=== PATIENT | male | born 1950 | race Caucasian/White ===

== ENCOUNTER → 2018-04-17 10:35 | Outpatient (CLI) | payer OTHER, SELFPAY ==
--- NOTE | 2018-04-17 | DI.CT.S_ITS ---
PROCEDURE: CT CHEST WO CON INDICATIONS: PULMONARY NODULE TECHNIQUE: Noncontrast 2.0-2.5 mm thick sections acquired from the pulmonary apices to the posterior costophrenic angles. 7 mm thick coronal and sagittal MIP reformats were then acquired. A low radiation dose technique was utilized. COMPARISON: None. FINDINGS: Image quality: Diagnostic, given the low radiation dose technique. Lungs and pleura: On series 3/image 29, is an 8mm linear nodule in the anterior right middle lobe and a 6 mm subpleural nodule along the fissure. No additional pulmonary nodules and no infiltrates or effusions. Mediastinum: Heart size is normal. No pericardial effusion. No mediastinal adenopathy by size criteria the, the largest being a 9 mm short diameter pretracheal node. Thoracic aorta and central pulmonary arteries are normal in size. Esophagus is normal in caliber. Small hiatal hernia. Bones and chest wall: No suspicious bony lesions. No vertebral body compression fractures. No axillary or supraclavicular adenopathy by size criteria, several right axillary lymph nodes measuring 7 mm in short diameter.. Thyroid gland appears normal in size. Abdomen: Visualized upper abdomen solid organs and bowel loops appear normal in the absence of contrast. IMPRESSION: 1. 2 subcentimeter nodules are present in the right middle lobe. Followup is recommended below. 2. No lymphadenopathy by size criteria. Fleischner Society criteria for SOLID lung nodule followup. Nodule size (mm)Low-risk patientHigh-risk patient<6 (single or multiple)No routine followup.Optional CT at 12 months. 6-8 (single or multiple)CT at 6-12 months, then optional CT at 18-24 mo.CT at 6-12 months, then CT at 18-24 months. >8 (single)CT at 3 months, PET-CT, or biopsy. Same as for low-risk pts. >8 (multiple)CT at 3-6 months, then optional CT at 18-24 mo.CT at 3-6 months, then CT at 18-24 months. Fleischner Society criteria for SUB-SOLID lung nodule followup. Solitary pure ground-glass nodules<6 mm (ground glass or part solid)No followup needed. 6 mm or larger (ground glass)CT at 6-12 months to confirm persistence, then CT every 2 years until 5 years.6 mm or larger (part solid)CT at 3-6 months to confirm persistence, then annual CT until 5 years if unchanged and solid component remains <6 mm. Multiple sub-solid nodules<6 mmCT at 3-6 months, then CT consider at 2 & 4 years for high risk patients. [address] at 3-6 months. Subsequent management based on most suspicious lesions. Recommendations do not apply to lung cancer screening, patients with immunosuppression, or patients with known primary cancer. Dictated by: Yassine Rose M.D. on 04/17/2018 at 12:01 Approved by: Yassine Rose M.D. on 04/17/2018 at 12:12
== END ==
PROVIDERS: Visit Provider Internal Medicine
DX: R91.8 Other nonspecific abnormal finding of lung field (principal)
CPT/HCPCS: 71250

== ENCOUNTER → 2018-06-07 09:40 | Outpatient (CLI) | payer OTHER, SELFPAY ==
--- NOTE | 2018-06-07 | DI.CT.S_ITS ---
PROCEDURE: CT CHEST WO CON INDICATIONS: LUNG NODULES TECHNIQUE: Noncontrast 2.0-2.5 mm thick sections acquired from the pulmonary apices to the posterior costophrenic angles. 7 mm thick coronal and sagittal MIP reformats were then acquired. A low radiation dose technique was utilized. COMPARISON: [facility], CT, CT CHEST WO CON, 04/17/2018, 10:38. FINDINGS: Image quality: Diagnostic, given the low radiation dose technique. Lungs and pleura: Previously noted 8 mm solid pulmonary nodule in the anterior right middle lobe is unchanged in size after accounting for differences in imaging technique on series 3 axial image 67, this nodule demonstrates a more triangular morphology than on prior exam and is immediately adjacent to the right minor fissure, and may represent a bri-fissural lymph node. A 6 mm solid nodule along the right major fissure on series 3 axial image 67 is unchanged from prior exam as well, and also has a triangular morphology suggestive of a bri-fissural lymph node. No pleural effusions, pneumothoraces, or other airspace disease. Mediastinum: Heart size is normal. No pericardial effusion. No mediastinal adenopathy by size criteria. Thoracic aorta and central pulmonary arteries are normal in size. Mild calcific plaque of the aortic arch noted. Bones and chest wall: T12 compression fracture deformity is unchanged from prior exam. There are multilevel degenerative changes of the thoracic spine and moderate degenerative changes of the left glenohumeral joint. Abdomen: 4 mm calcification in the left renal pelvis and 2 mm calcification in the right renal pelvis, partially imaged on this exam. IMPRESSION: #1. 8 mm and 6 mm solid right lung pulmonary nodules as described above that are stable to comparison exam of 04/17/2018, with triangular morphology suggesting that these may represent bri-fissural lymph nodes. Follow-up per Fleischner criteria as listed below. #2. Subcentimeter renal calcifications are partially imaged on this exam, and may represent nephroliths. Fleischner Society criteria for SOLID lung nodule followup. Nodule size (mm)Low-risk patientHigh-risk patient<6 (single or multiple)No routine followup.Optional CT at 12 months. 6-8 (single or multiple)CT at 6-12 months, then optional CT at 18-24 mo.CT at 6-12 months, then CT at 18-24 months. >8 (single)CT at 3 months, PET-CT, or biopsy. Same as for low-risk pts. >8 (multiple)CT at 3-6 months, then optional CT at 18-24 mo.CT at 3-6 months, then CT at 18-24 months. Fleischner Society criteria for SUB-SOLID lung nodule followup. Solitary pure ground-glass nodules<6 mm (ground glass or part solid)No followup needed. 6 mm or larger (ground glass)CT at 6-12 months to confirm persistence, then CT every 2 years until 5 years.6 mm or larger (part solid)CT at 3-6 months to confirm persistence, then annual CT until 5 years if unchanged and solid component remains <6 mm. Multiple sub-solid nodules<6 mmCT at 3-6 months, then CT consider at 2 & 4 years for high risk patients. [address] at 3-6 months. Subsequent management based on most suspicious lesions. Recommendations do not apply to lung cancer screening, patients with immunosuppression, or patients with known primary cancer. Dictated by: Efe Rhodes M.D. on 06/07/2018 at 10:26 Approved by: Efe Rhodes M.D. on 06/07/2018 at 10:46
== END ==
PROVIDERS: Visit Provider Internal Medicine
DX: R91.8 Other nonspecific abnormal finding of lung field (principal); N28.89 Other specified disorders of kidney and ureter
CPT/HCPCS: 71250

== ENCOUNTER 2019-01-06 03:44 | Emergency (ER) | payer OTHER, SELFPAY ==
[2019-01-06 04:19] VITALS: BP 150/100; PULSE 74; RESP 18; TEMP 36.3; O2SAT 96
[2019-01-06 05:36] VITALS: BP 162/103; PULSE 64; RESP 20; TEMP 36.6; O2SAT 95
--- NOTE | 2019-01-06 05:42 | ED.SKABFB ---
HPI - Skin/Abscess/Foreign Bdy <Rosalinda Licona DO - Last Filed: 01/06/19 18:24> General Chief complaint: Skin/Abscess/Foreign Body Stated complaint: SWELLING UNDERNEATH RIGHT SIDE OF FACE Time Seen by Provider: 01/06/19 05:38 Source: patient Mode of arrival: ambulatory Limitations: no limitations History of Present Illness HPI narrative: Patient is a 68-year-old male who presents with lymphadenopathy anterior neck. He said he has been having some upper respiratory like symptoms he has had a nonproductive cough ongoing for about a week. Last night he took some ahte-xxz-gslaerl cold medicine to see if it would help he denies any relief. He has not had any fever body aches no shortness of breath or chest pain. He has constant like runny nose is straining. And mild sore throat at times. He denies any headache or neck pain. He has no tongue pain or dental pain. Related Data Previous Rx's Medication Instructions Recorded clindamycin HCl 300 mg PO QID #40 cap 01/06/19 Allergies Allergy/AdvReac Type Severity Reaction Status Date / Time diphenhydramine Allergy Intermediate Hives Verified 01/06/19 06:40 Review of Systems <Rosalinda Licona DO - Last Filed: 01/06/19 18:24> Review of Systems ROS Unobtainable: All systems reviewed & are unremarkable except as noted in HPI and below Constitutional Denies chills, Denies fever(s), Denies lethargy and Denies weakness ENT Ears, Nose, Mouth, and Throat: Reports as per HPI, Denies change in voice, Denies dysphagia, Denies hoarseness, Denies lip swelling, Reports post nasal drip, Denies throat swelling and Denies tongue swelling Cardiovascular Denies dyspnea Respiratory Reports chest congestion, Reports cough, Denies pain on inspiration, Denies pain with cough and Denies dyspnea Gastrointestinal Gastrointestinal: Denies dysphagia Genitourinary Denies hematuria, Denies flank pain, Denies urinary incontinence and Denies urinary urgency Musculoskeletal Denies back pain, Denies muscle weakness, Denies numbness and Denies tingling Integumentary/Breasts Denies pruritus, Denies erythema, Denies rash and Denies wounds Neurologic Denies numbness, Denies tingling and Denies weakness Allergic/Immunologic Denies lip swelling, Denies throat swelling and Denies tongue swelling PFS <Rosalinda Licona DO - Last Filed: 01/06/19 18:24> Medical History Hyperlipidemia (Acute) Social History alcohol intake: never substance use type: does not use Social History alcohol intake: never substance use type: does not use Exam <Rosalinda Licona DO - Last Filed: 01/06/19 18:24> Initial Vital Signs Initial Vital Signs: Vital Signs Temperature 97.3 F L 01/06/19 04:19 Pulse Rate 74 01/06/19 04:19 Respiratory Rate 18 01/06/19 04:19 Blood Pressure 150/100 H 01/06/19 04:19 Pulse Oximetry 96 01/06/19 04:19 GENERAL: Well-appearing, well-nourished and in no acute distress. HEENT: Head atraumatic,EOMI, pupils reactive, neck is supple. No meningeal signs He does have anterior cervical lymphadenopathy more right than left. He actually has quite a bit. No difficulty swallowing EARS: Tympanic membranes visualized, no erythema or bulging, no hemotympanum PHARYNX: Mild erythema, no tonsillar exudate, CARDIOVASCULAR: Regular rate and rhythm without murmurs, rubs or gallops. RESPIRATORY: Breath sounds equal bilaterally, no wheezes rales or rhonchi. No stridor EXTREMITIES: Normal range of motion, no clubbing or edema. Neurovascularly intact NEUROLOGICAL: Alert and oriented x4.Normal gait and speech. Cranial nerves II through XII grossly intact. SKIN: Warm, dry, no laceration, no petechiae, no rashes or lesions. <Eda Paz DO - Last Filed: 01/06/19 08:10> Initial Vital Signs Initial Vital Signs: Vital Signs Temperature 97.3 F L 01/06/19 04:19 Pulse Rate 74 01/06/19 04:19 Respiratory Rate 18 01/06/19 04:19 Blood Pressure 150/100 H 01/06/19 04:19 Pulse Oximetry 96 01/06/19 04:19 Course <Rosalinda Licona DO - Last Filed: 01/06/19 18:24> Orders Ordered: Discontinued Medications Dexamethasone (Decadron) 10 mg IV NOW ONE Stop: 01/06/19 06:08 Last Admin: 03/16/19 06:41 Dose: 10 mg Vital Signs - 8 hr 01/06/19 04:19 01/06/19 05:36 01/06/19 06:38 Temperature 97.3 F L 97.9 F Pulse Rate 74 64 64 Respiratory Rate 18 20 16 Blood Pressure 150/100 H Blood Pressure [Right Arm] 162/103 H 153/101 H Pulse Oximetry 96 95 95 01/06/19 08:05 Temperature Pulse Rate 64 Respiratory Rate 20 Blood Pressure 155/96 H Blood Pressure [Right Arm] Pulse Oximetry 96 <Eda Paz DO - Last Filed: 01/06/19 08:10> Orders Ordered: Discontinued Medications Dexamethasone (Decadron) 10 mg IV NOW ONE Stop: 01/06/19 06:08 Last Admin: 01/06/19 06:41 Dose: 10 mg Vital Signs - 8 hr 01/06/19 04:19 01/06/19 05:36 01/06/19 06:38 Temperature 97.3 F L 97.9 F Pulse Rate 74 64 64 Respiratory Rate 18 20 16 Blood Pressure 150/100 H Blood Pressure [Right Arm] 162/103 H 153/101 H Pulse Oximetry 96 95 95 01/06/19 08:05 Temperature Pulse Rate 64 Respiratory Rate 20 Blood Pressure 155/96 H Blood Pressure [Right Arm] Pulse Oximetry 96 MDM - Skin/Abscess/Foreign Bdy <Rosalinda Licona DO - Last Filed: 01/06/19 18:24> Lab Data Result diagrams: 01/06/19 06:10 01/06/19 06:10 Lab Results 01/06/19 01/06/19 01/06/19 Range/Units 06:10 06:10 06:10 WBC 7.1 (4.5-11.0) X10^3/uL RBC 5.06 (4.5-5.9) X10^6/uL Hgb 13.1 L (13.5-17.5) g/dL Hct 39.3 L (41-53) % MCV 77.8 L (80-100) fL MCH 25.8 L (26-34) PG MCHC 33.2 (30-36) % RDW 18.4 H (11.6-14.8) % Plt Count 204 (150-400) X10^3/uL Neut % (Auto) 65.1 (50-75) % Lymph % (Auto) 27.0 (25-40) % [place] % (Auto) 7.5 (3-14) % Eos % (Auto) 0.0 L (2-4) % Baso % (Auto) 0.4 (0-2) % Neut # (Auto) 4600 (3656-8112) /uL Lymph # (Auto) 1900 (8626-7021) /uL [place] # (Auto) 500 (0-900) /uL Eos # (Auto) 0 (0-450) /uL Baso # (Auto) 0 (0-100) /uL Sodium 140 (137-145) mmol/L Potassium 3.7 (3.4-5.1) mmol/L Chloride 100 (98-107) mmol/L Carbon Dioxide 29 (22-32) mmol/L BUN 21 H (9-20) mg/dL Creatinine 1.10 (0.66-1.25) mg/dL Estimated GFR > 60.0 (>60) mL/min BUN/Creatinine Ratio 19.1 (6-22) Glucose 100 (80-110) mg/dL Calcium 9.9 (8.4-10.2) mg/dL Influenza A & B (PCR) Positive, type a A (Negative) Point of Care Testing Rapid Strep A Negative MDM Narrative Medical decision making narrative: Patient positive for influenza. Signed out to Dr. Paz to await CT neck <Eda Paz, DO - Last Filed: 01/06/19 08:10> Lab Data Attestation: I reviewed the patient's lab results. Lab Results 01/06/19 01/06/19 01/06/19 Range/Units 06:10 06:10 06:10 WBC 7.1 (4.5-11.0) X10^3/uL RBC 5.06 (4.5-5.9) X10^6/uL Hgb 13.1 L (13.5-17.5) g/dL Hct 39.3 L (41-53) % MCV 77.8 L (80-100) fL MCH 25.8 L (26-34) PG MCHC 33.2 (30-36) % RDW 18.4 H (11.6-14.8) % Plt Count 204 (150-400) X10^3/uL Neut % (Auto) 65.1 (50-75) % Lymph % (Auto) 27.0 (25-40) % [place] % (Auto) 7.5 (3-14) % Eos % (Auto) 0.0 L (2-4) % Baso % (Auto) 0.4 (0-2) % Neut # (Auto) 4600 (3315-8770) /uL Lymph # (Auto) 1900 (2987-0015) /uL [place] # (Auto) 500 (0-900) /uL Eos # (Auto) 0 (0-450) /uL Baso # (Auto) 0 (0-100) /uL Sodium 140 (137-145) mmol/L Potassium 3.7 (3.4-5.1) mmol/L Chloride 100 (98-107) mmol/L Carbon Dioxide 29 (22-32) mmol/L BUN 21 H (9-20) mg/dL Creatinine 1.10 (0.66-1.25) mg/dL Estimated GFR > 60.0 (>60) mL/min BUN/Creatinine Ratio 19.1 (6-22) Glucose 100 (80-110) mg/dL Calcium 9.9 (8.4-10.2) mg/dL Influenza A & B (PCR) Positive, type a A (Negative) Point of Care Testing Rapid Strep A Negative Imaging Data CT neck with contrast: Radiologist's impression: [place] read. Extensive fat stranding surrounding the right submandibular gland consistent with sialadenitis. No stone or obstruction is appreciated. No abscess is identified. Stranding extends to the floor of mouth musculature and undersurface of right parotid gland but appears to originate from the submandibular gland. There is a borderline enlarged level 1 lymph node on the right side otherwise no lymphadenopathy. Left submandibular gland and the parotid glands are grossly unremarkable. No significant abnormalities of vocal cords, aryepiglottic folds, epiglotis, piriform sinuses or vallecula, thyroid, cricoid and arytenoid cartilages are unremarkable. Thyroid gland is unremarkable. Vascular structures are patent and unremarkable. No abnormality of the skull base appreciated. Visualized intracranial intraorbital structures are unremarkable. No significant osseous lesion identified, lung apices and visualized portion of upper mediastinum are unremarkable. MDM Narrative Medical decision making narrative: Discussed findings with patient. Plan to start clindamycin. We also discussed that his influenza swab was positive. He has had some mild symptoms for the past week a fever last Tuesday, discussed that probably he is at the tail end of influenza symptoms. Patient has not had any issues with his airway or difficulty breathing. He states symptoms started pretty much yesterday. His foot is the swelling in his ft he has not had any changes in voice or difficulty with eating discussed helping to stimulate the salivary gland to continue making saliva. We discussed the CT findings as well as the rest of his lab work. Patient is to followup he will call Tuesday morning for follow-up appointment. We did offer that he can follow up with ENT as well. Also discussed red flag symptoms and reasons to return. Discharge Plan Departure Patient Disposition: Home Clinical Impression: Lymphadenopathy, Sialadenitis, Influenza Discharge Date/Time: 01/06/19 08:06 Interventions: ED Discharge Assessment Last Done: 01/06/19 08:05 Instructions: DI for Lymphadenopathy Activity Restrictions/Additional Instructions: *You have been diagnosed with lymphadenopathy and sialadenitis or inflammation of the submandibular salivary gland. *What to do: At this time it is likely that lymph nodes are reacting to the infection/inflammation of your salivary gland. *Continue to take medications as directed Motrin 600 mg every 6 hr if needed for pain or swelling Take antibiotics until gone. Suck on lemon drops or tart candies to encourage saliva production. *Follow up with your primary care provider in 2-3 days for recheck, you may also follow up with ENT if you prefer. Contact information is below. *Return to ER if you should have increasing neck swelling, pain, hoarse voice, increasing swelling of neck and/or face, difficulty this is swallowing or any new, worsening or concerning symptoms Prescriptions: New clindamycin HCl 300 mg capsule 300 mg PO QID Qty: 40 RF: 0 Referrals: Ricky Herrera MD [Physician] -
--- NOTE | 2019-01-06 06:07 | DI.CT.S_ITS ---
PROCEDURE: CT SOFT TISSUE NECK W CON INDICATIONS: large right soft tissue swelling TECHNIQUE: After the administration of intravenous contrast, 3.0 mm axial sections acquired from the sella to the aortic arch. Additional oblique axial 3.0 mm sections acquired through the pharynx. 3 mm thick coronal and sagittal reformats were generated. For radiation dose reduction, the following was used: automated exposure control. COMPARISON: None. FINDINGS: Image quality: Excellent. Lymph nodes: No enlarged lymph nodes seen throughout the neck. Vessels: Visualized vasculature appears patent. Neck spaces: The oropharynx, nasopharynx, and pharynx demonstrate no mucosal lesions. The vocal cords, false vocal cords, pyriform sinuses, epiglottis, vallecula, and tongue base all appear normal. Extramucosal spaces appear unremarkable. No abscess identified. Glands: The right submandibular gland is mildly enlarged. Edema and inflammation involving the right submandibular gland is noted. Inflammation and edema noted in the soft tissues adjacent to the right submandibular gland. There is a 5 mm maximum diameter stone in the right submandibular gland. No right submandibular ductal dilatation is identified. The parotid glands appear normal. Thyroid gland is within normal limits.. Miscellaneous: Visualized brain and orbits appear normal. Lung apices appear clear. Superficial soft tissues appear normal. Bones: No suspicious bony lesions. Spine degenerative disc disease and facet arthropathy. Visualized sinuses and mastoids appear unremarkable. . IMPRESSION: 1. Right submandibular sialadenitis. 2. 5 mm right submandibular stone. 3. No submandibular ductal dilatation. 4. No abscess. Dictated by: Summer Aguilar MD, PhD on 01/06/2019 at 8:48 Approved by: Summer Aguilar MD, PhD on 01/06/2019 at 8:52
[2019-01-06 06:26] LABS: Add Manual Diff / Slide Review NO; Basophils Absolute Auto 0 /uL (0-100); Basophils Percent Auto 0.4 % (0-2); Eosinophils Absolute Auto 0 /uL (0-450); Hematocrit 39.3 % (41-53); Hemoglobin 13.1 g/dL (13.5-17.5); Lymphocytes Absolute Auto 1900 /uL (1100-4500); Mean Corpuscular HGB Conc 33.2 % (30-36); Mean Corpuscular Hemoglobin 25.8 PG (26-34); Mean Corpuscular Volume 77.8 fL (80-100); Monocytes Absolute Auto 500 /uL (0-900); Monocytes Percent Auto 7.5 % (3-14); Neutrophils Absolute Auto 4600 /uL (1500-7000); Neutrophils Percent Auto 65.1 % (50-75); Platelet Count 204 X10^3/uL (150-400); Red Blood Cell Count 5.06 X10^6/uL (4.5-5.9); Red Cell Distribution Width 18.4 % (11.6-14.8); White Blood Cell Count 7.1 X10^3/uL (4.5-11.0)
[2019-01-06 06:33] LABS: BUN Creatinine Ratio 19.1 (6-22); Blood Urea Nitrogen 21 mg/dL (9-20); Calcium 9.9 mg/dL (8.4-10.2); Carbon Dioxide 29 mmol/L (22-32); Chloride 100 mmol/L (98-107); Estimated Glomerular Filt Rate > 60.0 mL/min (>60); Glucose 100 mg/dL (80-110); HEMOLYSIS < 15 (0-50); Potassium 3.7 mmol/L (3.4-5.1); Sodium 140 mmol/L (137-145)
[2019-01-06 06:38] VITALS: BP 153/101; PULSE 64; RESP 16; O2SAT 95
[2019-01-06] MEDS: DEXAMETHASONE 10 MG/ML VIAL IV (06:41)
[2019-01-06 08:05] VITALS: BP 155/96; PULSE 64; RESP 20; O2SAT 96
== END 2019-01-06 08:06 | disposition home or self-care (01) ==
PROVIDERS: Emergency Medicine; Emergency Provider Emergency Medicine
DX: R59.1 Generalized enlarged lymph nodes (principal); K11.20 Sialoadenitis, unspecified; J11.1 Influenza due to unidentified influenza virus with other respiratory manifestations
CPT/HCPCS: 36591; 70491; 80048; 85025; 87400; 87880; 96374; 99283; 99285; J1100; Q9967

== ENCOUNTER → 2019-02-21 13:43 | Outpatient (CLI) | payer OTHER, SELFPAY ==
--- NOTE | 2019-02-21 | DI.MRI.S_ITS ---
PROCEDURE: MR HEAD/BRAIN WO/W CON INDICATIONS: Benign neoplasm of brain, unspecified TECHNIQUE: Noncontrast axial T1 spin echo, axial T2 fast spin echo, sagittal and axial FLAIR, coronal T2 fast spin echo, axial gradient echo, axial diffusion and ADC through the brain. After the administration of contrast, axial and coronal T1 spin echo with fat saturation through the brain. COMPARISON: [facility], [facility], MRI HEAD W/WO CONTRAST, 03/18/2017, 11:33. FINDINGS: Image quality: Excellent. CSF spaces: Basal cisterns are patent. No extra-axial fluid collections. Ventricles are normal in size and shape. Brain: No midline shift. Status post transphenoidal hypophysectomy. Remaining pituitary is gross unremarkable. No intracranial bleeds or masses. No abnormal intracranial enhancement. There is cerebral volume loss for age. There is periventricular white matter chronic small vessel ischemic change. The brainstem appears normal. Diffusion-weighted images demonstrate no acute ischemic insults. No chronic ischemic insults. Normal intravascular flow voids are present. Skull and face: Calvarial marrow is normal in signal. Orbits appear normal. Sinuses: Sinuses and mastoids appear clear. IMPRESSION: 1. Post surgical sequelae. 2. No evidence of recurrent neoplasm. 3. Volume loss and small vessel ischemic disease. Dictated by: Ellen Ferro M.D. on 02/28/2019 at 12:54 Approved by: Ellen Ferro M.D. on 02/28/2019 at 12:57
== END ==
PROVIDERS: Visit Provider Family Medicine
DX: D33.2 Benign neoplasm of brain, unspecified (principal)
CPT/HCPCS: 70553; A9579

== ENCOUNTER → 2019-03-06 10:54 | Outpatient (CLI) | payer OTHER, SELFPAY ==
--- NOTE | 2019-03-06 | DI.RAD.S_ITS ---
PROCEDURE: XR BONE LENGTH SCANOGRAM INDICATIONS: RT HIP PAIN, LEG INQUALITY TECHNIQUE: A single frontal standing view of both lower extremities acquired, with measuring ruler situated between the legs. COMPARISON: None. FINDINGS: Right: Total leg length is 85.4 cm. Left: Total leg length is 87.4 cm as measured from the cephalad aspect of the left hip arthroplasty IMPRESSION: Right and left leg lengths as above. Dictated by: Albert Shah M.D. on 03/06/2019 at 13:09 Approved by: Albert Shah M.D. on 03/06/2019 at 13:13
== END ==
PROVIDERS: Visit Provider Nurse Practitioner Family
DX: M25.551 Pain in right hip (principal); M21.70 Unequal limb length (acquired), unspecified site; Z96.642 Presence of left artificial hip joint
CPT/HCPCS: 77073

== ENCOUNTER → 2019-06-26 09:53 | Outpatient (CLI) | payer OTHER, SELFPAY ==
--- NOTE | 2019-06-26 | DI.CT.S_ITS ---
PROCEDURE: CT UE LT WO CON INDICATIONS: CHRONIC LEFT SHOULDER PAIN TECHNIQUE: Noncontrast 1-1.5 mm thick sections acquired from the acromioclavicular joint to the inferior scapula, with coronal and sagittal reformatting. COMPARISON: [facility] [place], CR, XR SHOULDER 2+ VIEWS BILATERAL, 05/29/2019, 15:03. FINDINGS: Image quality: Diagnostic. Bones: There is no acute fracture, dislocation, or suspicious osseous lesion involving the osseous structures of the left shoulder. There are severe degenerative changes of the glenohumeral and acromio clavicular joints with areas of bony remodeling, joint space narrowing, and large marginal osteophytes. There may be fragmentation along the anterior glenoid, which may be related to previous injury. The remainder of the imaged osseous structures of the left chest are unremarkable. Soft tissues: There likely is a glenohumeral joint effusion. No soft tissue masses are present. There is no axillary lymphadenopathy. The included portions of the lungs and mediastinum are grossly unremarkable. There is aortic atherosclerosis. 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 No acute fractures. Dictated by: Jovon Lovelace M.D. on 06/26/2019 at 12:52 Approved by: Jovon Lovelace M.D. on 06/26/2019 at 12:55
== END ==
PROVIDERS: Family Provider Nurse Practitioner Family; PCP Nurse Practitioner Family; Visit Provider Orthopaedic Surgery
DX: M25.512 Pain in left shoulder (principal); M19.012 Primary osteoarthritis, left shoulder; G89.29 Other chronic pain
CPT/HCPCS: 73200

== ENCOUNTER → 2019-07-16 11:07 | Outpatient (CLI) | payer OTHER, SELFPAY ==
[2019-07-16 11:34] LABS: Bacteria Urine None Seen; RBC Urine None Seen (0-5/HPF); WBC Urine None Seen (0-5/HPF)
[2019-07-16 12:21] LABS: Hematocrit 39.3 % (41-53); Hemoglobin 12.7 g/dL (13.5-17.5); Mean Corpuscular HGB Conc 32.4 % (30-36); Mean Corpuscular Hemoglobin 24.6 PG (26-34); Mean Corpuscular Volume 75.9 fL (80-100); Platelet Count 166 X10^3/uL (150-400); Red Blood Cell Count 5.18 X10^6/uL (4.5-5.9); Red Cell Distribution Width 19.1 % (11.6-14.8); White Blood Cell Count 5.7 X10^3/uL (4.5-11.0)
[2019-07-16 12:24] LABS: Appearance Urine UA CLEAR; Bilirubin Urine UA NEGATIVE (NEGATIVE); Color Urine UA YELLOW; Glucose Urine UA NEGATIVE (Negative); Ketones Urine UA NEGATIVE (NEGATIVE); Leukocyte Esterase Urine UA NEGATIVE (NEGATIVE); Nitrite Urine UA NEGATIVE (Negative); Occult Blood Urine UA NEGATIVE (Negative); Protein Urine UA TRACE (Negative); Urobilinogen Urine UA 0.2 E.U./dL (0.2)
[2019-07-16 12:39] LABS: Transferrin 371 mg/dL (206-381)
[2019-07-16 12:46] LABS: Hemoglobin A1C% w Est Avg Glu 5.6 % (4.0-6.0)
[2019-07-16 12:50] LABS: Culture Indicated Urine Cult Not Indicated; Squamous Epithelial Cell Urine 0-1 /HPF (0-5/HPF)
[2019-07-16 13:42] LABS: BUN Creatinine Ratio 15.5 (6-22); Blood Urea Nitrogen 17 mg/dL (9-20); Calcium 10.3 mg/dL (8.4-10.2); Carbon Dioxide 30 mmol/L (22-32); Chloride 97 mmol/L (98-107); Estimated Glomerular Filt Rate > 60.0 mL/min (>60); Glucose 98 mg/dL (80-110); HEMOLYSIS < 15 (0-50); Potassium 3.6 mmol/L (3.4-5.1); Sodium 138 mmol/L (137-145)
== END ==
PROVIDERS: Family Provider Nurse Practitioner Family; PCP Nurse Practitioner Family; Visit Provider Orthopaedic Surgery
DX: E61.1 Iron deficiency (principal); N39.0 Urinary tract infection, site not specified; R73.9 Hyperglycemia, unspecified; Z01.818 Encounter for other preprocedural examination
CPT/HCPCS: 36415; 80048; 81001; 83036; 84466; 85027; 93005; 93010

== ENCOUNTER → 2019-07-19 11:46 | Outpatient (CLI) | payer OTHER, SELFPAY ==
--- NOTE | 2019-07-19 | DI.CT.S_ITS ---
PROCEDURE: CT CHEST WO CON INDICATIONS: Pulmonary nodule TECHNIQUE: Noncontrast 2.0-2.5 mm thick sections acquired from the pulmonary apices to the posterior costophrenic angles. 7 mm thick axial MIP and 5 mm coronal and sagittal reformats were then acquired. A low radiation dose technique was utilized. COMPARISON: [facility], CT, CT SOFT TISSUE NECK W CON, 01/06/2019, 6:13. [facility], CT, CT CHEST WO CON, 04/17/2018, 10:38. [facility], CT, CT CHEST WO CON, 06/07/2018, 9:39. FINDINGS: Image quality: Diagnostic, given the low radiation dose technique. Lungs and pleura: A couple of pulmonary nodules are present in right lung. A 5 by 8mm nodule seen in the right minor fissure (series 3 image 140), and a 5 mm nodule in the right major fissure (series 3 image 134). Both nodules are unchanged in size since 04/17/2018. Mediastinum: Heart size is normal. No pericardial effusion. No mediastinal adenopathy by size criteria. Thoracic aorta and central pulmonary arteries are normal in size. Esophagus is normal in caliber. Tiny hiatal hernia. Bones and chest wall: No suspicious bony lesions. No vertebral body compression fractures. Multiple borderline enlarged axillary lymph nodes are present, measuring up to 1.3 cm in right axilla and 1.2 cm in left axilla. These lymph nodes are also stable. Thyroid gland is normal. Abdomen: Visualized upper abdomen solid organs and bowel loops appear normal in the absence of contrast. IMPRESSION: 1. Stable subcentimeter right lung nodules. Please see enclosed followup recommendation. 2. Borderline enlarged axillary lymph nodes are also stable, most likely reactive. Fleischner Society criteria for SOLID lung nodule followup. Nodule size (mm)Low-risk patientHigh-risk patient<6 (single or multiple)No routine followup.Optional CT at 12 months. 6-8 (single or multiple)CT at 6-12 months, then optional CT at 18-24 mo.CT at 6-12 months, then CT at 18-24 months. >8 (single)CT at 3 months, PET-CT, or biopsy. Same as for low-risk pts. >8 (multiple)CT at 3-6 months, then optional CT at 18-24 mo.CT at 3-6 months, then CT at 18-24 months. Fleischner Society criteria for SUB-SOLID lung nodule followup. Solitary pure ground-glass nodules<6 mm (ground glass or part solid)No followup needed. 6 mm or larger (ground glass)CT at 6-12 months to confirm persistence, then CT every 2 years until 5 years.6 mm or larger (part solid)CT at 3-6 months to confirm persistence, then annual CT until 5 years if unchanged and solid component remains <6 mm. Multiple sub-solid nodules<6 mmCT at 3-6 months, then CT consider at 2 & 4 years for high risk patients. [address] at 3-6 months. Subsequent management based on most suspicious lesions. Recommendations do not apply to lung cancer screening, patients with immunosuppression, or patients with known primary cancer. Dictated by: Mayco Lopez M.D. on 07/19/2019 at 13:43 Approved by: Mayco Lopez M.D. on 07/19/2019 at 13:51
== END ==
PROVIDERS: Family Provider Nurse Practitioner Family; PCP Nurse Practitioner Family; Referring Provider Orthopaedic Surgery; Visit Provider Nurse Practitioner Family
DX: R91.8 Other nonspecific abnormal finding of lung field (principal); R59.0 Localized enlarged lymph nodes
CPT/HCPCS: 71250

== ENCOUNTER 2019-08-14 10:58 | Inpatient (IN) | payer OTHER, SELFPAY ==
[2019-08-09 08:54] VITALS: BMI 35.7
[2019-08-14] VITALS (17 sets, daily range): BP systolic 135–163; BP diastolic 85–107; PULSE 86–106; RESP 12–20; TEMP 36.2–37.2; O2SAT 89–95; BMI 35.7
--- NOTE | 2019-08-14 06:00 | DI.RAD.S_ITS ---
PROCEDURE: XR SHOULDER LT MIN 2V INDICATIONS: post op TECHNIQUE: 2 views of the shoulder were acquired. COMPARISON: None. FINDINGS: Bones: Postoperative changes from recent left shoulder arthroplasty. Alignment is anatomic. No acute hardware complication identified. No acute fractures or dislocations. No suspicious bony lesions. Visualized ribs appear intact. Soft tissues: No suspicious soft tissue calcifications. Expected soft tissue changes from recent surgical procedure with soft tissue drain in place. IMPRESSION: Status post left shoulder arthroplasty without evidence for hardware complication. Dictated by: Deejay Guzman M.D. on 08/15/2019 at 10:32 Approved by: Deejay Guzman M.D. on 08/15/2019 at 10:33
[2019-08-14] MEDS: CELECOXIB 200 MG CAPSULE PO (11:59)
[2019-08-14] MEDS: PREGABALIN 75 MG CAPSULE PO (11:59)
[2019-08-14] MEDS: LACTATED RINGERS 1,000 ML 100 ML IV ×2 (12:00→15:08)
--- NOTE | 2019-08-14 13:17 | PM.PREOP ---
Pre-operative Note Interval Note History & Physical reviewed/Exam performed by Physician: Yes Changes to H&P: No
--- NOTE | 2019-08-14 13:26 | PM.OP.1 ---
Operative Date/Time/Diagnoses Date of procedure: 08/14/19 Time of procedure: 16:15 Pre-op diagnosis: Left shoulder osteoarthritis Post-op diagnosis: same Procedure & Clinicians Procedure: Left total shoulder replacement Same procedure as scheduled: Yes Indications: The patient has had progressively worsening left shoulder pain with radiographic changes consistent with arthritis. Non-operative management has failed and the patient has requested total shoulder replacement. The risks, benefits and alternatives to surgery were discussed with the patient prior to proceeding. Risks discussed included, but were not limited to, failure to relieve pain, stiffness, infection, nerve damage, deep venous thrombosis, pulmonary embolism, stroke, coma, heart attack, permanent paralysis and , as well as the potential need for eventual revision of the prosthetic. Surgeon: Loy Snider Welder Fitter Apprentice: Jc Chun Click Yes if Unassisted: No Anesthesia Type: General, Peripheral nerve block and Local Operative Notes Findings: Significant osteoarthritis of the glenohumeral joint with a B2 glenoid which was corrected by reaming the high side. Closure Type: primary Specimen(s): none sent Prosthetic devices, grafts, tissues, transplants, or devices: Prosthetics used in this procedure were manufactured by the [employer] and included an Altivate short stem total shoulder system with a size 14 stem, a neutral neck a neutral 50 mm x 18 mm humeral head and a 50 mm all polyethylene pegged E +glenoid. Applied: drain(s) and implant(s) Estimated Blood Loss (mL): 150 Blood products transfused: none Procedure in detail: The patient was seen in the pre-operative area, where the patient identified the left shoulder as the operative site and this was marked with my initials. The patient received pre-operative antibiotics, underwent an interscalene block, and was taken to the operating room and placed on the operative table in the supine position. After satisfactory anesthesia, a full ?time out? was performed. The patient was repositioned in the ?beach chair? position using a dedicated positioner. All pressure points were well padded, and the knees were slightly bent to prevent tension on the sciatic nerves. The left arm was prepared from the fingers to the base of the neck with ChloroPrep in the usual fashion and draped through sterile drapes. An approximately 15 cm incision was created, starting at the clavicle above the coracoid process and extended towards the deltoid insertion. The deltopectoral interval was used to access the shoulder. The cephalic vein was taken medially. A self retaining retractor was placed. The upper centimeter of the pectoralis major tendon was released. The ?three sisters? were identified and cauterized. The axillary nerve was palpated and protected throughout the case. The biceps was released from its groove and tenodesed over the top of the pectoralis major tendon. The subscapularis was released from the lesser tuberosity with a subscapularis peel and tagged for later repair. The shoulder was dislocated and a cutting guide was used for the proximal humeral osteotomy in 30 degrees of retroversion. A starter Reamer was used followed by the cylindrical reamers. This continued in larger sizes in till cortical bite was achieved. Sequential broaching was then performed until a line to line fit with the Reamer occurred. A proximal humeral protector was then placed. We then removed the self-retaining retractor and placed retractors to access the glenoid. The subscapularis was released with a ?360 degree release? with care being taken to protect the axillary nerve with the inferior portion of this procedure. The remnant of labrum and biceps stump were removed. The guide pin was placed using a custom guide which was created by 3D CT, this was used because of the B2 glenoid. The glenoid was appropriately reamed. The guide for the peripheral holes was used and the center hole enlarged. The trial glenoid was placed with good stability. We then cemented the final implant into place after irrigating the peg holes and drying them with thrombin-soaked Gelfoam. Unfortunately placement of the glenoid was very difficult and it required us removing the cement and trying a 2nd time. The end result was a well-fixed well-positioned and well cemented glenoid. We returned our attention to the humerus, a trial humeral head was applied and a trial reduction performed. Stability was checked with 50% posterior translation with spontaneous reduction, 45? external rotation at the side with the subscapularis held in the repaired position and 70? of internal rotation in the ?scarecrow position?. This was felt to be satisfactory and the appropriate implants were opened. Five holes were drilled along the humeral osteotomy and #2 Ethibond sutures placed for eventual subscapularis repair. The humeral prosthetic was impacted into the humerus. The humeral head was applied when the stem was still slightly proud and impacted to both seat the head and fully seat the stem. The joint was relocated one final time. The joint was irrigated and the subscapularis repaired to the previously placed sutures using Aron-Mandeep sutures. The top of the subscapularis was closed to the leading edge of the supraspinatus with a figure of 8 #2 TiCron to close the rotator interval. A deep drain was placed and brought out supero-laterally. The deltopectoral interval was closed with interrupted 0 Vicryl. The subcutaneous layer was closed with 3-0 Vicryl, and the skin with a running 3-0 V-Lock suture and SteriStrips. An Aquacel Ag dressing was applied, the patient?s arm was placed in a sling, and the patient was taken to recovery having tolerated the procedure well. Complications: none Post-operative Condition: stable Disposition: PACU Plan for aftercare: The patient will be maintained on a standard total shoulder replacement protocol with passive range of motion limited to 90 degrees forward flexion, 0 degrees external rotation at the side, 0 degrees abduction and internal rotation to the body. The patient will receive aspirin and sequential compression devices for DVT prophylaxis. The patient will be discharged home when safe for the home environment, likely tomorrow.
[2019-08-14] MEDS: CEFAZOLIN 2 GM/100 ML FROZ.PIGGY IV (14:14)
--- NOTE | 2019-08-14 14:18 | SUR.PREOP ---
Block start time [1350] . Monitoring initiated and maintained throughout procedure. Oxygen and medications given per anesthesiologist instructions. Patient remained stable throughout procedure, no adverse reactions noted. Block end time [1407].
--- NOTE | 2019-08-14 14:44 | SUR.OPER ---
Beach chair with Schlein shoulder positioner. Lower body on padded OR bed. Head in foam padded head cradle, secured with straps. Non-operative arm secured <90 degrees abduction. Pillow under knees. Safety belt at thigh. Cloth tape over blanket over lower legs.
[2019-08-14] MEDS: THROMBIN (RECOMBINANT) 5,000 UNIT VIAL 5000 UNIT TOP (14:52)
[2019-08-14] MEDS: BUPIVACAINE 0.5% W/ EPI (PF) VIAL 30 ML INJ (14:52)
[2019-08-14] MEDS: TRANEXAMIC ACID 1,000 MG VIAL 1000 MG INJ ×2 (14:53→15:25)
--- NOTE | 2019-08-14 17:04 | SUR.PHASEI ---
Patient somnolent but arouses to voice. Left shoulder warm, feels tingly. Good cap refill. Left radial pulse +2 to palpation. Hemovac with red drainage. Denies pain/nausea.
[2019-08-14] MEDS: LACTATED RINGERS 1,000 ML 125 ML IV (18:21)
[2019-08-14] MEDS: ASPIRIN EC 81 MG TABLET PO (20:55)
[2019-08-14] MEDS: PRAZOSIN 1 MG CAPSULE 2 MG PO (20:55)
[2019-08-14] MEDS: DOCUSATE 100 MG CAPSULE PO (20:56)
[2019-08-14] MEDS: GABAPENTIN 600 MG TABLET PO (21:17)
--- NOTE | 2019-08-14 23:24 | PC.NURSE ---
Admission Note: Pt admitted to ICU from PACU s/p L total shoulder arthroplasty. Pt with CMS intact, can wiggle fingers, good radial pulse, pt denies pain. Pt states that thumb and index finger on left hand are tingly. Pt noted to have a swelling of soft tissue just above incision/dressing on top of shoulder. Tissue is soft/swollen, color is normal. Dr. Gonzales to bedside to evaluate with no new orders received. Pt voiding per urinal. Placed on 2 L NC with SPO2 92%. Denies SOB. Will notify MD with changes.
[2019-08-15] MEDS: TRAZODONE 50 MG TABLET PO (01:40)
[2019-08-15] MEDS: LACTATED RINGERS 1,000 ML 125 ML IV (01:57)
[2019-08-15] MEDS: OXYCODONE IR 5 MG TABLET PO ×2 (02:20→09:06)
[2019-08-15 03:43] VITALS: BP 142/92; PULSE 87; RESP 20; TEMP 36.7; O2SAT 95
[2019-08-15 05:21] LABS: Hematocrit 35.4 % (41-53); Hemoglobin 11.5 g/dL (13.5-17.5); Mean Corpuscular HGB Conc 32.5 % (30-36); Mean Corpuscular Hemoglobin 25.1 PG (26-34); Mean Corpuscular Volume 77.3 fL (80-100); Platelet Count 172 X10^3/uL (150-400); Red Blood Cell Count 4.57 X10^6/uL (4.5-5.9); Red Cell Distribution Width 19.5 % (11.6-14.8); White Blood Cell Count 9.9 X10^3/uL (4.5-11.0)
[2019-08-15] MEDS: PANTOPRAZOLE 20 MG TABLET PO (05:41)
[2019-08-15] MEDS: OXYCODONE IR 5 MG TABLET 10 MG PO (05:42)
[2019-08-15 07:38] VITALS: BP 146/78; PULSE 73; RESP 18; TEMP 37.1; O2SAT 94
--- NOTE | 2019-08-15 07:39 | P.DS_ITS ---
History of Present Illness History of Present Illness Date Patient Seen: 08/15/19 Time Patient Seen: 07:39 Chief complaint: Left Total Shoulder Arthroplasty Narrative: The history and physical is contained in the chart in a previously completed note. Please refer to that note for this information. Discharge Providers Provider Date of admission: 08/14/19 10:58 Discharge Date: 08/15/19 Primary care physician: CJ Montenegro Consults: 08/14/19 06:00 Consult to Anesthesiology Routine Comment: Consulting Provider: Anesthesiologist Reason for consultation: Regional block for post operative pain control 08/14/19 17:32 Consult to Discharge Planning Routine Comment: Consult to Physical Therapy Evaluate & Treat Comment: Pendulums, PROM 0 ER, 90 FF, IR to body. Physician Instructions: Evaluate and Treat Consult to Respiratory Therapy Evaluate & Treat Comment: Physician Instructions: Evaluate and treat Discharge provider: Loy Snider MD Summary Hospital Course Discharge Diagnosis: 1. Left shoulder osteoarthritis 2. Post hemorrhagic anemia Hospital Course: The patient was admitted to the hospital and taken directly to the operating room on August 14, 2019. He underwent a left total shoulder re placement without complication. He was stable overnight. When examined this morning his block is still partially in place. At the time of this dictation it is anticipated he will be ready for discharge later in the day. Status at Discharge Cognitive/behavioral status at discharge: oriented Functional status at discharge: independent ambulation Overall status at discharge: patient is progressing back to baseline Time Spent with Patient Time spent: Less than 30 minutes Exam Vital Signs (past 8 hours): - 08/14/19 23:53 08/15/19 03:43 08/15/19 07:38 Temperature 98.7 F 98.1 F 98.7 F Pulse Rate 106 H 87 73 Respiratory Rate 20 20 18 Blood Pressure 135/86 142/92 H 146/78 H Pulse Oximetry 93 95 94 Oxygen Delivery Method Room Air Oxygen Flow Rate 2 Narrative Exam Narrative: Left shoulder wound is dressed with mild drainage on the bandage. Light touch is intact in the radial, ulnar, median and intact but still slightly altered in the musculocutaneous and axillary nerve distributions. The patient can extend his thumb, abduct his thumb, abduct his fingers, and fire his deltoid. As of yet he cannot flex his elbow. Objective Labs Result Diagrams: 08/15/19 05:03 Labs: Laboratory Results - last 24 hr 10/22/19 10/23/19 17:55 05:03 WBC 9.9 RBC 4.57 Hgb 11.5 L Hct 35.4 L MCV 77.3 L MCH 25.1 L MCHC 32.5 RDW 19.5 H Plt Count 172 Nasal Screen MRSA (PCR) Negative for mrsa Discharge Plan Discharge Plan Patient Disposition: Home Discharge Med Rec/Prescriptions Prescriptions: New aspirin 81 mg Tablet,Delayed Release (Dr/Ec) 81 mg PO BID 42 Days Qty: 84 RF: 0 oxycodone 5 mg Tablet 5 mg PO Q3HR PRN (Reason: Pain, Moderate (4-6)) Qty: 40 RF: 0 Continued cyclobenzaprine 10 mg Tablet 10 mg PO BEDTIME RF: 0 albuterol sulfate 2.5 mg /3 mL (0.083 %) Solution For Nebulization 2.5 mg INHALATION Q4-6H PRN (Reason: Shortness Of Breath) RF: 0 trazodone 50 mg Tablet 50 mg PO BEDTIME RF: 0 amlodipine 10 mg Tablet 10 mg PO DAILY RF: 0 gabapentin 300 mg Capsule 600 mg PO TID RF: 0 allopurinol 300 mg Tablet 300 mg PO DAILY RF: 0 hydrochlorothiazide 25 mg Tablet 25 mg PO DAILY RF: 0 albuterol sulfate 90 mcg/actuation Hfa Aerosol Inhaler 2 puff INHALATION Q4-6H PRN (Reason: Shortness Of Breath) RF: 0 prazosin 2 mg Capsule 2 mg PO BID RF: 0 mometasone 220 mcg/ actuation (60) Aerosol Powdr Breath Activated 2 inh INHALATION QAM PRN (Reason: Shortness Of Breath) RF: 0 omeprazole 20 mg Tablet,Delayed Release (Dr/Ec) 20 mg PO DAILY RF: 0 levothyroxine 75 mcg Capsule 75 mcg PO DAILY RF: 0 olodaterol 2.5 mcg/actuation Mist 2 inh INHALATION DAILY PRN (Reason: Shortness Of Breath) RF: 0 testosterone cypionate 200 mg/mL Kit 100 mg IM Q2W RF: 0 Follow up/Referrals: Loy Snider MD [Physician] - 2 Weeks Nils Lott ARNP [Primary Care Provider] - Provider Discharge Instructions Diet: Diet as Tolerated and Regular Activity: You may use your left arm in front of your body below shoulder level. Wear the sling until instructed to discontinue it by physical therapy. Cold/Heat Therapy: You may apply ice to the left shoulder for 15 minutes of every hour as needed for pain control. Skin/Wound/Dressing Care Report to your healthcare provider any signs of infection, such as:: chills, fe david, night sweats, increased pain, unusual drainage and unusual redness Dressing: Leave the dressing intact until your follow-up. You may shower with the dressing in place. If the central strip of the dressing becomes saturated with either water or blood, please call the office to have it changed. Visit Report/Discharge Packet Instructions: DI for Shoulder Replacement Stand Alone Forms: Surgery Discharge Discharge Data Primary Care Provider: Nils Lott
[2019-08-15] MEDS: LEVOTHYROXINE 75 MCG TABLET PO (07:40)
[2019-08-15] MEDS: ALLOPURINOL 300 MG TABLET PO (08:59)
[2019-08-15] MEDS: AMLODIPINE 5 MG TABLET 10 MG PO (09:03)
[2019-08-15] MEDS: ASPIRIN EC 81 MG TABLET PO (09:03)
[2019-08-15] MEDS: DOCUSATE 100 MG CAPSULE PO (09:03)
[2019-08-15] MEDS: GABAPENTIN 600 MG TABLET PO (09:04)
[2019-08-15] MEDS: hydroCHLOROthiazide 25 MG TABLET PO (09:05)
--- NOTE | 2019-08-15 09:24 | CM.IDA ---
Initial DCP Assessment Note: Pt is a 69 yo male, resident of [place], now POD#1 from shoulder surgery w/ Dr Snider PCP: Nils Lott [place]ayer: [place] Reviewed chart, met w/pt to explain SW role. Pt is indp. at his baseline and has arranged for his ex Makenna, who works as a cg, to visit him in [place] (she lives in [facility]) to assist him in his recovery. Pt plans to do outpt PT as ordered. PT Sheila outside of about to begin initial eval, pt is expected to DC today pending clearance from PT. Ortho PA has already initiated DC order this morning. No needs expected from DC planning team although will remain available in case this changes today. JOSE Lopez Discharge Planning/Care Management CM Discharge Assessment Start: 08/15/19 09:22 Freq: Status: Active Protocol: Document 08/15/19 09:23 JANEL (Rec: 08/15/19 09:24 [id number]) Discharge Planning Assessment Assigned Patient Services Coordinator JOSE Torres DPOA/Assigned Designee Name Sergio (son) Shahriar (brother) Contact Information Sergio: [phone] Shahriar: [phone] Advance Directives? Yes Advance Directives on File No History Provided By Patient,Medical Record Prior Living Arrangements House Household Members none Type of transporation used prior to Drives own vehicle admit Independent with ADL's Yes Is patient alert and oriented? Yes Patient/Family Preference OP PT Therapy Barriers to Discharge No Discharge Plan Home Transportation Arrangement family Referrals Initiated None needed Whiteboard Updated in Patient Room with Yes name and ext. # of Patient Services Coordinator Review Status In Process
[2019-08-15] MEDS: PRAZOSIN 1 MG CAPSULE 2 MG PO (10:12)
--- NOTE | 2019-08-15 10:14 | PT.IIE ---
Surgery Performed Operation Date: 08/14/19 13:15 Actual Procedures p Total Shoulder Arthroplasty(Left) - Loy Snider MD Surgical History (Last Updated 08/09/19 @ 09:32 by Lydia Washington RN) History of colonoscopy (Acute) History of lumbar laminectomy (Acute) History of total left hip arthroplasty (Acute ~2013) Hx of hernia repair (Acute ~2015) Hx of tonsillectomy (Acute) Medical History (Last Updated 08/09/19 @ 09:52 by Lydia Washington RN) Colonic polyp (Acute) Depression (Acute) Diverticulosis (Acute) GERD (gastroesophageal reflux disease) (Acute) Gout (Acute) Hearing impaired (Acute) Hernia (Acute) HTN (hypertension) (Acute) Hyperlipidemia (Acute) Hypothyroid (Acute) Influenza A (Acute ~01/06/19) Osteoarthritis (Acute) Pituitary adenoma (Acute ~2013) Pulmonary nodule (Acute) Scoliosis (Acute) Spinal stenosis (Acute) Physical Therapy Inpatient Evaluation/Re-Eval M1 PT/OT-IP Prior Functional Status Start: 08/15/19 09:04 Freq: NEEDED Status: Active Protocol: Document 08/15/19 09:59 AW (Rec: 08/15/19 10:14 AW [id number]) Medical Review Prior Functional Status Medical History Reviewed Yes Diet/Fluid Consistency Regular Communication Able to make needs known Mobility and Gait Independent with all functional mobility, no use of assistive device. He does report one non-injurious fall in his home 1.5 years ago but does recall any other falls. Activities of Daily Living and IADL's Independent Social History Household Members none Living Arrangements House Number of Floors (Floors) One Floor Number of Stairs To Enter/Railing? 2 TREVOR no railing Home Environment Standard Height Toilet,Walk in Shower,Built-In Shower Seat, Bidet Home Equipment Front Wheel Walker,Quad Cane, Straight Cane,Crutches,Raised Toilet Seat Without Armrests, Hand Held Shower,Hospital Bed Employment Status Retired Additional Social History Comment Pt lives alone M2 PT-IP Current Condition Start: 08/15/19 09:04 Freq: NEEDED Status: Active Protocol: Document 08/15/19 09:59 AW (Rec: 08/15/19 10:14 AW [id number]) Physical Therapy Current Condition Current Condition Evaluation Date 08/15/19 Treatment Diagnosis s/p L TSA, impaired mobility Precautions Shoulder Precautions Sling,PROM,Internal Rotation to Body,No External Rotation, No Abduction,Forward Flexion to 90 degrees,Pendulums Weight Bearing Status Weight Bearing Status Full Weight Bearing M3 PT-IP Subjective Start: 08/15/19 09:04 Freq: NEEDED Status: Active Protocol: Document 08/15/19 09:59 AW (Rec: 08/15/19 10:14 AW [id number]) Subjective Physical Therapy Visit Type Type Initial Evaluation Visit Start Time 09:17 Visit Stop Time 09:53 Total Visit Minutes 36 Number of MANAGING MANAGER Visits 0 Physical Therapy Visit Comments Patient Comments Pt is anxious to go home Patient Goals Pt hopes to discharge to home today Therapy Pain Assessment Pain When Pain Assessed During Mobility Pain Present Pain Present Pain Reported Location left shoulder Intensity 4 Scale Used 3/10 at rest; 4/10 with mobility Description Throbbing Pain Management Techniques Apply Cold,Re-positioning, Timing of Activity with Medications M4 PT-IP Mobility and Gait Start: 08/15/19 09:04 Freq: NEEDED Status: Active Protocol: Document 08/15/19 09:59 AW (Rec: 08/15/19 10:14 AW [id number]) PT-Bed Mobility Assessment Supine to Sit Supine to Sit Standby Assistance Scooting Scooting to Edge of Bed Standby Assistance Scooting Up and Down in Bed Standby Assistance PT-Transfer Assessment Sit to and From Stand Sit to and from Stand Standby Assistance Equipment Transfer Assistive Device Gait Belt Transfers Transfer Destination Chair,Toilet Transfer Technique pt ambulated without AD Transfer Ability Level of Assist Standby Assistance Comments Mobility Comments Pt required cues to avoid shoulder elevation. He was steady on his feet Gait Assessment Gait Gait Assistance Required: Independent,Standby Assistance Distance (Feet) 100 Able to Maintain Weight Bearing Status Yes During Gait Assistive Devices Assistive Device Gait Belt Orthotic/Prosthetic Devices or Brace: No Gait Deviations General Gait Pattern Wide Based Gait Factors Limiting Gait Function Factors Limiting Gait Function Decreased Activity Tolerance, Decreased Strength,Pain Comments Gait Comments Pt was independent to SBA for ambulation ~100 feet on tile and carpet. He managed turns and side stepping without increased need for assist. PT-Balance Assessment Sitting Balance and Reactions Static Sitting Balance Ability Normal Dynamic Sitting Balance Ability Normal Standing Balance and Reactions Static Standing Balance Ability Good Dynamic Standing Balance Ability Good Device Used none M5 PT-IP Objective Assessments Start: 08/15/19 09:04 Freq: NEEDED Status: Active Protocol: Document 08/15/19 09:59 AW (Rec: 08/15/19 10:14 AW [id number]) Orientation Orientation/Cognition Level of Alertness Alert Orientation Name,Date,Place,Situation Language Function Ability No Deficits Noted Safety Awareness Understands Safety Issues Memory Description No Deficits Noted Gross Range of Motion Upper Extremity ROM Assessment Left Impaired Lower Extremity ROM Assessment Within Functional Limits Strength Upper Extremity Strength Assessment Left Impaired Comments Strength Comments RUE grossly 5/5. BLE 4+/5 in all planes. Coordination Assessment Gross Coordination Gross Coordination WNL Sensation Assessment Sensation Gross Sensation Left UE Impaired,Left LE Impaired Light Touch Impaired Comments Sensation Comments Pt reports ongoing numbness in left lateral arm. On exam, he exhibited impaired light touch on dorsal left foot. M6 PT-IP Treatment Start: 08/15/19 09:04 Freq: NEEDED Status: Active Protocol: Document 08/15/19 09:59 AW (Rec: 08/15/19 10:14 AW [id number]) Physical Therapy Treatment Exercises Exercises Shoulder Pendulums,Elbow Flexion/Extension,Wrist ROM, Hand ROM Education Education Provided Precautions,Weight Bearing Status,Post-Op Packet,Safety Brace Education [place],Patient Other Treatments Other Treatment Performed Pt educated on use of sling while up and need for LUE support while not in brace as in the shower. 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 PLOF: Pt was independent with all functional mobility, ADL's , IADL's. CLOF: Pt required no more than SBA for all mobility. He was able to verbalize post-op precautions, but required verbal cues to avoid shoulder elevation. Pt educated on donning/doffing shoulder brace, performance of ADL's, forward/backward pendulums, and PROM for left elbow, wrist, fingers. PT recommends discharge to home and outpatient PT when medically cleared. Goals Bed Mobility Goal Independent Transfer Goal Independent Gait Goal Independent Other Goals up/down 2 stairs independent without railing Days to Meet Goals 1 Frequency of Treatment Frequency Of Treatment Twice a Day Treatment Plan Physical Therapy Treatment Plan Bed Mobility Training,Transfer Training,Gait Training, Therapeutic Exercise,Balance Retraining,Post Op Education, Discharge Planning,Hot or Cold Pack,Manual Therapy Recommendations To Nursing Amount of Assist Needed Standby Assistance Discharge Recommendations PT Discharge Recommendations Home,Outpatient PT
== END 2019-08-15 10:30 | disposition home or self-care (01) | DRG 483 ==
LOC: AC 11:02 → ICU 11:59
PROVIDERS: Admitting Provider Orthopaedic Surgery; Family Provider Nurse Practitioner Family; PCP Nurse Practitioner Family; Visit Provider Orthopaedic Surgery
PROC: 0RRK0JZ Replacement of Left Shoulder Joint with Synthetic Substitute, Open Approach (ICD-10-PCS; CPT 23472; principal; 2019-08-14 13:15)
DX: M19.012 Primary osteoarthritis, left shoulder (principal); E03.9 Hypothyroidism, unspecified; I10 Essential (primary) hypertension; E78.5 Hyperlipidemia, unspecified; K21.9 Gastro-esophageal reflux disease without esophagitis; M10.9 Gout, unspecified; Z87.891 Personal history of nicotine dependence
CPT/HCPCS: 36415; 64450; 73030; 85027; 87797; 97161; 97530; C1776; J0690; J1100; J2250; J2704; J3010

== ENCOUNTER 2020-08-19 10:36 | Emergency (ER) | payer OTHER, SELFPAY ==
[2019-08-14 18:00] VITALS: BMI 35.7
--- NOTE | 2020-08-19 10:37 | ED_ITS ---
HPI - Ear Problem General Chief complaint: Ear Stated complaint: Ear pain Time Seen by Provider: 08/19/20 10:37 Source: patient Mode of arrival: Ambulatory Limitations: no limitations History of Present Illness HPI Narrative: 70M nonsmoker with history of asthma and HTN presents with the chief complaint of some right ear pain and drainage that started over the course of the night. He denies any injury, diving, flights, or systemic findings such as fever, chills nor nausea or vomiting. He 1st sent some pain and swelling and itching of his canal and now has symptoms as stated above. He has no pain on palpation of his mastoid. Related Data Home Medications Medication Instructions Recorded Confirmed albuterol sulfate 2 puff INHALATION Q4-6H PRN 08/09/19 08/14/19 albuterol sulfate 2.5 mg INHALATION Q4-6H PRN 08/09/19 08/14/19 allopurinol 300 mg PO DAILY 08/09/19 08/14/19 amlodipine 10 mg PO DAILY 08/09/19 08/14/19 cyclobenzaprine 10 mg PO BEDTIME 08/09/19 08/14/19 gabapentin 600 mg PO TID 08/09/19 08/14/19 hydrochlorothiazide 25 mg PO DAILY 08/09/19 08/14/19 levothyroxine 75 mcg PO DAILY 08/09/19 08/14/19 mometasone 2 inh INHALATION QAM PRN 08/09/19 08/14/19 olodaterol 2 inh INHALATION DAILY PRN 08/09/19 08/14/19 omeprazole 20 mg PO DAILY 08/09/19 08/14/19 prazosin 2 mg PO BID 08/09/19 08/14/19 testosterone cypionate 100 mg IM Q2W 08/09/19 08/14/19 trazodone 50 mg PO BEDTIME 08/09/19 08/14/19 Previous Rx's Medication Instructions Recorded oxycodone 5 mg PO Q3HR PRN #40 tab 08/15/19 ofloxacin 5 drop EAR-RIGHT DAILY 10 Days ml 08/19/20 Allergies Allergy/AdvReac Type Severity Reaction Status Date / Time clindamycin Allergy Severe Rash Verified 08/19/20 10:53 diphenhydramine Allergy Intermediate Hives Verified 08/19/20 10:53 acetaminophen Allergy Mild Rash on Verified 08/19/20 10:53 arms lisinopril AdvReac Severe Cough Verified 08/19/20 10:53 Review of Systems Constitutional Constitutional: Denies chills, Denies fatigue, Denies fever(s), Denies frequent falls, Denies lethargy and Denies weakness Eyes Eyes: Denies change in vision, Denies eye discharge, Denies irritation and Denies loss of vision ENT Ears, Nose, Mouth, and Throat: Denies change in voice, Denies dizziness, Reports ear discharge, Denies neck pain, Denies sore throat and Denies throat swelling Cardiovascular Cardiovascular: Denies chest pain, Denies irregular heart rhythm, Denies lightheadedness, Denies palpitations, Denies dyspnea, Denies dyspnea on exertion and Denies orthopnea Respiratory Respiratory: Denies cough, Denies dyspnea, Denies dyspnea on exertion and Denies wheezing Gastrointestinal Gastrointestinal: Denies abdominal pain, Denies change in bowel habits, Denies diarrhea, Denies nausea and Denies vomiting Musculoskeletal Musculoskeletal: Denies neck pain and Denies numbness Integumentary/Breasts Skin/Breast: Denies pruritus, Denies erythema, Denies rash and Denies wounds Neurologic Neurologic: Denies behavioral changes, Denies confusion, Denies dizziness, Denies frequent falls, Denies loss of vision, Denies numbness and Denies weakness Psychiatric Psychiatric: Denies anxiety, Denies behavioral changes, Denies confusion, Denies depression, Denies homicidal ideation and Denies suicidal ideation Endocrine Endocrine: Denies fatigue, Denies flushing and Denies palpitations Hematologic/Lymphatic Hematologic/Lymphatic: Denies easy bruising Allergic/Immunologic Allergic/Immunologic: Denies urticaria, Denies throat swelling and Denies wheezing Patient History Medical History Colonic polyp (Acute) Depression (Acute) Diverticulosis (Acute) GERD (gastroesophageal reflux disease) (Acute) Gout (Acute) Hearing impaired (Acute) Hernia (Acute) HTN (hypertension) (Acute) Hyperlipidemia (Acute) Hypothyroid (Acute) Influenza A (Acute ~01/06/19) Osteoarthritis (Acute) Pituitary adenoma (Acute ~2014) Pulmonary nodule (Acute) Scoliosis (Acute) Spinal stenosis (Acute) Surgical History History of colonoscopy (Acute) History of lumbar laminectomy (Acute) History of total left hip arthroplasty (Acute ~2013) Hx of hernia repair (Acute ~2016) Hx of tonsillectomy (Acute) Social History household members: none Smoking Status: Former smoker alcohol intake: current substance use type: does not use Smoking Status: Former smoker Substance Use Type: marijuana Exam Narrative Exam Narrative: GENERAL: [70] year old patient appears stated age. Well- nourished, well-developed patient, in mild distress. HEAD: Atraumatic. Normocephalic. EYES: Pupils equal round and reactive. Extraocular motions intact. No scleral icterus. No injection or drainage. ENT: Right external auditory canal with purulence fluid and debris in the canal, mild edema of the canal itself. Unable to visualize the tympanic membrane. No tenderness with pressure on erickson out, no tenderness to palpation over mastoid processes. Nose without bleeding, purulent drainage. Throat without erythema, tonsillar hypertrophy or exudate. Airway patent. NECK: Trachea midline. Non tender CARDIOVASCULAR: Regular rate and rhythm without murmurs, gallops, or rubs. RESPIRATORY: Clear to auscultation. Breath sounds equal bilaterally. No wheezes, rales, or rhonchi. GASTROINTESTINAL: Abdomen soft, non-tender, nondistended. EXTREMITIES: No edema or joint tenderness. BACK: Nontender without deformity or crepitance. No flank tenderness. NEURO: AOx3. SKIN: No rash or erythema of visible areas Initial Vital Signs Initial Vital Signs: Vital Signs Temperature 98.2 F 08/19/20 10:50 Pulse Rate 98 H 08/19/20 10:50 Respiratory Rate 16 08/19/20 10:50 Blood Pressure 165/100 H 08/19/20 10:50 Pulse Oximetry 100 08/19/20 10:50 Course Vital Signs Vital signs: Vital Signs - 8 hr 08/19/20 10:50 Temperature 98.2 F Pulse Rate 98 H Respiratory Rate 16 Blood Pressure 165/100 H Pulse Oximetry 100 Medical Decision Making MDM Narrative Medical decision making narrative: Minimal swelling of the external auditory canal and noted drainage with debris. Unable to visualize tympanic membrane but the patient's description of his symptoms and exam are most suspicious for otitis externa, however otitis media with perforation was considered. Return precautions given to patient any understands need to follow-up with ear nose and throat. Questions have been answered to his apparent satisfaction. Discharge Plan Departure Patient Disposition: Home Clinical Impression: Otitis externa Qualifiers: Otitis externa type: diffuse Chronicity: acute Laterality: right Qualified Code(s): H60.311 - Diffuse otitis externa, right ear Discharge Date/Time: 08/19/20 11:04 Activity Restrictions/Additional Instructions: *You have been diagnosed with [right otitis externa] *What to do: *Take medications as directed *Follow up Dr. Carrasco or Dr. Lacy at [facility] in 2-3 days, call for an appointment. Let them know you were seen in the Emergency Department and that we ask that you be seen in follow up *Return to ER if you should have any new, worsening or concerning symptoms, such as [fever, facial swelling or pain, vomiting or other bothersome symptoms ] Prescriptions: New ofloxacin 0.3 % drops 5 drop EAR-RIGHT DAILY 10 Days RF: 0 No Action cyclobenzaprine 10 mg Tablet 10 mg PO BEDTIME RF: 0 albuterol sulfate 2.5 mg /3 mL (0.083 %) Solution For Nebulization 2.5 mg INHALATION Q4-6H PRN (Reason: Shortness Of Breath) RF: 0 trazodone 50 mg Tablet 50 mg PO BEDTIME RF: 0 amlodipine 10 mg Tablet 10 mg PO DAILY RF: 0 gabapentin 300 mg Capsule 600 mg PO TID RF: 0 allopurinol 300 mg Tablet 300 mg PO DAILY RF: 0 hydrochlorothiazide 25 mg Tablet 25 mg PO DAILY RF: 0 albuterol sulfate 90 mcg/actuation Hfa Aerosol Inhaler 2 puff INHALATION Q4-6H PRN (Reason: Shortness Of Breath) RF: 0 prazosin 2 mg Capsule 2 mg PO BID RF: 0 mometasone 220 mcg/ actuation (60) Aerosol Powdr Breath Activated 2 inh INHALATION QAM PRN (Reason: Shortness Of Breath) RF: 0 omeprazole 20 mg Tablet,Delayed Release (Dr/Ec) 20 mg PO DAILY RF: 0 levothyroxine 75 mcg Capsule 75 mcg PO DAILY RF: 0 olodaterol 2.5 mcg/actuation Mist 2 inh INHALATION DAILY PRN (Reason: Shortness Of Breath) RF: 0 testosterone cypionate 200 mg/mL Kit 100 mg IM Q2W RF: 0 oxycodone 5 mg Tablet 5 mg PO Q3HR PRN (Reason: Pain, Moderate (4-6)) Qty: 40 RF: 0 Referrals: Troy Carrasco MD [Physician] - Nils Lott ARNP [Primary Care Provider] -
[2020-08-19 10:50] VITALS: BP 165/100; PULSE 98; RESP 16; TEMP 36.8; O2SAT 100; BMI 38.0
== END 2020-08-19 11:04 | disposition home or self-care (01) ==
PROVIDERS: Emergency Provider Emergency Medicine; Family Provider Nurse Practitioner Family; PCP Nurse Practitioner Family
DX: H60.311 Diffuse otitis externa, right ear (principal)
CPT/HCPCS: 99281

== ENCOUNTER → 2021-06-10 12:50 | Outpatient (CLI) | payer OTHER, SELFPAY ==
[2019-08-14 18:00] VITALS: BMI 35.7
[2021-06-10 16:18] LABS: Enterotoxigenic E.coli It/st Detected (Not Detect)
[2021-06-10 16:19] LABS: Adenovirus F 40/41 Not Detected (Not Detect); Astrovirus Not Detected (Not Detect); Campylobacter Not Detected (Not Detect); Clostridium difficile toxin AB Not Detected (Not Detect); Cryptosporidium Not Detected (Not Detect); Cyclospora cayetanensis Not Detected (Not Detect); Entamoeba histolytica Not Detected (Not Detect); Enteroaggregative E.coli Not Detected (Not Detect); Enteropathogenic E.coli Not Detected (Not Detect); Giardia lamblia Not Detected (Not Detect); Norovirus GI/GII Not Detected (Not Detect); Plesiomonsa shigelloides Not Detected (Not Detect); Rotavirus A Not Detected (Not Detect); Salmonella Not Detected (Not Detect); Sapovirus Not Detected (Not Detect); Shiga-like toxin-prod E.coli Not Detected (Not Detect); Shigella/Enteroinvasive E.coli Not Detected (Not Detect); Vibrio Not Detected (Not Detect); Vibrio cholerae Not Detected (Not Detect); Yersinia enterocolitica Not Detected (Not Detect)
== END ==
PROVIDERS: Family Provider Nurse Practitioner Family; PCP Nurse Practitioner Family; Referring Provider Physician Assistant; Visit Provider Physician Assistant
DX: R19.7 Diarrhea, unspecified (principal); Z90.2 Acquired absence of lung [part of]
CPT/HCPCS: 87507

== ENCOUNTER → 2021-10-13 08:53 | Outpatient (CLI) | payer OTHER, SELFPAY ==
[2019-08-14 18:00] VITALS: BMI 35.7
--- NOTE | 2021-10-13 | DI.US.S_ITS ---
PROCEDURE: US ABD AORTA ANEURYSM SCREEN INDICATIONS: NICOTINE DEPENDENCE TECHNIQUE: Real time scanning was performed of the aorta and iliac arteries, with image documentation. COMPARISON: None. FINDINGS: Aorta: Proximal aortic diameter is suboptimally seen but measures roughly 3.1 cm. Mid-aorta measures 2.1 cm. Distal aortic diameter is 2.3 cm. Iliac arteries: Right common iliac artery measures 1.9 cm. Left common iliac artery measures 2.0 cm. IMPRESSION: 1. Mild aneurysmal dilatation of the proximal abdominal aorta likely measuring up to 3.1 cm. Three year follow-up ultrasound is recommended to assess for stability. 2. No mid to distal aortic or common iliac artery aneurysm. Dictated by: Yadi Cardenas M.D. on 10/13/2021 at 13:02 Approved by: Yadi Cardenas M.D. on 10/13/2021 at 13:05
== END ==
PROVIDERS: Family Provider Nurse Practitioner Family; PCP Nurse Practitioner Family; Referring Provider Nurse Practitioner Family; Visit Provider Nurse Practitioner Family
DX: Z13.6 Encounter for screening for cardiovascular disorders (principal); I71.4 Abdominal aortic aneurysm, without rupture; F17.211 Nicotine dependence, cigarettes, in remission
CPT/HCPCS: 76706

== ENCOUNTER 2021-12-30 12:29 | Emergency (ER) | payer OTHER, SELFPAY ==
[2019-08-14 18:00] VITALS: BMI 35.7
[2021-12-30 12:38] VITALS: BP 149/96; PULSE 90; RESP 15; TEMP 36.2; O2SAT 95; BMI 38.7
--- NOTE | 2021-12-30 14:13 | ED_ITS ---
HPI - Nausea/Vomiting/Diarrhea <CJ Green - Last Filed: 12/30/21 18:55> General Chief complaint: Nausea/Vomiting/Diarrhea Stated complaint: reaction to booster,vomiting Time Seen by Provider: 12/30/21 13:53 Source: patient Mode of arrival: Ambulatory History of Present Illness HPI Narrative: Male presents to the emergency department with nausea and vomiting that started after his COVID booster vaccination yesterday. Patient states he has been unable to keep anything down today. Patient denies any hives, shortness of breath, wheezing, cough but does endorse he was unable to keep any of his medic ations on this morning. He denies any diarrhea, fever, chest pain, mouth or oral swelling, or any other symptoms besides nausea and vomiting. Patient denies any known allergens, denies any new foods or other new exposures. Related Data Home Medications Medication Instructions Recorded Confirmed albuterol sulfate 2.5 mg INHALATION Q4-6H PRN 08/09/19 08/14/19 albuterol sulfate 90 mcg/actuation 2 puff INHALATION Q4-6H PRN 08/09/19 08/14/19 aerosol inhaler allopurinol 300 mg tablet 300 mg PO DAILY 08/09/19 08/14/19 amlodipine 10 mg tablet 10 mg PO DAILY 08/09/19 08/14/19 cyclobenzaprine 10 mg tablet 10 mg PO BEDTIME 08/09/19 08/14/19 gabapentin 300 mg capsule 600 mg PO TID 08/09/19 08/14/19 hydrochlorothiazide 25 mg tablet 25 mg PO DAILY 08/09/19 08/14/19 levothyroxine 75 mcg capsule 75 mcg PO DAILY 08/09/19 08/14/19 mometasone 2 inh INHALATION QAM PRN 08/09/19 08/14/19 olodaterol 2.5 mcg/actuation mist 2 inh INHALATION DAILY PRN 08/09/19 08/14/19 for inhalation omeprazole 20 mg tablet,delayed 20 mg PO DAILY 08/09/19 08/14/19 release prazosin 2 mg capsule 2 mg PO BID 08/09/19 08/14/19 testosterone cypionate 200 mg/mL 100 mg IM Q2W 08/09/19 08/14/19 intramuscular kit trazodone 50 mg tablet 50 mg PO BEDTIME 08/09/19 08/14/19 Previous Rx's Medication Instructions Recorded oxycodone 5 mg tablet 5 mg PO Q3HR PRN #40 tab 08/15/19 ondansetron 4 mg disintegrating 4 mg PO Q8HR PRN #10 tab 12/30/21 tablet Allergies Allergy/AdvReac Type Severity Reaction Status Date / Time clindamycin Allergy Severe Rash Verified 12/30/21 12:38 diphenhydramine Allergy Intermediate Hives Verified 12/30/21 12:38 acetaminophen Allergy Mild Rash on Verified 12/30/21 12:38 arms lisinopril AdvReac Severe Cough Verified 12/30/21 12:38 Review of Systems <CJ Green - Last Filed: 12/30/21 18:55> Review of Systems Narrative: General: denies fever, chills, malaise, sweats, fatigue Head/Neck: denies headache, neck pain, dizziness Eyes: denies visual changes, eye pain Cardio: denies chest pain, palpitations, edema Respiratory: denies dyspnea, cough, orthopnea GI: denies abdominal pain, endorses nausea and vomiting without diarrhea : denies dysuria, hematuria, urinary retention, frequency or incontinence MSK: denies joint pain, muscle weakness Skin: denies rash, itching, skin lesions or other Neuro: denies numbness, tingling Patient History <CJ Green - Last Filed: 12/30/21 18:55> Medical History (Updated 12/30/21 @ 14:55 by CJ Green) Colonic polyp Depression Diverticulosis GERD (gastroesophageal reflux disease) Gout Hearing impaired Hernia HTN (hypertension) Hyperlipidemia Hypothyroid Influenza A (~01/06/19) Osteoarthritis Pituitary adenoma (~2013) Pulmonary nodule Scoliosis Spinal stenosis Surgical History History of colonoscopy History of lumbar laminectomy History of total left hip arthroplasty (~2013) Hx of hernia repair (~2015) Hx of tonsillectomy Social History household members: none Smoking Status: Former smoker alcohol intake: current substance use type: does not use Smoking Status: Former smoker alcohol intake frequency: holidays/special occasions only Substance Use Type: does not use Exam <CJ Green - Last Filed: 12/30/21 18:55> Narrative Exam Narrative: Independently reviewed vitals signs and nursing notes. General: Cooperative, comfortable, in no acute distress, well developed and well groomed Head/Neck: Normal visual inspection and supple no lymphadenopathy. Normal facial exam no angioedema Eyes: Pupils equal round and reactive, EOMI, conjunctiva normal, no scleral icterus or injections Nose: External nose normal, nares patent, no rhinorrhea, without purulent drainage Mouth/Throat: uvula midline, moist mucus membranes Cardio: Regular rate and rhythm, no peripheral edema, warm extremities Respiratory: Normal respiratory effort, able to speak in complete sentences w ithout audible wheezing, stridor, or rales. No retractions. GI: Abdomen soft, nontender to palpation x4 quadrants, nondistended, no masses or exquisite tenderness with exam, no flank tenderness MSK: Moves all extremities, neurovascularly intact Skin: Normal capillary refill, no rash Neuro: Normal speech and cognition, normal gait, A&O x3, tone normal, moves all extremities Psych: Mental status is grossly normal, speech is clear, congruent mood, normal affect Initial Vital Signs Initial Vital Signs: Vital Signs Temperature 97.1 F L 12/30/21 12:38 Pulse Rate 90 12/30/21 12:38 Respiratory Rate 15 12/30/21 12:38 Blood Pressure 149/96 H 12/30/21 12:38 Pulse Oximetry 95 12/30/21 12:38 <Rosalinda Licona DO - Last Filed: 12/31/21 06:57> Initial Vital Signs Initial Vital Signs: Vital Signs Temperature 97.1 F L 12/30/21 12:38 Pulse Rate 90 12/30/21 12:38 Respiratory Rate 15 12/30/21 12:38 Blood Pressure 149/96 H 12/30/21 12:38 Pulse Oximetry 95 12/30/21 12:38 Course <CJ Green - Last Filed: 12/30/21 18:55> Orders Ordered: Discontinued Medications Ondansetron HCl (Ondansetron 4 Mg Odt) 4 mg SL NOW ONE Stop: 12/30/21 13:54 Last Admin: 12/30/21 14:16 Dose: 4 mg Documented by: BHARAT Vital Signs Vital signs: Vital Signs - 8 hr 12/30/21 12:38 12/30/21 14:59 Temperature 97.1 F L Pulse Rate 90 89 Respiratory Rate 15 Blood Pressure 149/96 H 136/94 H Pulse Oximetry 95 93 <Rosalinda Licona DO - Last Filed: 12/31/21 06:57> Orders Ordered: Discontinued Medications Ondansetron HCl (Ondansetron 4 Mg Odt) 4 mg SL NOW ONE Stop: 12/30/21 13:54 Last Admin: 12/30/21 14:16 Dose: 4 mg Documented by: BHARAT Vital Signs Vital signs: Vital Signs - 8 hr 12/30/21 12:38 12/30/21 14:59 Temperature 97.1 F L Pulse Rate 90 89 Respiratory Rate 15 Blood Pressure 149/96 H 136/94 H Pulse Oximetry 95 93 MDM - Nausea/Vomiting/Diarrhea <CJ Green - Last Filed: 12/30/21 18:55> MDM Narrative Medical decision making narrative: 71-year-old pleasant gentleman presents to the emergency department 1 day following his COVID booster vaccination with nausea and vomiting which started this morning he vomited at 1:00 p.m. and intermittently since. Patient was given 4 mg ODT Zofran, was able to drink water afterwards without any more emesis. Patient stated that he felt better was ready to go home. Patient did not have any urticaria, shortness of breath, wheezing, chest tightness, angioedema, or any other symptom. Patient was given strict return precautions. And encouraged close follow-up with primary care provider. Differential includes viral illness, gastroenteritis, food-borne illness. Patient is appropriate and amenable to discharge home. Vital signs are stable on repeat examination is unremarkable. Patient has been informed of results. Patient has been given strict return to ER precautions for any new or worsening symptoms. Patient understands to follow up closely with outpatient providers as instructed. Patient understands plan and agrees to discharge home. All questions and concerns answered at this time. Discharge Plan Departure Patient Disposition: Home Clinical Impression: Vaccine reaction Qualifiers: Encounter type: initial encounter Qualified Code(s): T50.Z95A - Adverse effect of other vaccines and biological substances, initial encounter Nausea & vomiting Qualifiers: Vomiting type: unspecified Vomiting Intractability: non-intractable Qualified Code(s): R11.2 - Nausea with vomiting, unspecified Instructions: DI for Vomiting -- Adult Activity Restrictions/Additional Instructions: *You have been diagnosed with nausea vomiting likely related to your COVID vaccination booster. If you feel nauseated, you can take 1 tab of Zofran every 8 hours as needed. You may take another tab before then today if your nausea comes back. Please return for any worsening of your symptoms, blood in your stool or your emesis, shortness of breath, swelling of your mouth or lips, wheezing, hives. I hope you feel better soon. *What to do: *Please continue to take your regular medications as directed. [ x] New medication prescriptions sent to your pharmacy: [ [facility]] [ ] New medication written as a paper prescription [ ] No new medications given *Please follow up with your primary care provider in 2-3 days, call for an appointment. Let them know you were seen in the Emergency Department and that we ask that you be seen in follow up. We will electronically transmit a record of today's note if your PCP is in our system *If you do not have a primary care provider please contact the [facility] Resource line at [phone]. They will ask some questions about your medical history and help get you set up with a doctor in the community. *Return to Emergency Department if you should have any new, worsening or concerning symptoms, such as [fever greater than 101F, chills, worsening pain, persistent vomiting or other bothersome symptoms] Prescriptions: New ondansetron 4 mg tablet,disintegrating 4 mg PO Q8HR PRN (Reason: nausea and vomiting) Qty: 10 0RF No Action cyclobenzaprine 10 mg Tablet 10 mg PO BEDTIME 0RF albuterol sulfate 2.5 mg /3 mL (0.083 %) Solution For Nebulization 2.5 mg INHALATION Q4-6H PRN (Reason: Shortness Of Breath) 0RF trazodone 50 mg Tablet 50 mg PO BEDTIME 0RF amlodipine 10 mg Tablet 10 mg PO DAILY 0RF gabapentin 300 mg Capsule 600 mg PO TID 0RF Rx Instructions: 600mg bid, 300mg bedtime allopurinol 300 mg Tablet 300 mg PO DAILY 0RF hydrochlorothiazide 25 mg Tablet 25 mg PO DAILY 0RF albuterol sulfate 90 mcg/actuation Hfa Aerosol Inhaler 2 puff INHALATION Q4-6H PRN (Reason: Shortness Of Breath) 0RF prazosin 2 mg Capsule 2 mg PO BID 0RF mometasone 220 mcg/ actuation (60) Aerosol Powdr Breath Activated 2 inh INHALATION QAM PRN (Reason: Shortness Of Breath) 0RF omeprazole 20 mg Tablet,Delayed Release (Dr/Ec) 20 mg PO DAILY 0RF levothyroxine 75 mcg Capsule 75 mcg PO DAILY 0RF olodaterol 2.5 mcg/actuation Mist 2 inh INHALATION DAILY PRN (Reason: Shortness Of Breath) 0RF testosterone cypionate 200 mg/mL Kit 100 mg IM Q2W 0RF oxycodone 5 mg Tablet 5 mg PO Q3HR PRN (Reason: Pain, Moderate (4-6)) Qty: 40 0RF Referrals: Nils Lott ARNP [Primary Care Provider] - <Rosalinda Licona DO - Last Filed: 12/31/21 06:57> Cosign ED Attending Cosignature Attestation: I was immediately available in the department for consultation. Documentation nagy s been reviewed. I agree with assessment and plan.
[2021-12-30] MEDS: ONDANSETRON 4 MG ODT SL (14:16)
--- NOTE | 2021-12-30 14:25 | PC.NURSE ---
Had second covid booster yesterday morning. Started vomiting 1300, and intermittently since. Zofran given and will do PO challenge.
[2021-12-30 14:59] VITALS: BP 136/94; PULSE 89; O2SAT 93
== END 2021-12-30 14:59 | disposition home or self-care (01) ==
PROVIDERS: Emergency Provider Nurse Practitioner Critical Care Medicine; Family Provider Nurse Practitioner Family; PCP Nurse Practitioner Family
DX: R11.2 Nausea with vomiting, unspecified (principal); T50.B95A Adverse effect of other viral vaccines, initial encounter
CPT/HCPCS: 99283

== ENCOUNTER → 2022-04-19 08:08 | Outpatient (CLI) | payer OTHER, SELFPAY ==
[2019-08-14 18:00] VITALS: BMI 35.7
[2022-04-19 09:18] LABS: BUN Creatinine Ratio 13.1 (6-22); Blood Urea Nitrogen 13 mg/dL (9-20); Estimated Glomerular Filt Rate > 60 mL/min (>60)
== END ==
PROVIDERS: Family Provider Nurse Practitioner Family; PCP Nurse Practitioner Family
DX: Z01.89 Encounter for other specified special examinations (principal)
CPT/HCPCS: 36415; 82565; 84520

== ENCOUNTER → 2022-04-20 11:18 | Outpatient (CLI) | payer OTHER, SELFPAY ==
[2019-08-14 18:00] VITALS: BMI 35.7
--- NOTE | 2022-04-20 12:43 | DI.CT.S_ITS ---
PROCEDURE: CT CHEST ABD PEL W CON INDICATIONS: 6 month follow up of area of concern TECHNIQUE: After the administration of oral and intravenous contrast, axial sections acquired from the supraclavicular neck to the pubic symphysis. Coronal and sagittal reformats were performed. For radiation dose reduction, the following was used: automated exposure control, adjustment of mA and/or kV according to patient size. COMPARISON:[facility], CT, CT CHEST WO CON, 06/07/2018, 9:39. [facility], CT, CT CHEST WO CON, 04/17/2018, 10:38. CT, CT CHEST WO CON, 07/19/2019, 11:47. [facility], CT, CT ABDOMEN PELVIS WITH CONTRAST, 12/07/2019, 10:11. [facility], US, US ABD AORTA ANEURYSM SCREEN, 10/13/2021, 8:59. [facility], CT, CT ABDOMEN PELVIS WITH CONTRAST, 10/21/2020, 12:38. FINDINGS: Image quality: Excellent. CHEST: Lower Neck: No enlarged lymph nodes. Thyroid: Within normal limits. Axillae: Borderline enlarged lymph nodes are present, unchanged. Chest Wall: Unremarkable. Lungs and Airways: There is bronchial wall thickening in the left upper lobe and irregular narrowing of the left upper lobe bronchus. There are subpleural densities in the left upper lobe, likely atelectasis. There is volume loss in left hemithorax. There are multiple lung nodules. Reference nodules are listed in the following: A 0.7 cm irregular nodular density is seen in the left left major fissure (series 3, image 120), unchanged in size. There is a 0.7 cm irregular nodule is present in the right middle lobe along the minor fissure (series 3, image 158), unchanged in size. There is a 0.6 x 0.8 cm irregular nodule in the right lower lobe along the right major fissure (series 3, image 147), unchanged in size. There is a 3 mm nodule in the right upper lobe posteriorly (series 3, image 85), slightly enlarged (previously 2 mm on 07/19/2019). Pleura: No pneumothorax or pleural effusions. Heart: Heart size is normal. No pericardial effusion. Thoracic Vessels: The aorta and pulmonary arteries demonstrate normal size. Mediastinum and Jazmine: There is a 1.1 x 1.6 cm precarinal lymph node, unchanged in size. Borderline sized subcarinal lymph node measures 0.9 x 1.2 cm and appears unchanged. There are enlarged left hilar lymph nodes measuring 1.1 and 1.3 cm. On the prior noncontrast enhanced chest CTs, the hilar lymph nodes are not well seen. Subjectively, the lymph nodes are enlarged. Esophagus: No wall thickening. There is diffuse wall thickening of the distal esophagus. Small hiatal hernia. ABDOMEN: Liver: Normal size. Mild hepatic steatosis. Gallbladder: There are gallstones and gallbladder sludge Biliary ducts: Unremarkable. Pancreas: Unremarkable. Spleen: Unremarkable. Adrenal Glands: Unremarkable. Kidneys and Ureters: Small nonobstructive renal calculi are present bilaterally. Mild bilateral renal cortical thinning. No hydronephrosis. Stomach and Bowel: Stomach, small bowel loops, and colon are normal in caliber. Mild diverticulosis without diverticulitis Peritoneum: No abnormal intraperitoneal fluid. No free air. Ventral Wall: No hernia. Abdominal Nodes: There is a 1.7 x 2.2 cm aortocaval lymph node, unchanged in size. A 1.0 x 1.5 periportal lymph node is identified behind the main portal vein, unchanged. Mildly enlarged common and external iliac lymph nodes are seen bilaterally measuring up to 1.1 cm, also stable. Vessels: Aorta and inferior vena cava are normal in size. PELVIS: Pelvic Organs: Unremarkable. Bladder: Unremarkable. Pelvic Nodes: No enlarged lymph nodes. Miscellaneous: No inguinal hernias are seen. Bones: Scoliosis. Moderate chronic compression fracture of T12. Severe degenerative changes in thoracic and lumbar spine. Note is made of left shoulder prosthesis and left hip prosthesis IMPRESSION: 1. There is wall thickening and irregular narrowing of the left upper lobe bronchus with associated atelectasis and volume loss. Cannot rule out endobronchial mass. Recommend bronchoscopy for follow-up evaluation. 2. There is left hilar lymphadenopathy. The prior comparison chest CTs were performed without intravenous contrast; therefore, hilar lymph nodes were not well seen. Subjectively, left hilar lymph nodes are enlarged when compared to the last chest CT dated 07/19/2019. 3. Stable mediastinal, retroperitoneal and bilateral iliac lymphadenopathy 4. Bilateral nonobstructive renal calculi. 5. Cholelithiasis. 6. Diverticulosis without diverticulitis. Dictated by: Mayco Lopez M.D. on 04/20/2022 at 14:35 Approved by: Mayco Lopez M.D. on 04/20/2022 at 15:17
== END ==
PROVIDERS: Family Provider Nurse Practitioner Family; PCP Nurse Practitioner Family; Referring Provider Internal Medicine
DX: R91.8 Other nonspecific abnormal finding of lung field (principal); J98.11 Atelectasis; N20.0 Calculus of kidney; Z01.89 Encounter for other specified special examinations; K76.0 Fatty (change of) liver, not elsewhere classified; K80.20 Calculus of gallbladder without cholecystitis without obstruction; K57.90 Diverticulosis of intestine, part unspecified, without perforation or abscess without bleeding; R59.1 Generalized enlarged lymph nodes
CPT/HCPCS: 71260; 74177

== ENCOUNTER 2022-06-29 11:58 | Emergency (ER) | payer OTHER, SELFPAY ==
[2019-08-14 18:00] VITALS: BMI 35.7
[2022-06-29 12:04] VITALS: BP 130/86; PULSE 105; RESP 16; TEMP 36.1; O2SAT 96; BMI 35.2
--- NOTE | 2022-06-29 12:12 | DI.RAD.S_ITS ---
PROCEDURE: XR HAND LT MIN 3V INDICATIONS: pain,redness and swelling TECHNIQUE: 3 views of the hand(s) acquired. COMPARISON: None. FINDINGS: Bones: No acute fracture or dislocation. There is diffuse interphalangeal joint space narrowing. Severe degenerative changes are present at the 1st CMC joint and the triscaphe joint. Severe degenerative changes are present at the radiocarpal joint. Bony erosions cannot be excluded but are difficult to characterize given degenerative changes. Soft tissues: No suspicious soft tissue calcifications. IMPRESSION: Severe osteoarthritic changes. Bony erosions cannot be excluded given degenerative change. However, no discrete periarticular osteopenia or bony erosions are visualized. Dictated by: Madhavi Dooley M.D. on 06/29/2022 at 13:23 Approved by: Madhavi Dooley M.D. on 06/29/2022 at 13:24
--- NOTE | 2022-06-29 12:12 | DI.RAD.S_ITS ---
PROCEDURE: XR WRIST LT MIN 3V INDICATIONS: pain,redness and swelling TECHNIQUE: 3 views of the wrist were acquired. COMPARISON: None. FINDINGS: Bones: No acute fracture or dislocation. Severe degenerative changes are present at the 1st CMC joint and moderate degenerative changes are present at the triscaphe joint and radiocarpal joint. Soft tissues: Soft tissue calcifications are present near the radial styloid. IMPRESSION: Findings suspicious for severe osteoarthritis, although gouty arthritis could be considered in the differential. Dictated by: Madhavi Dooley M.D. on 06/29/2022 at 13:24 Approved by: Madhavi Dooley M.D. on 06/29/2022 at 13:25
--- NOTE | 2022-06-29 12:14 | PC.NURSE ---
Pt has hx gout. Pt having left wrist/hand pain,redness and swelling.
--- NOTE | 2022-06-29 14:38 | ED_ITS ---
HPI - Extremity Problem <Johnna Yo PA-C - Last Filed: 06/29/22 14:46> General Chief complaint: Extremity Problem,Nontraumatic Stated complaint: States glout flare up in wrist- meds not helping Time Seen by Provider: 06/29/22 12:46 Source: patient Mode of arrival: Ambulatory History of Present Illness HPI Narrative: 72-year-old male with past medical history gout presents to the ED with 5 days of bilateral shoulder, hip pain patient also endorses pain in the left wrist. Patient denies trauma. Patient states that he had some beer last week and seafood, which she suspects triggered his acute gout flare. Patient took 3 pills of colchicine, his symptoms improved in the hips and shoulders, however his wrist still continues to be painful. Patient endorses pain with movement, touch. Patient denies numbness, tingling, weakness. Patient denies fever, chills, chest pain, shortness of breath, nausea, vomiting, abdominal pain. Related Data Home Medications Medication Instructions Recorded Confirmed albuterol sulfate 2.5 mg/3 mL 2.5 mg inhalation Q4-6H PRN 08/09/19 08/14/19 (0.083 %) solution for nebulization Shortness Of Breath albuterol sulfate 90 mcg/actuation 2 puff inhalation Q4-6H PRN 08/09/19 08/14/19 aerosol inhaler Shortness Of Breath allopurinol 300 mg tablet 300 mg PO DAILY 08/09/19 08/14/19 amlodipine 10 mg tablet 10 mg PO DAILY 08/09/19 08/14/19 cyclobenzaprine 10 mg tablet 10 mg PO BEDTIME 08/09/19 08/14/19 gabapentin 300 mg capsule 600 mg PO TID 08/09/19 08/14/19 hydrochlorothiazide 25 mg tablet 25 mg PO DAILY 08/09/19 08/14/19 levothyroxine 75 mcg capsule 75 mcg PO DAILY 08/09/19 08/14/19 mometasone 220 mcg/actuation(60 2 inh inhalation QAM PRN Shortness 08/09/19 08/14/19 doses) breath activated powder Of Breath inhaler olodaterol 2.5 mcg/actuation mist 2 inh inhalation DAILY PRN 08/09/19 08/14/19 for inhalation Shortness Of Breath omeprazole 20 mg tablet,delayed 20 mg PO DAILY 08/09/19 08/14/19 release prazosin 2 mg capsule 2 mg PO BID 08/09/19 08/14/19 testosterone cypionate 200 mg/mL 100 mg IM Q2W 08/09/19 08/14/19 intramuscular kit trazodone 50 mg tablet 50 mg PO BEDTIME 08/09/19 08/14/19 Previous Rx's Medication Instructions Recorded oxycodone 5 mg tablet 5 mg PO Q3HR PRN Pain, Moderate 08/15/19 (4-6) #40 tabs ondansetron 4 mg disintegrating 4 mg PO Q8HR PRN nausea and 12/30/21 tablet vomiting #10 tabs prednisone 5 mg tablets in a dose See Rx Instructions PO .COMPLEX 06/29/22 pack #48 ea indomethacin 50 mg capsule 50 mg PO TID #10 caps 07/16/22 hydrocodone 5 mg-acetaminophen 325 1 tab PO BEDTIME PRN pain #10 tabs 07/29/22 mg tablet Allergies Allergy/AdvReac Type Severity Reaction Status Date / Time clindamycin Allergy Severe Rash Verified 07/29/22 08:51 diphenhydramine Allergy Intermediate Hives Verified 07/29/22 08:51 lisinopril AdvReac Severe Cough Verified 07/29/22 08:51 Review of Systems <Johnna Yo PA-C - Last Filed: 06/29/22 14:46> Review of Systems ROS Unobtainable: All systems reviewed & are unremarkable except as noted in HPI and below Constitutional Constitutional: Denies chills, Denies fatigue, Denies fever(s), Denies frequent falls, Denies lethargy and Denies weakness Eyes Eyes: Denies change in vision, Denies eye discharge, Denies irritation and Denies loss of vision ENT Ears, Nose, Mouth, and Throat: Denies change in voice, Denies dizziness, Denies neck pain, Denies sore throat and Denies throat swelling Cardiovascular Cardiovascular: Denies chest pain, Denies irregular heart rhythm, Denies lightheadedness, Denies palpitations, Denies dyspnea, Denies dyspnea on exertion and Denies orthopnea Respiratory Respiratory: Denies cough, Denies dyspnea, Denies dyspnea on exertion and Denies wheezing Gastrointestinal Gastrointestinal: Denies abdominal pain, Denies change in bowel habits, Denies diarrhea, Denies nausea and Denies vomiting Genitourinary Genitourinary: Denies hematuria, Denies flank pain, Denies urinary incontinence and Denies urinary urgency Musculoskeletal Musculoskeletal: Denies back pain, Denies muscle weakness, Denies neck pain, Denies numbness and Denies tingling Comments: Bilateral shoulder pain, bilateral hip pain, left wrist pain Integumentary/Breasts Skin/Breast: Denies pruritus, Denies erythema, Denies rash and Denies wounds Neurologic Neurologic: Denies behavioral changes, Denies confusion, Denies dizziness, Denies frequent falls, Denies loss of vision, Denies numbness, Denies tingling and Denies weakness Psychiatric Psychiatric: Denies anxiety, Denies behavioral changes, Denies confusion, Denies depression, Denies homicidal ideation and Denies suicidal ideation Endocrine Endocrine: Denies fatigue, Denies flushing and Denies palpitations Hematologic/Lymphatic Hematologic/Lymphatic: Denies easy bruising Allergic/Immunologic Allergic/Immunologic: Denies urticaria, Denies throat swelling and Denies wheezing Patient History <Johnna Yo PA-C - Last Filed: 06/29/22 14:46> Medical History (Updated 07/31/22 @ 00:01 by ) Colonic polyp Depression Diverticulosis GERD (gastroesophageal reflux disease) Gout Hearing impaired Hernia HTN (hypertension) Hyperlipidemia Hypothyroid Influenza A (~01/06/19) Osteoarthritis Pituitary adenoma (~2013) Pulmonary nodule Scoliosis Spinal stenosis Surgical History History of colonoscopy History of lumbar laminectomy History of total left hip arthroplasty (~2013) Hx of hernia repair (~2015) Hx of tonsillectomy Social History household members: none Smoking Status: Former smoker alcohol intake: current substance use type: does not use Smoking Status: Former smoker alcohol intake frequency: holidays/special occasions only Substance Use Type: does not use Exam <Johnna Yo PA-C - Last Filed: 06/29/22 14:46> Narrative Exam Narrative: Const General:?cooperative, healthy appearing and comfortable [facility] Head:?normal to inspection Ears:?hearing grossly normal bilaterally Nose:?external nose normal Face and sinus:?normal facial exam and sinuses nontender Mouth:?oral mucosae normal Throat:?posterior oropharynx normal Eyes General:?appearance normal, both eyes and all related structures Neck Neck:?normal visual inspection and no lymphadenopathy noted Resp Effort & Inspection:?normal respiratory effort Auscultation:?clear to auscultation bilaterally Cardio Rate:?regular rate Rhythm:?regular rhythm Musculoskeletal Left wrist is erythematous, exquisitely tender to palpation. Patient expresses pain with movement of the wrist. Full range of motion, however limited by pain. Strength and sensation intact. Patient is neurovascularly intact. Neuro General:?patient alert, patient awake and patient oriented x3 Initial Vital Signs Initial Vital Signs: Vital Signs Temperature 97.0 F L 06/29/22 12:04 Pulse Rate 105 H 06/29/22 12:04 Respiratory Rate 16 06/29/22 12:04 Blood Pressure 130/86 06/29/22 12:04 Pulse Oximetry 96 06/29/22 12:04 Oxygen Delivery Method 06/29/22 12:04 <De Bermudez MD - Last Filed: 08/10/22 08:51> Initial Vital Signs Initial Vital Signs: Vital Signs Temperature 97.0 F L 06/29/22 12:04 Pulse Rate 105 H 06/29/22 12:04 Respiratory Rate 16 06/29/22 12:04 Blood Pressure 130/86 06/29/22 12:04 Pulse Oximetry 96 06/29/22 12:04 Oxygen Delivery Method 06/29/22 12:04 Course <Johnna Yo PA-C - Last Filed: 06/29/22 14:46> Orders Ordered: ED Orders 06/29/22 12:12 XR hand LT min 3V Stat XR wrist LT min 3V Stat Vital Signs Vital signs: Vital Signs - 8 hr 06/29/22 12:04 Temperature 97.0 F L Pulse Rate 105 H Respiratory Rate 16 Blood Pressure 130/86 Pulse Oximetry 96 Oxygen Delivery Method Room Air <De Bermudez MD - Last Filed: 08/10/22 08:51> Orders Ordered: ED Orders 06/29/22 12:12 XR hand LT min 3V Stat XR wrist LT min 3V Stat Vital Signs Vital signs: Vital Signs - 8 hr 06/29/22 12:04 Temperature 97.0 F L Pulse Rate 105 H Respiratory Rate 16 Blood Pressure 130/86 Pulse Oximetry 96 Oxygen Delivery Method Room Air MDM - Extremity (Nontraumatic) <Johnna Yo PA-C - Last Filed: 06/29/22 14:46> Imaging Data Extremity x-ray #1: Radiologist's Impression: PROCEDURE:? XR HAND LT MIN 3V ? INDICATIONS:? pain,redness and swelling ? TECHNIQUE:? 3 views of the hand(s) acquired.? ? COMPARISON:? None. ? FINDINGS:? ? Bones:? No acute fracture or dislocation.? There is diffuse interphalangeal joint space narrowing.? Severe degenerative changes are present at the 1st CMC joint and the triscaphe joint.? Severe degenerative changes are present at the radiocarpal joint.? Bony erosions cannot be excluded but are difficult to characterize given degenerative changes. ? Soft tissues:? No suspicious soft tissue calcifications.? ? ? IMPRESSION:? Severe osteoarthritic changes.? Bony erosions cannot be excluded given degenerative change.? However, no discrete periarticular osteopenia or bony erosions are visualized. ? ? Dictated by: Madhavi Dooley M.D. on 06/29/2022 at 13:23 ? ? Approved by: Madhavi Dooley M.D. on 06/29/2022 at 13:24 ? Extremity x-ray #2: Radiologist's Impression: PROCEDURE:? XR WRIST LT MIN 3V ? INDICATIONS: pain,redness and swelling ? TECHNIQUE:? 3 views of the wrist were acquired.? ? COMPARISON:? None. ? FINDINGS:? ? Bones:? No acute fracture or dislocation.? Severe degenerative changes are present at the 1st CMC joint and moderate degenerative changes are present at the triscaphe joint and radiocarpal joint. ? Soft tissues:? Soft tissue calcifications are present near the radial styloid. ? IMPRESSION:? Findings suspicious for severe osteoarthritis, although gouty arthritis could be considered in the differential. ? MDM Narrative Medical decision making narrative: 72-year-old male with past medical history gout presents to the ED with 5 days of bilateral shoulder, hip pain patient also endorses pain in the left wrist. Concern for acute gout flare versus osteoarthritis versus other. X-rays negative for fracture/dislocation. Will prescribe prednisone. Recommend ibuprofen or Aleve for the next 5-7 days. ED return precautions discussed with patient. Patient verbalizes understanding. Patient agrees to follow-up with his PCP. Discharge Plan Departure Patient Disposition: Home Clinical Impression: Gout Instructions: DI for Gout Activity Restrictions/Additional Instructions: You were evaluated in the ED today for wrist, shoulder, hip pain. Your symptoms are consistent with a gout flare up. You have been prescribed prednisone. You may also take naproxen 500 mg twice a day for 7 days or ibuprofen 800 mg 3 times a day for 5 days. Return to the ED if your symptoms worsen, you experience fever, chills, nausea, vomiting. Please follow-up with your PCP in 2 days. Prescriptions: New prednisone 5 mg tablets,dose pack See Rx Instructions .ROUTE .COMPLEX Qty: 48 0RF Rx Instructions: orally per package directions No Action indomethacin 50 mg capsule 50 mg PO TID Qty: 10 0RF Rx Instructions: administer with food or milk hydrocodone-acetaminophen 5-325 mg tablet 1 tab PO BEDTIME PRN (Reason: pain) Qty: 10 0RF cyclobenzaprine 10 mg Tablet 10 mg PO BEDTIME albuterol sulfate 2.5 mg /3 mL (0.083 %) Solution For Nebulization 2.5 mg INHALATION Q4-6H PRN (Reason: Shortness Of Breath) trazodone 50 mg Tablet 50 mg PO BEDTIME amlodipine 10 mg Tablet 10 mg PO DAILY gabapentin 300 mg Capsule 600 mg PO TID Rx Instructions: 600mg bid, 300mg bedtime allopurinol 300 mg Tablet 300 mg PO DAILY hydrochlorothiazide 25 mg Tablet 25 mg PO DAILY albuterol sulfate 90 mcg/actuation Hfa Aerosol Inhaler 2 puff INHALATION Q4-6H PRN (Reason: Shortness Of Breath) prazosin 2 mg Capsule 2 mg PO BID mometasone 220 mcg/ actuation (60) Aerosol Powdr Breath Activated 2 inh INHALATION QAM PRN (Reason: Shortness Of Breath) omeprazole 20 mg Tablet,Delayed Release (Dr/Ec) 20 mg PO DAILY levothyroxine 75 mcg Capsule 75 mcg PO DAILY olodaterol 2.5 mcg/actuation Mist 2 inh INHALATION DAILY PRN (Reason: Shortness Of Breath) testosterone cypionate 200 mg/mL Kit 100 mg IM Q2W oxycodone 5 mg Tablet 5 mg PO Q3HR PRN (Reason: Pain, Moderate (4-6)) Qty: 40 0RF ondansetron 4 mg tablet,disintegrating 4 mg PO Q8HR PRN (Reason: nausea and vomiting) Qty: 10 0RF Referrals: Nils Lott ARNP [Primary Care Provider] - Visit Report Forms: Patient Portal/API <De Bermudez MD - Last Filed: 08/10/22 08:51> Cosign ED Attending Sherif Attestation: I was immediately available for consultation of this patient was seen and evaluated by the APC in the department.
[2022-06-29 14:49] VITALS: BP 123/81; PULSE 90; TEMP 36.3; O2SAT 95
== END 2022-06-29 14:57 | disposition home or self-care (01) ==
PROVIDERS: Emergency Provider Student in an Organized Health Care Education/Training Program; Family Provider Nurse Practitioner Family; PCP Nurse Practitioner Family
DX: M1A.9XX0 Chronic gout, unspecified, without tophus (tophi) (principal)
CPT/HCPCS: 73110; 73130; 99281; 99283

== ENCOUNTER 2022-07-16 08:00 | Emergency (ER) | payer OTHER, SELFPAY ==
[2019-08-14 18:00] VITALS: BMI 35.7
[2022-07-16] VITALS (11 sets, daily range): BP systolic 116–136; BP diastolic 67–79; PULSE 65–105; RESP 14–18; TEMP 37.1; O2SAT 93–97; BMI 36.5
--- NOTE | 2022-07-16 08:21 | DI.RAD.S_ITS ---
PROCEDURE: XR WRIST LT MIN 3V INDICATIONS: Pain/swelling TECHNIQUE: 4 views of the wrist were acquired. COMPARISON: [facility], , XR WRIST LT MIN 3V, 06/29/2022, 12:16. FINDINGS: Bones: Severe degenerative changes are present at the radiocarpal joint and the 1st CMC joint. There is a questionable minimally displaced radial styloid fracture. Small bony erosions of the radiostyloid could also cause this appearance. Scaphoid view: The scaphoid is intact. Soft tissues: No suspicious soft tissue calcifications. IMPRESSION: Severe degenerative changes with questionable small radius styloid fracture or erosive changes. Dictated by: Madhavi Dooley M.D. on 07/16/2022 at 9:03 Approved by: Madhavi Dooley M.D. on 07/16/2022 at 9:05
--- NOTE | 2022-07-16 08:21 | DI.RAD.S_ITS ---
PROCEDURE: XR HAND LT MIN 3V INDICATIONS: Pain/swelling TECHNIQUE: 3 views of the hand(s) acquired. COMPARISON: [facility], CR, XR HAND LT MIN 3V, 06/29/2022, 12:16. FINDINGS: Bones: Severe osteoarthritic changes are redemonstrated at the radiocarpal joint and the 1st CMC joint. There is a questionable minimally displaced radial styloid fracture which is new when compared with the study dated June 29, 2022. However, severe degenerative changes may also cause this appearance. Soft tissues: No suspicious soft tissue calcifications. IMPRESSION: Severe degenerative change. Question minimally displaced small radial styloid fracture. If there is high clinical suspicion for occult fracture, CT of the wrist could be used to further characterize findings given extensive degenerative changes. Dictated by: Madhavi Dooley M.D. on 07/16/2022 at 8:58 Approved by: Madhavi Dooley M.D. on 07/16/2022 at 9:03
--- NOTE | 2022-07-16 08:23 | ED_ITS ---
HPI - Extremity Injury (Upper) General Chief Complaint: Extremity Injury, Upper Stated Complaint: States gout in left wrist Time Seen by Provider: 07/16/22 08:15 Source: patient Mode of arrival: Ambulatory History of Present Illness HPI narrative: Patient here for continued left wrist pain. Seen here 2 weeks ago for gout flare-up. Was placed on steroid pack. Did take 2 doses of colchicine. Is on allopurinol. Has history of gout. Please see notes from visit here 2 weeks ago. Patient states the swelling in his arm has gone down significantly. Able to make a thread drawer and move better however the pain in the wrist and redness has nev er resolved. No known injury. No fever. Related Data Home Medications Medication Instructions Recorded Confirmed albuterol sulfate 2.5 mg/3 mL 2.5 mg inhalation Q4-6H PRN 08/09/19 08/14/19 (0.083 %) solution for nebulization Shortness Of Breath albuterol sulfate 90 mcg/actuation 2 puff inhalation Q4-6H PRN 08/09/19 08/14/19 aerosol inhaler Shortness Of Breath allopurinol 300 mg tablet 300 mg PO DAILY 08/09/19 08/14/19 amlodipine 10 mg tablet 10 mg PO DAILY 08/09/19 08/14/19 cyclobenzaprine 10 mg tablet 10 mg PO BEDTIME 08/09/19 08/14/19 gabapentin 300 mg capsule 600 mg PO TID 08/09/19 08/14/19 hydrochlorothiazide 25 mg tablet 25 mg PO DAILY 08/09/19 08/14/19 levothyroxine 75 mcg capsule 75 mcg PO DAILY 08/09/19 08/14/19 mometasone 220 mcg/actuation(60 2 inh inhalation QAM PRN Shortness 08/09/19 08/14/19 doses) breath activated powder Of Breath inhaler olodaterol 2.5 mcg/actuation mist 2 inh inhalation DAILY PRN 08/09/19 08/14/19 for inhalation Shortness Of Breath omeprazole 20 mg tablet,delayed 20 mg PO DAILY 08/09/19 08/14/19 release prazosin 2 mg capsule 2 mg PO BID 08/09/19 08/14/19 testosterone cypionate 200 mg/mL 100 mg IM Q2W 08/09/19 08/14/19 intramuscular kit trazodone 50 mg tablet 50 mg PO BEDTIME 08/09/19 08/14/19 Previous Rx's Medication Instructions Recorded oxycodone 5 mg tablet 5 mg PO Q3HR PRN Pain, Moderate 08/15/19 (4-6) #40 tabs ondansetron 4 mg disintegrating 4 mg PO Q8HR PRN nausea and 12/30/21 tablet vomiting #10 tabs prednisone 5 mg tablets in a dose See Rx Instructions PO .COMPLEX 06/29/22 pack #48 ea indomethacin 50 mg capsule 50 mg PO TID #10 caps 07/16/22 Allergies Allergy/AdvReac Type Severity Reaction Status Date / Time clindamycin Allergy Severe Rash Verified 07/16/22 08:07 diphenhydramine Allergy Intermediate Hives Verified 07/16/22 08:07 acetaminophen Allergy Mild Rash on Verified 07/16/22 08:07 arms lisinopril AdvReac Severe Cough Verified 07/16/22 08:07 Review of Systems Review of Systems Narrative: GENERAL: Denies chills, fatigue, malaise, fever, sweats. HEENT: Denies sinus pain, ear pain, sore throat RESPIRATORY: Denies dyspnea, cough CARDIOVASCULAR: Denies chest pain, palpitations GASTROINTESTINAL: Denies nausea, vomiting, abdominal pain : Denies dysuria, frequency, hematuria MUSCULOSKELETAL: Positive for muscle or bony pain SKIN: Denies rash, skin lesions NEUROLOGIC: Denies weakness, numbness ROS Unobtainable: All systems reviewed & are unremarkable except as noted in HPI and below Patient History Medical History (Updated 07/16/22 @ 10:47 by Ricki Summers MD) Colonic polyp Depression Diverticulosis GERD (gastroesophageal reflux disease) Gout Hearing impaired Hernia HTN (hypertension) Hyperlipidemia Hypothyroid Influenza A (~01/06/19) Osteoarthritis Pituitary adenoma (~2013) Pulmonary nodule Scoliosis Spinal stenosis Surgical History History of colonoscopy History of lumbar laminectomy History of total left hip arthroplasty (~2013) Hx of hernia repair (~2015) Hx of tonsillectomy Social History household members: none Smoking Status: Former smoker alcohol intake: current substance use type: does not use Smoking Status: Former smoker alcohol intake frequency: holidays/special occasions only Substance Use Type: does not use Exam Narrative Exam Narrative: GENERAL: in no distress, not toxic not dyspneic HEAD: Normocephalic. EYES: Pupils equal round No scleral icterus. EXTREMITIES: No gross deformities. Examination left upper extremity. Nontender shoulder and elbow. There is tenderness diffusely circumferential around the left wrist. There is surrounding circumferential erythema edema. Limited range of motion of the wrist due to pain. Light touch intact to thumb and fingers. Able to make a thread drawer. No gross deformity of the wrist. No palpable fluctuance. There is erythema largely on the volar aspect with slight proximal radiation. Extends about 8 cm proximally. Skin otherwise intact. No induration. NEURO: AOx4. SKIN: Warm and dry PSYCH: Not anxious, is cooperative Initial Vital Signs Initial Vital Signs: Vital Signs Temperature 98.8 F 07/16/22 08:04 Pulse Rate 105 H 07/16/22 08:04 Respiratory Rate 18 07/16/22 08:04 Blood Pressure 136/79 07/16/22 08:04 Pulse Oximetry 95 07/16/22 08:04 Oxygen Delivery Method 07/16/22 08:04 Procedures Orthopedic Splinting/Casting Injury #1: Time of procedure: 10:44 Side: left Upper Extremity Injury Location: wrist Upper Extremity Immobilizer: wrist splint Post splinting neuro exam: intact Post splinting vascular exam: intact Placed by: Nursing (chemical production technician) Course Orders Ordered: Discontinued Medications Ketorolac Tromethamine (Ketorolac 30 Mg/Ml Vial) 15 mg IV NOW ONE Stop: 07/16/22 08:23 Last Admin: 07/16/22 08:45 Dose: 15 mg Documented By: BT Reevaluation(s) Reevaluation #1: Updated patient imaging CT scan results. Likely worsening of arthritis. At t his time likely not infection. He agrees with trying indomethacin for pain/anti-inflammatory. He has tolerated Velcro splint very well. Of the left wrist with thumb spica. He states he feels much better. Time: 10:44 Consultations Consultation #1: Spoke with Dr. Perry, orthopedics, agrees workup with blood work and CT scan/imaging. Can follow up in his office for further management. Time: 09:45 Vital Signs Vital signs: Vital Signs - 8 hr 07/16/22 08:04 07/16/22 08:05 07/16/22 08:05 Temperature 98.8 F Pulse Rate 105 H 98 H Respiratory Rate 18 14 Blood Pressure 136/79 136/79 Pulse Oximetry 95 95 Oxygen Delivery Method Room Air Room Air 07/16/22 08:18 07/16/22 08:30 07/16/22 08:48 Temperature Pulse Rate 88 85 Respiratory Rate Blood Pressure 135/77 Pulse Oximetry 94 97 Oxygen Delivery Method 07/16/22 09:00 07/16/22 09:00 07/16/22 09:31 Temperature Pulse Rate 78 83 Respiratory Rate Blood Pressure 127/68 Pulse Oximetry 95 94 Oxygen Delivery Method 07/16/22 10:00 07/16/22 10:30 Temperature Pulse Rate 70 65 Respiratory Rate Blood Pressure Pulse Oximetry 94 94 Oxygen Delivery Method MDM - Extremity Injury (Upper) Lab Data Result diagrams: 07/16/22 10:15 07/16/22 10:15 Labs: Lab Results 07/16/22 07/16/22 Range/Units 10:15 10:15 WBC 8.0 (4.5-11.0) X10^3/uL RBC 4.32 L (4.5-5.9) X10^6/uL Hgb 12.9 L (13.5-17.5) g/dL Hct 37.7 L (41-53) % MCV 87.3 (80-100) fL MCH 29.8 (26-34) PG MCHC 34.1 (30-36) % RDW 15.7 H (11.6-14.8) % Plt Count 131 L (150-400) X10^3/uL Neut % (Auto) 68.6 (50-75) % Lymph % (Auto) 20.3 L (25-40) % [place] % (Auto) 7.5 (3-14) % Eos % (Auto) 2.8 (2-4) % Baso % (Auto) 0.8 (0-2) % Neut # (Auto) 5400 (8688-6371) /uL Lymph # (Auto) 1600 (1923-4537) /uL [place] # (Auto) 600 (0-900) /uL Eos # (Auto) 200 (0-450) /uL Baso # (Auto) 100 (0-100) /uL ESR 45 H (0-15) MM/HR Sodium 137 (137-145) mmol/L Potassium 3.8 (3.4-5.1) mmol/L Chloride 99 (98-107) mmol/L Carbon Dioxide 30 (22-32) mmol/L BUN 8 L (9-20) mg/dL Creatinine 1.01 (0.66-1.25) mg/dL Estimated GFR > 60 (>60) mL/min BUN/Creatinine Ratio 7.9 (6-22) Glucose 103 (80-110) mg/dL Uric Acid 4.4 (3.5-8.5) mg/dL Calcium 10.1 (8.4-10.2) mg/dL Total Bilirubin 0.7 (0.2-1.3) mg/dL AST 26 (17-59) IU/L ALT 22 (<50) IU/L Alkaline Phosphatase 59 (38-126) U/L C-Reactive Protein 2.0 H (<1.0) mg/dL Total Protein 7.2 (6.3-8.2) g/dL Albumin 3.9 (3.5-5.0) g/dL Globulin 3.3 (1.7-4.1) g/dL Albumin/Globulin Ratio 1.2 (1.0-2.8) Imaging Data Extremity x-ray #1: Radiologist's Impression: [address] [address] XRay Report Signed Patient: Weston Gomez MR#: [id number] : 1950 Acct:[id number] Age/Sex: 72 / M Date of Service: 07/16/22 Loc: ED Accession Number: [id number] ?? Procedure: XR hand LT min 3V Ordering Provider: Ricki Summers MD PROCEDURE:? XR HAND LT MIN 3V ? INDICATIONS:? Pain/swelling ? TECHNIQUE:? 3 views of the hand(s) acquired.? ? COMPARISON:? [facility], [facility], XR HAND LT MIN 3V, 06/29/2022, 12:16. ? FINDINGS:? ? Bones:? Severe osteoarthritic changes are redemonstrated at the radiocarpal joint and the 1st CMC joint.? There is a questionable minimally displaced radial styloid fracture which is new when compared with the study dated June 29, 2022. However, severe degenerative changes may also cause this appearance.? ? Soft tissues:? No suspicious soft tissue calcifications.? ? ? IMPRESSION:? Severe degenerative change.? Question minimally displaced small radial styloid fracture.? If there is high clinical suspicion for occult fracture, CT of the wrist could be used to further characterize findings given extensive degenerative changes. ? ? Dictated by: Madhavi Dooley M.D. on 07/16/2022 at 8:58 ? ? Approved by: Madhavi Dooley M.D. on 07/16/2022 at 9:03 ? Extremity x-ray #2: Radiologist's Impression: [address] [address] XRay Report Signed Patient: Weston Gomez MR#: [id number] : 1950 Acct:[id number] Age/Sex: 72 / M Date of Service: 07/16/22 Loc: ED Accession Number: [id number] ?? Procedure: XR wrist LT min 3V Ordering Provider: Ricki Summers MD PROCEDURE:? XR WRIST LT MIN 3V ? INDICATIONS: Pain/swelling ? TECHNIQUE:? 4 views of the wrist were acquired.? ? COMPARISON:? [facility], , XR WRIST LT MIN 3V, 06/29/2022, 12:16. ? FINDINGS:? ? Bones:? Severe degenerative changes are present at the radiocarpal joint and the 1st CMC joint.? There is a questionable minimally displaced radial styloid fracture.? Small bony erosions of the radiostyloid could also cause this appearance. ? Scaphoid view:? The scaphoid is intact. ? Soft tissues:? No suspicious soft tissue calcifications.? ? IMPRESSION:? Severe degenerative changes with questionable small radius styloid fracture or erosive changes. ? ? Dictated by: Madhavi Dooley M.D. on 07/16/2022 at 9:03 ? ? Approved by: Madhavi Dooley M.D. on 07/16/2022 at 9:05 ? Extremity x-ray #3: Radiologist's Impression: [address] [address] [address] Scan Report Signed Patient: Weston Gomez MR#: [id number] : 1950 Acct:[id number] Age/Sex: 72 / M Date of Service: 07/16/22 Loc: ED Accession Number: [id number] ?? Procedure: CT UE LT wo con Ordering Provider: Ricki Summers MD PROCEDURE:? CT UE LT WO CON ? INDICATIONS:? Pain/swelling/left wrist ? TECHNIQUE:? Noncontrast 1 mm axial sections acquired through the carpal bones, with coronal and sagittal reformats. ? ? COMPARISON:? [facility], CR, XR HAND LT MIN 3V, 07/16/2022, 8:21.? [facility], CR, XR HAND LT MIN 3V, 06/29/2022, 12:16.? [facility], CR, XR WRIST LT MIN 3V, 06/29/2022, 12:16.? [facility], CT, CT UE LT WO CON, 06/26/2019, 10:01.? [facility], CR, XR WRIST LT MIN 3V, 07/16/2022, 8:21. ? FINDINGS:? Image quality:? Excellent.? ? Bones:? Extensive degenerative changes are present at the wrist including pro minent radiocarpal narrowing.? Multiple cystic foci are present within the carpal bones as well as visualized portions of the proximal metacarpals.? Areas of cystic change are noted at the distal radius and to a lesser degree the distal ulna.? There are several small punctate areas calcification adjacent to the radial styloid.? However, small areas of calcification are also noted within the areas of cartilage space at the wrist and hand. ? Soft tissues:? No focal masses are identified.? ? IMPRESSION:? ? Extensive degenerative changes at the wrist. ? Multiple cystic foci are present at the wrist as well as carpal bones and metacarpals which appears suggestive of periarticular degenerative cysts.? However, erosion etiology cannot be definitively excluded. ? There is several areas of punctate calcification adjacent to the radial styloid.? While these could represent avulsion injuries, similar foci are present within cartilage spaces at the wrist and could be route service representative of degenerative change.? Recommend correlation point tenderness and interval imaging follow-up with x-ray in 7-10 days for additional evaluation. ? ? Dictated by: Sarah Norton M.D. on 07/16/2022 at 9:37 ? ? Approved by: Sarah Norton M.D. on 07/16/2022 at 9:44 ? MDM Narrative Medical decision making narrative: Appropriate for discharge home. Laboratory studies are reassuring. No fever. White cell count is normal. Inflammatory markers likely due to arthritis. No fluid collection on CT scan. No aspiration of joint indicated this time. Likely not septic joint but rather arthritic changes. And degenerative changes. Return precautions reviewed with patient. Orthopedic follow-up provided. Feels much better with Toradol given here as well as wrist splint. Discharge Plan Departure Patient Disposition: Home Clinical Impression: Acute pain of left wrist Instructions: DI for Gout, DI for Arthritis Activity Restrictions/Additional Instructions: Use wrist splint for comfort. Call provided orthopedic office today for office appointment next week for re-evaluation of wrist pain. Prescription for indomethacin has been provided to help for the pain. Did not use ibuprofen with this medication. You may supplement with Tylenol. Return if worse or for any questions or concerns Prescriptions: New indomethacin 50 mg capsule 50 mg PO TID Qty: 10 0RF Rx Instructions: administer with food or milk No Action cyclobenzaprine 10 mg Tablet 10 mg PO BEDTIME albuterol sulfate 2.5 mg /3 mL (0.083 %) Solution For Nebulization 2.5 mg INHALATION Q4-6H PRN (Reason: Shortness Of Breath) trazodone 50 mg Tablet 50 mg PO BEDTIME amlodipine 10 mg Tablet 10 mg PO DAILY gabapentin 300 mg Capsule 600 mg PO TID Rx Instructions: 600mg bid, 300mg bedtime allopurinol 300 mg Tablet 300 mg PO DAILY hydrochlorothiazide 25 mg Tablet 25 mg PO DAILY albuterol sulfate 90 mcg/actuation Hfa Aerosol Inhaler 2 puff INHALATION Q4-6H PRN (Reason: Shortness Of Breath) prazosin 2 mg Capsule 2 mg PO BID mometasone 220 mcg/ actuation (60) Aerosol Powdr Breath Activated 2 inh INHALATION QAM PRN (Reason: Shortness Of Breath) omeprazole 20 mg Tablet,Delayed Release (Dr/Ec) 20 mg PO DAILY levothyroxine 75 mcg Capsule 75 mcg PO DAILY olodaterol 2.5 mcg/actuation Mist 2 inh INHALATION DAILY PRN (Reason: Shortness Of Breath) testosterone cypionate 200 mg/mL Kit 100 mg IM Q2W oxycodone 5 mg Tablet 5 mg PO Q3HR PRN (Reason: Pain, Moderate (4-6)) Qty: 40 0RF ondansetron 4 mg tablet,disintegrating 4 mg PO Q8HR PRN (Reason: nausea and vomiting) Qty: 10 0RF prednisone 5 mg tablets,dose pack See Rx Instructions .ROUTE .COMPLEX Qty: 48 0RF Rx Instructions: orally per package directions Referrals: Nils Perry MD [Physician] - Nils Lott ARNP [Primary Care Provider] - Visit Report Forms: Patient Portal/API
[2022-07-16] MEDS: KETOROLAC 30 MG/ML VIAL 15 MG IV (08:45)
--- NOTE | 2022-07-16 09:22 | DI.CT.S_ITS ---
PROCEDURE: CT UE LT WO CON INDICATIONS: Pain/swelling/left wrist TECHNIQUE: Noncontrast 1 mm axial sections acquired through the carpal bones, with coronal and sagittal reformats. COMPARISON: [facility], CR, XR HAND LT MIN 3V, 07/16/2022, 8:21. [facility], CR, XR HAND LT MIN 3V, 06/29/2022, 12:16. [facility], CR, XR WRIST LT MIN 3V, 06/29/2022, 12:16. [facility], CT, CT UE LT WO CON, 06/26/2019, 10:01. [facility], CR, XR WRIST LT MIN 3V, 07/16/2022, 8:21. FINDINGS: Image quality: Excellent. Bones: Extensive degenerative changes are present at the wrist including prominent radiocarpal narrowing. Multiple cystic foci are present within the carpal bones as well as visualized portions of the proximal metacarpals. Areas of cystic change are noted at the distal radius and to a lesser degree the distal ulna. There are several small punctate areas calcification adjacent to the radial styloid. However, small areas of calcification are also noted within the areas of cartilage space at the wrist and hand. Soft tissues: No focal masses are identified. IMPRESSION: Extensive degenerative changes at the wrist. Multiple cystic foci are present at the wrist as well as carpal bones and metacarpals which appears suggestive of periarticular degenerative cysts. However, erosion etiology cannot be definitively excluded. There is several areas of punctate calcification adjacent to the radial styloid. While these could represent avulsion injuries, similar foci are present within cartilage spaces at the wrist and could be public utilities sales representative of degenerative change. Recommend correlation point tenderness and interval imaging follow-up with x-ray in 7-10 days for additional evaluation. Dictated by: Sarah Norton M.D. on 07/16/2022 at 9:37 Approved by: Sarah Norton M.D. on 07/16/2022 at 9:44
[2022-07-16 10:39] LABS: Add Manual Diff / Slide Review NO; Basophils Absolute Auto 100 /uL (0-100); Basophils Percent Auto 0.8 % (0-2); Eosinophils Absolute Auto 200 /uL (0-450); Eosinophils Percent Auto 2.8 % (2-4); Hematocrit 37.7 % (41-53); Hemoglobin 12.9 g/dL (13.5-17.5); Lymphocytes Absolute Auto 1600 /uL (1100-4500); Lymphocytes Percent Auto 20.3 % (25-40); Mean Corpuscular HGB Conc 34.1 % (30-36); Mean Corpuscular Hemoglobin 29.8 PG (26-34); Mean Corpuscular Volume 87.3 fL (80-100); Monocytes Absolute Auto 600 /uL (0-900); Monocytes Percent Auto 7.5 % (3-14); Neutrophils Absolute Auto 5400 /uL (1500-7000); Neutrophils Percent Auto 68.6 % (50-75); Platelet Count 131 X10^3/uL (150-400); Red Blood Cell Count 4.32 X10^6/uL (4.5-5.9); Red Cell Distribution Width 15.7 % (11.6-14.8)
[2022-07-16 10:54] LABS: Alanine Aminotransferase 22 IU/L (<50); Albumin 3.9 g/dL (3.5-5.0); Albumin Globulin Ratio 1.2 (1.0-2.8); Alkaline Phosphatase 59 U/L (38-126); Aspartate Aminotransferase 26 IU/L (17-59); BUN Creatinine Ratio 7.9 (6-22); Bilirubin Total 0.7 mg/dL (0.2-1.3); Blood Urea Nitrogen 8 mg/dL (9-20); Calcium 10.1 mg/dL (8.4-10.2); Carbon Dioxide 30 mmol/L (22-32); Chloride 99 mmol/L (98-107); Estimated Glomerular Filt Rate > 60 mL/min (>60); Globulin 3.3 g/dL (1.7-4.1); Glucose 103 mg/dL (80-110); Potassium 3.8 mmol/L (3.4-5.1); Sodium 137 mmol/L (137-145); Total Protein 7.2 g/dL (6.3-8.2); Uric Acid 4.4 mg/dL (3.5-8.5)
[2022-07-16 10:57] LABS: HEMOLYSIS 52 (0-50)
[2022-07-16 10:59] LABS: Erythrocyte Sedimentation Rate 45 MM/HR (0-15)
--- NOTE | 2022-07-16 11:10 | PC.NURSE ---
pt did not iv access, at the time of medication, asked dr lui if toradol order can change to IM, he OK'd. Toradol 15mg IM rt deltoid.
== END 2022-07-16 11:21 | disposition home or self-care (01) ==
PROVIDERS: Emergency Provider Emergency Medicine; Family Provider Nurse Practitioner Family; PCP Nurse Practitioner Family
DX: M25.532 Pain in left wrist (principal)
CPT/HCPCS: 36415; 73110; 73130; 73200; 80053; 84550; 85025; 85651; 86140; 96374; 99284; J1885

== ENCOUNTER 2022-07-29 08:41 | Emergency (ER) | payer OTHER, SELFPAY ==
[2019-08-14 18:00] VITALS: BMI 35.7
[2022-07-29 08:49] VITALS: BP 145/80; PULSE 95; RESP 18; TEMP 36.7; O2SAT 97; BMI 34.4
--- NOTE | 2022-07-29 09:08 | DI.RAD.S_ITS ---
PROCEDURE: XR WRIST LT MIN 3V INDICATIONS: Pain/swelling TECHNIQUE: 4 views of the wrist were acquired. COMPARISON: [facility], CR, XR WRIST LT MIN 3V, 07/16/2022, 8:21. FINDINGS: Bones: No fractures or dislocations. No suspicious bony lesions. Scapholunate dissociation. Radiocarpal joint degenerative change. Severe degenerative change at the base of the thumb. Scaphoid view: The scaphoid waist is thinner than previously, and possibly slightly more dense, suggesting possible avascular necrosis. There is marked widening of the scapholunate distance, consistent with chronic scapholunate dissociation. Soft tissues: No suspicious soft tissue calcifications. IMPRESSION: Question avascular necrosis of the scaphoid. Scapholunate dissociation. Degenerative change. Dictated by: Deepak Couch M.D. on 07/29/2022 at 9:25 Approved by: Deepak Couch M.D. on 07/29/2022 at 9:26
--- NOTE | 2022-07-29 09:10 | ED_ITS ---
HPI - Extremity Problem General Chief complaint: Extremity Problem,Nontraumatic Stated complaint: Left wrist injury Time Seen by Provider: 07/29/22 08:56 Source: patient Mode of arrival: Ambulatory History of Present Illness HPI Narrative: Patient returns for continued pain to the left wrist for the past 1 month. No injury known. Patient seen here 1 month ago on June 29 for the same complaint. Was placed on steroid pack. Did have colchicine for treatment of gout. X-rays were done. Patient seen by me July 16, 2022 with the same complaint. Had CT scan of the wrist as well. Please see report below. [facility] since seeing me and placed on steroid pack again., he states it did help but after completing the steroid pack pain returned. He currently has referral out for the orthopedic provider I gave him on his visit here last time. Patient states it is listed Benadryl and Tylenol as allergies, causing rash. States he was in the hospital 1 time and he was given both and developed a rash. However he states he is had Tylenol since then and no rash. He does agree to have Tylenol removed off as allergy. He did drive here. He does agree to try Tylenol here. Related Data Home Medications Medication Instructions Recorded Confirmed albuterol sulfate 2.5 mg/3 mL 2.5 mg inhalation Q4-6H PRN 08/09/19 08/14/19 (0.083 %) solution for nebulization Shortness Of Breath albuterol sulfate 90 mcg/actuation 2 puff inhalation Q4-6H PRN 08/09/19 08/14/19 aerosol inhaler Shortness Of Breath allopurinol 300 mg tablet 300 mg PO DAILY 08/09/19 08/14/19 amlodipine 10 mg tablet 10 mg PO DAILY 08/09/19 08/14/19 cyclobenzaprine 10 mg tablet 10 mg PO BEDTIME 08/09/19 08/14/19 gabapentin 300 mg capsule 600 mg PO TID 08/09/19 08/14/19 hydrochlorothiazide 25 mg tablet 25 mg PO DAILY 08/09/19 08/14/19 levothyroxine 75 mcg capsule 75 mcg PO DAILY 08/09/19 08/14/19 mometasone 220 mcg/actuation(60 2 inh inhalation QAM PRN Shortness 08/09/19 08/14/19 doses) breath activated powder Of Breath inhaler olodaterol 2.5 mcg/actuation mist 2 inh inhalation DAILY PRN 08/09/19 08/14/19 for inhalation Shortness Of Breath omeprazole 20 mg tablet,delayed 20 mg PO DAILY 08/09/19 08/14/19 release prazosin 2 mg capsule 2 mg PO BID 08/09/19 08/14/19 testosterone cypionate 200 mg/mL 100 mg IM Q2W 08/09/19 08/14/19 intramuscular kit trazodone 50 mg tablet 50 mg PO BEDTIME 08/09/19 08/14/19 Previous Rx's Medication Instructions Recorded oxycodone 5 mg tablet 5 mg PO Q3HR PRN Pain, Moderate 08/15/19 (4-6) #40 tabs ondansetron 4 mg disintegrating 4 mg PO Q8HR PRN nausea and 12/30/21 tablet vomiting #10 tabs prednisone 5 mg tablets in a dose See Rx Instructions PO .COMPLEX 06/29/22 pack #48 ea indomethacin 50 mg capsule 50 mg PO TID #10 caps 07/16/22 hydrocodone 5 mg-acetaminophen 325 1 tab PO BEDTIME PRN pain #10 tabs 07/29/22 mg tablet Allergies Allergy/AdvReac Type Severity Reaction Status Date / Time clindamycin Allergy Severe Rash Verified 07/29/22 08:51 diphenhydramine Allergy Intermediate Hives Verified 07/29/22 08:51 lisinopril AdvReac Severe Cough Verified 07/29/22 08:51 Review of Systems Review of Systems Narrative: GENERAL: Denies chills, fatigue, malaise, fever, sweats. HEENT: Denies sinus pain, ear pain, sore throat RESPIRATORY: Denies dyspnea, cough CARDIOVASCULAR: Denies chest pain, palpitations GASTROINTESTINAL: Denies nausea, vomiting, abdominal pain : Denies dysuria, frequency, hematuria MUSCULOSKELETAL: Positive muscle or bony pain SKIN: Denies rash, skin lesions NEUROLOGIC: Denies weakness, numbness ROS Unobtainable: All systems reviewed & are unremarkable except as noted in HPI and below Patient History Medical History (Updated 07/29/22 @ 10:00 by Ricki Summers MD) Colonic polyp Depression Diverticulosis GERD (gastroesophageal reflux disease) Gout Hearing impaired Hernia HTN (hypertension) Hyperlipidemia Hypothyroid Influenza A (~01/06/19) Osteoarthritis Pituitary adenoma (~2013) Pulmonary nodule Scoliosis Spinal stenosis Surgical History History of colonoscopy History of lumbar laminectomy History of total left hip arthroplasty (~2013) Hx of hernia repair (~2015) Hx of tonsillectomy Social History household members: none Smoking Status: Former smoker alcohol intake: current substance use type: does not use Smoking Status: Former smoker alcohol intake frequency: holidays/special occasions only Substance Use Type: does not use Exam Narrative Exam Narrative: GENERAL: in no distress, not toxic not dyspneic HEAD: Normocephalic. EYES: Pupils equal round No scleral icterus EXTREMITIES: No gross deformities. Examination left upper extremity. Nontender left elbow. Fingers warm soft and pink brisk cap refills. There is limited range of motion at the left wrist due to pain. No gross deformity. No erythema or induration. Light touch intact to fingers and thumb. Able to over short and damage clerk but has pain. Pain extends distally from the wrist to mostly thumb index and middle finger. BACK: No flank tenderness. NEURO: AOx4. SKIN: Warm and dry PSYCH: Not anxious, is cooperative Initial Vital Signs Initial Vital Signs: Vital Signs Temperature 98.1 F 07/29/22 08:49 Pulse Rate 95 H 07/29/22 08:49 Respiratory Rate 18 07/29/22 08:49 Blood Pressure 145/80 H 07/29/22 08:49 Pulse Oximetry 97 07/29/22 08:49 Oxygen Delivery Method 07/29/22 08:49 Course Course Course Narrative: No new issues during course of stay Orders Ordered: ED Orders 07/29/22 09:08 XR wrist LT min 3V Stat Discontinued Medications Acetaminophen (Acetaminophen 325 Mg Tablet) 500 mg PO NOW ONE Stop: 07/29/22 09:07 Last Admin: 07/29/22 09:16 Dose: Not Given Documented By: VINAYAK Acetaminophen (Acetaminophen 325 Mg Tablet) 650 mg PO NOW ONE Stop: 07/29/22 09:08 Last Admin: 07/29/22 09:16 Dose: 650 mg Documented By: VINAYAK Reevaluation(s) Reevaluation #1: Spoke with patient my conversation with Orthopedics today and x-ray results. He has been trying anti-inflammatory medications and icing the wrist without relief. He does desire opiate pain medication at night to help him sleep. He is not had addiction problems in the past. He understands this is short-term only. He states [facility] just called him while he was here and he is approved for orthopedic referral to see Dr. Perry. Time: 10:03 Consultations Consultation #1: Spoke with radiologist, no urgent MRI needed today. Can be done outpatient. Time: 09:30 Consultation #2: Spoke with orthopedics regarding x-ray today. No MRI indicated today. Continue Velcro wrist thumb spica splint as placed last time here. Follow up with Dr. Perry, orthopedic/hand surgeon. i s/w dr mendoza, orthopedics on-call. Treatment is anti-inflammatory medication, however patient has been on 2 rounds of steroids as well as indomethacin and ibuprofen. Time: 09:58 Vital Signs Vital signs: Vital Signs - 8 hr 07/29/22 08:49 07/29/22 10:04 Temperature 98.1 F Pulse Rate 95 H 80 Respiratory Rate 18 18 Blood Pressure 145/80 H 140/80 Pulse Oximetry 97 98 Oxygen Delivery Method Room Air MDM - Extremity (Nontraumatic) Differential Diagnosis Differential diagnosis: Likely other (Gout/arthritis/fracture/wrist pain/strain) MDM Narrative Medical decision making narrative: Appropriate for discharge home. Exam and imaging otherwise reassuring. I did review with orthopedics today. As well as radiologist. Treatment plan appropriate for outpatient treatment. Patient has been approved for orthopedic referral by primary care. Return precautions reviewed with patient. Patient understands short term nighttime pain medication prescription is only temporary. Patient did not have any rash or side effect to Tylenol. No allergic reaction Discharge Plan Departure Patient Disposition: Home Clinical Impression: Acute pain of left wrist Activity Restrictions/Additional Instructions: Call Dr. Perry office today for appointment regarding your wrist pain. No driving operating machinery when taking prescribed pain medication. May supplement with [id number] ibuprofen. Continue cool ice pack to the wrist 20 minutes at a time as needed for pain and swelling. Continue wrist splint provided to you. Return if worse for any questions or concerns. You will need to schedule MRI of your wrist with family doctor or orthopedic provider. Prescriptions: New hydrocodone-acetaminophen 5-325 mg tablet 1 tab PO BEDTIME PRN (Reason: pain) Qty: 10 0RF No Action indomethacin 50 mg capsule 50 mg PO TID Qty: 10 0RF Rx Instructions: administer with food or milk cyclobenzaprine 10 mg Tablet 10 mg PO BEDTIME albuterol sulfate 2.5 mg /3 mL (0.083 %) Solution For Nebulization 2.5 mg INHALATION Q4-6H PRN (Reason: Shortness Of Breath) trazodone 50 mg Tablet 50 mg PO BEDTIME amlodipine 10 mg Tablet 10 mg PO DAILY gabapentin 300 mg Capsule 600 mg PO TID Rx Instructions: 600mg bid, 300mg bedtime allopurinol 300 mg Tablet 300 mg PO DAILY hydrochlorothiazide 25 mg Tablet 25 mg PO DAILY albuterol sulfate 90 mcg/actuation Hfa Aerosol Inhaler 2 puff INHALATION Q4-6H PRN (Reason: Shortness Of Breath) prazosin 2 mg Capsule 2 mg PO BID mometasone 220 mcg/ actuation (60) Aerosol Powdr Breath Activated 2 inh INHALATION QAM PRN (Reason: Shortness Of Breath) omeprazole 20 mg Tablet,Delayed Release (Dr/Ec) 20 mg PO DAILY levothyroxine 75 mcg Capsule 75 mcg PO DAILY olodaterol 2.5 mcg/actuation Mist 2 inh INHALATION DAILY PRN (Reason: Shortness Of Breath) testosterone cypionate 200 mg/mL Kit 100 mg IM Q2W oxycodone 5 mg Tablet 5 mg PO Q3HR PRN (Reason: Pain, Moderate (4-6)) Qty: 40 0RF ondansetron 4 mg tablet,disintegrating 4 mg PO Q8HR PRN (Reason: nausea and vomiting) Qty: 10 0RF prednisone 5 mg tablets,dose pack See Rx Instructions .ROUTE .COMPLEX Qty: 48 0RF Rx Instructions: orally per package directions Referrals: Nils Perry MD [Physician] - Nils Lott ARNP [Primary Care Provider] - Visit Report Forms: Patient Portal/API
[2022-07-29] MEDS: ACETAMINOPHEN 325 MG TABLET 650 MG PO (09:16)
[2022-07-29 10:04] VITALS: BP 140/80; PULSE 80; RESP 18; O2SAT 98
== END 2022-07-29 10:11 | disposition home or self-care (01) ==
PROVIDERS: Emergency Provider Emergency Medicine; Family Provider Nurse Practitioner Family; PCP Nurse Practitioner Family
DX: M25.532 Pain in left wrist (principal)
CPT/HCPCS: 73110; 99283

== ENCOUNTER → 2022-08-17 10:42 | Outpatient (CLI) | payer OTHER, SELFPAY ==
[2019-08-14 18:00] VITALS: BMI 35.7
--- NOTE | 2022-08-17 | DI.MRI.S_ITS ---
PROCEDURE: MR WRIST LT WO CON INDICATIONS: Pain in left wrist TECHNIQUE: Noncontrast coronal proton density fast spin echo and T2 fast spin echo with fat saturation; coronal 3-D gradient echo, axial T1 spin echo and T2 fast spin echo with fat saturation, sagittal T1 spin echo through the wrist. COMPARISON: [facility], CR, XR WRIST LT MIN 3V, 07/29/2022, 9:08. FINDINGS: Image quality: Excellent. Bones and cartilage: Severe osteoarthritic changes throughout wrist joints are seen most notably involving radiocarpal joints, scaphoid trapezial joint and 1st CMC joint with near complete loss of joint space, extensive subchondral sclerosis and edema and small marginal osteophyte formation. No discrete fracture line is seen. Subcortical T2 hyperintense areas are noted throughout carpal bones , 1st metacarpal base and distal radius. Small to moderate wrist joint effusion is seen, no gross intra-articular loose bodies. No evidence of osteonecrosis. 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 Lunotriquetral ligament is intact. 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 In the absence of intra-articular contrast, the extrinsic carpal ligaments are not well identified. Triangular fibrocartilage complex: The triangular fibrocartilage appears grossly intact. The adjacent meniscal homolog appears normal in the absence of intra-articular contrast. The extensor carpi ulnaris tendon is normal in location and morphology. Tendons and soft tissues: Significant thickened abductor pollicis longus and extensor pollicis brevis tendons at the level of distal radius/radial styloid is seen with intrasubstance T2 hyperintense signal and surrounding edema. The carpal tunnel structures appear normal, including the median nerve. The ulnar nerve appears normal within Guyon's canal. Rest of the extensor tendon compartments demonstrate normal morphology, without pathologic tendon sheath fluid. No soft tissue ganglion cysts. IMPRESSION: 1. Moderate to severe osteoarthritic changes throughout wrist joints particularly along radial aspect of wrist as described above. Subcortical cystic changes and edema throughout carpal bones, distal radius and 1st metacarpal base concerning for erosion secondary to inflammatory arthropathy. Moderate joint effusion, synovitis cannot be excluded. 2. 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 3. Tendinosis and low-grade intrasubstance partial-thickness tear involving 1st extensor compartment at the level of distal radius/radial styloid. 4. Triangular fibrocartilage complex is grossly intact. Dictated by: Zhou Pagan M.D. on 08/17/2022 at 13:18 Approved by: Zhou Pagan M.D. on 08/17/2022 at 13:31
== END ==
PROVIDERS: Family Provider Nurse Practitioner Family; PCP Nurse Practitioner Family; Referring Provider Orthopaedic Surgery; Visit Provider Orthopaedic Surgery
DX: S56.512A Strain of other extensor muscle, fascia and tendon at forearm level, left arm, initial encounter (principal); M25.532 Pain in left wrist; M25.432 Effusion, left wrist
CPT/HCPCS: 73221

== ENCOUNTER → 2022-08-28 13:15 | Outpatient (CLI) | payer OTHER, SELFPAY ==
[2019-08-14 18:00] VITALS: BMI 35.7
--- NOTE | 2022-08-28 13:16 | DI.MRI.S_ITS ---
PROCEDURE: MR LUMBAR SPINE WO CON INDICATIONS: Radiculopathy, lumbar region TECHNIQUE: Noncontrast sagittal T1 spin echo and T2 fast echo, sagittal STIR, and T2 fast spin echo through the lumbar spine. In cases with scoliosis, additional coronal T2 fast spin echo may be performed. COMPARISON: [facility], CT, CT ABDOMEN PELVIS WITH CONTRAST, 10/21/2020, 12:38. [facility], MR, MR LUMBAR SPINE WITH/WITHOUT CONTRAST, 08/25/2020, 13:37. FINDINGS: Image quality: Excellent. Alignment and Curvature: There is prominent leftward scoliotic curvature with apex at L3. Partial L4 pars defect is again noted. Bone Marrow: Marrow is of normal overall signal. No acute vertebral body compression fractures. Spinal Cord: Conus medullaris terminates at the T12-L1 level. Visualized cord demonstrates normal signal and size. Paraspinous Soft Tissues: Previously identified aortocaval lymph node measuring 1.9 x 2.1 cm is unchanged. Discs: Multilevel moderate to severe disc desiccation is present most notable at L1-2, L2-3. L1-L2: Minimal disc bulge without spinal stenosis. Moderate left and mild right foraminal narrowing with facet and ligamentum flavum hypertrophy. No interval change. L2-L3: Mild disc bulge with [id number] spinal stenosis. There is moderate right and [id number] left foraminal narrowing, slightly progressive on the left. There is [id number] compromise of the right lateral recess. L3-L4: Mild disc bulge with moderate spinal stenosis, minimally progressive. Severe right and moderate to severe left foraminal narrowing with slight appearance of nerve root compression of the exiting right L3 nerve roots. Facet and ligamentum flavum hypertrophy are present. L4-L5: Mild disc bulge with mild spinal stenosis. Severe left and minimal to mild right foraminal narrowing with compression of the exiting left L4 nerve roots, unchanged. Facet and ligamentum flavum hypertrophy are present. L5-S1: No disc bulge. Mild spinal stenosis. Moderate left foraminal narrowing, relatively unchanged. IMPRESSION: Prominent scoliotic curvature. Multilevel degenerative changes noting areas of progression as above. Multilevel spinal stenosis remaining most severe at L3-4 secondary to disc bulge with contributing effect of scoliotic curvature as well as facet/ligamentum flavum arthropathy. Multilevel foraminal narrowing remaining most severe at L3-4 and L4-5 predominantly secondary to facet arthropathy with contributing effect of scoliotic curvature. Dictated by: Sarah Norton M.D. on 08/30/2022 at 11:07 Approved by: Sarah Norton M.D. on 08/30/2022 at 11:25
--- NOTE | 2022-08-28 13:17 | DI.CT.S_ITS ---
PROCEDURE: CT PEL WO CON INDICATIONS: Radiculopathy, lumbar region TECHNIQUE: After the administration of oral contrast, 5 mm thick sections acquired from the iliac crests to the symphysis. 5 mm coronal and sagittal reformats were then performed. For radiation dose reduction, the following was used: automated exposure control, adjustment of mA and/or kV according to patient size. COMPARISON: None. FINDINGS: Image quality: Excellent. Peritoneum and bowel: Bowel loops demonstrate normal wall thickness and caliber. No free fluid or air. Genitourinary: Bladder wall thickness is normal. Nodes and vessels: No iliac, pelvic, or inguinal adenopathy by size criteria. Iliac vessels demonstrate normal size. Bones: Total left hip arthroplasty noted in place. Beam hardening artifact limits assessment of several images. Lower lumbar spine degenerative disc disease and arthropathy results in moderate to severe central stenosis L4-5 and L5-S1. Miscellaneous: Bilateral inguinal hernias contain fat without bowel involvement IMPRESSION: 1. No evidence of fracture. Pelvic ring intact. Left total hip arthroplasty in good position. 2. Lower lumbar spine degenerative disc disease and arthropathy results in moderate to severe central stenosis 3. Bilateral inguinal hernias contain fat without bowel involvement Approved by: Rick Krishna M.D. on 08/28/2022 at 14:35
== END ==
PROVIDERS: Family Provider Nurse Practitioner Family; PCP Nurse Practitioner Family; Referring Provider Neurological Surgery; Visit Provider Neurological Surgery
DX: M53.88 Other specified dorsopathies, sacral and sacrococcygeal region (principal); M51.16 Intervertebral disc disorders with radiculopathy, lumbar region; M51.17 Intervertebral disc disorders with radiculopathy, lumbosacral region; M47.26 Other spondylosis with radiculopathy, lumbar region; M47.27 Other spondylosis with radiculopathy, lumbosacral region; K40.20 Bilateral inguinal hernia, without obstruction or gangrene, not specified as recurrent; M48.061 Spinal stenosis, lumbar region without neurogenic claudication; M48.07 Spinal stenosis, lumbosacral region; Z96.642 Presence of left artificial hip joint
CPT/HCPCS: 72148; 72192

== ENCOUNTER → 2022-10-19 12:12 | Outpatient (CLI) | payer OTHER, SELFPAY ==
[2019-08-14 18:00] VITALS: BMI 35.7
--- NOTE | 2022-10-19 12:26 | DI.CT.S_ITS ---
PROCEDURE: CT LUMBAR SPINE WO CON INDICATIONS: SCOLIOSIS TECHNIQUE: Noncontrast 3 mm thick sections acquired from the T12 level to the sacrum. Sagittal and coronal reformats were constructed. For radiation dose reduction, the following was used: automated exposure control. COMPARISON: None. FINDINGS: Image quality: Excellent. Bones: There is normal bony alignment. There is approximately 32? of convex left lumbar spine scoliosis. Chronic appearing T12 and L1 compression deformities. No acute vertebral body compression fractures. No suspicious lytic or blastic bony lesions. No pars defects. T12-L1: Loss of disc height. Mild, diffuse disc bulge. Mild narrowing of the central canal. Moderate bilateral neural foraminal narrowing. No neural compression. L1-L2: Loss of disc height. Mild, diffuse disc bulge. Mild bilateral facet hypertrophy. Mild narrowing of the central canal. Mild bilateral neural foraminal narrowing. No neural compression. L2-L3: Loss of disc height. Mild, diffuse disc bulge. Mild bilateral facet hypertrophy. Mild narrowing of the central canal. Mild bilateral neural foraminal narrowing. No neural compression. L3-L4: Loss of disc height. Vacuum disc phenomenon. Mild bilateral facet hypertrophy. Moderate narrowing of the central canal. Mild bilateral neural foraminal narrowing. No neural compression. L4-L5: Loss of disc height. Vacuum disc phenomenon. Moderate, diffuse disc bulge. Mild right and moderate left facet hypertrophy. Severe narrowing of the central canal. Severe right neural foraminal narrowing with compression of the exiting right L5 nerve root. Mild left neural foraminal narrowing. L5-S1: Loss of disc height. Vacuum disc phenomenon. Moderate, diffuse disc bulge. Moderate bilateral facet hypertrophy. Moderate narrowing of the central canal. Severe left neural foraminal narrowing with compression of the exiting left L5 nerve root. Mild right neural foraminal narrowing. Soft tissues: No retroperitoneal masses or hematomas. Visualized aorta is normal in caliber. 4 millimeter nonobstructing stone in the lower pole of the right kidney. IMPRESSION: Convex left scoliosis. Multilevel degenerative disc disease. Multilevel facet arthropathy. Severe L4-L5 central canal narrowing. Severe right L4-L5 neural foraminal narrowing with compression of the exiting right L4 nerve root. Severe left L5-S1 neural foraminal narrowing with compression of the exiting left L5 nerve root. Dictated by: Summer Aguilar MD, PhD on 10/19/2022 at 14:02 Approved by: Summer Aguilar MD, PhD on 10/19/2022 at 14:17
== END ==
PROVIDERS: Family Provider Nurse Practitioner Family; PCP Nurse Practitioner Family; Referring Provider Neurological Surgery; Visit Provider Neurological Surgery
DX: Z01.812 Encounter for preprocedural laboratory examination (principal); M41.9 Scoliosis, unspecified; Z13.820 Encounter for screening for osteoporosis; M85.851 Other specified disorders of bone density and structure, right thigh; M51.36 Other intervertebral disc degeneration, lumbar region; M51.37 Other intervertebral disc degeneration, lumbosacral region; M47.816 Spondylosis without myelopathy or radiculopathy, lumbar region; M47.817 Spondylosis without myelopathy or radiculopathy, lumbosacral region; M48.061 Spinal stenosis, lumbar region without neurogenic claudication; M48.07 Spinal stenosis, lumbosacral region
CPT/HCPCS: 72131; 77080; 77081

== ENCOUNTER 2023-01-24 18:04 | Emergency (ER) | payer OTHER, SELFPAY ==
[2019-08-14 18:00] VITALS: BMI 35.7
[2023-01-24] VITALS (10 sets, daily range): BP systolic 105–136; BP diastolic 63–86; PULSE 74–95; RESP 16–28; TEMP 36.5; O2SAT 95–98; BMI 34.4
--- NOTE | 2023-01-24 18:29 | DI.RAD.S_ITS ---
PROCEDURE: XR CHEST 1V INDICATIONS: chest pain TECHNIQUE: One view of the chest was acquired. COMPARISON: CT, CT CHEST ABD PEL W CON, 04/20/2022, 12:44. FINDINGS: Surgical changes and devices: None. Lungs and pleura: There is a small left pleural effusion. No acute consolidation. Mediastinum: Mediastinal contours appear normal. Heart size is normal. Bones and chest wall: No suspicious bony lesions. Overlying soft tissues appear unremarkable. IMPRESSION: 1. Small left pleural effusion. Dictated by: Hector Garrison M.D. on 01/24/2023 at 20:28 Approved by: Hector Garrison M.D. on 01/24/2023 at 20:29
[2023-01-24 19:02] LABS: Add Manual Diff / Slide Review NO; Basophils Absolute Auto 0 /uL (0-100); Basophils Percent Auto 0.7 % (0-2); Eosinophils Absolute Auto 100 /uL (0-450); Eosinophils Percent Auto 2.4 % (2-4); Hematocrit 30.3 % (41-53); Lymphocytes Absolute Auto 1400 /uL (1100-4500); Lymphocytes Percent Auto 26.6 % (25-40); Mean Corpuscular Hemoglobin 27.5 PG (26-34); Mean Corpuscular Volume 83.4 fL (80-100); Monocytes Absolute Auto 400 /uL (0-900); Monocytes Percent Auto 6.7 % (3-14); Neutrophils Absolute Auto 3400 /uL (1500-7000); Neutrophils Percent Auto 63.6 % (50-75); Platelet Count 228 X10^3/uL (150-400); Red Blood Cell Count 3.63 X10^6/uL (4.5-5.9); Red Cell Distribution Width 15.5 % (11.6-14.8); White Blood Cell Count 5.4 X10^3/uL (4.5-11.0)
--- NOTE | 2023-01-24 19:06 | ED.GENADULT ---
HPI - General Adult General Chief complaint: Dizziness Stated complaint: low BP 102/80 Time Seen by Provider: 01/24/23 19:01 Source: patient and family Mode of arrival: Wheelchair History of Present Illness HPI narrative: 72M former smoker with history of hypertension, hypothyroid, COPD presents with a chief complaint of low blood pressure over the course of the day and feeling a bit foggy and lightheaded. He denies any fever or chills. He is had no runny nose, sore throat or cough. He denies nausea, vomiting, diarrhea or abdominal pain. He denies any difficulty urinating. He is had no change in his diet. He states that he felt fine yesterday and upon waking today just has not felt right. Related Data Home Medications Medication Instructions Recorded Confirmed albuterol sulfate 2.5 mg/3 mL 2.5 mg inhalation Q4-6H PRN 08/09/19 08/14/19 (0.083 %) solution for nebulization Shortness Of Breath albuterol sulfate 90 mcg/actuation 2 puff inhalation Q4-6H PRN 08/09/19 08/14/19 aerosol inhaler Shortness Of Breath allopurinol 300 mg tablet 300 mg PO DAILY 08/09/19 08/14/19 amlodipine 10 mg tablet 10 mg PO DAILY 08/09/19 08/14/19 cyclobenzaprine 10 mg tablet 10 mg PO BEDTIME 08/09/19 08/14/19 gabapentin 300 mg capsule 600 mg PO TID 08/09/19 08/14/19 hydrochlorothiazide 25 mg tablet 25 mg PO DAILY 08/09/19 08/14/19 levothyroxine 75 mcg capsule 75 mcg PO DAILY 08/09/19 08/14/19 mometasone 220 mcg/actuation(60 2 inh inhalation QAM PRN Shortness 08/09/19 08/14/19 doses) breath activated powder Of Breath inhaler olodaterol 2.5 mcg/actuation mist 2 inh inhalation DAILY PRN 08/09/19 08/14/19 for inhalation Shortness Of Breath omeprazole 20 mg tablet,delayed 20 mg PO DAILY 08/09/19 08/14/19 release prazosin 2 mg capsule 2 mg PO BID 08/09/19 08/14/19 testosterone cypionate 200 mg/mL 100 mg IM Q2W 08/09/19 08/14/19 intramuscular kit trazodone 50 mg tablet 50 mg PO BEDTIME 08/09/19 08/14/19 Previous Rx's Medication Instructions Recorded oxycodone 5 mg tablet 5 mg PO Q3HR PRN Pain, Moderate 08/15/19 (4-6) #40 tabs ondansetron 4 mg disintegrating 4 mg PO Q8HR PRN nausea and 12/30/21 tablet vomiting #10 tabs prednisone 5 mg tablets in a dose See Rx Instructions PO .COMPLEX 06/29/22 pack #48 ea indomethacin 50 mg capsule 50 mg PO TID #10 caps 07/16/22 hydrocodone 5 mg-acetaminophen 325 1 tab PO BEDTIME PRN pain #10 tabs 07/29/22 mg tablet potassium chloride 20 mEq 20 meq PO DAILY #20 tabs 01/24/23 tablet,extended release Allergies Allergy/AdvReac Type Severity Reaction Status Date / Time clindamycin Allergy Severe Rash Verified 01/24/23 19:53 diphenhydramine Allergy Intermediate Hives Verified 01/24/23 19:53 lisinopril AdvReac Severe Cough Verified 01/24/23 19:53 Review of Systems Review of Systems Narrative: GENERAL: See HPI HEENT: Denies sinus pain, ear pain, sore throat, difficulty swallowing, dizziness. RESPIRATORY: Denies dyspnea, cough, wheezing, hemoptysis, sputum. CARDIOVASCULAR: Denies chest pain, palpitations, orthopnea, edema, GASTROINTESTINAL: Denies nausea, vomiting, abdominal pain, diarrhea, constipation, melena. : Denies dysuria, frequency, incontinence, hematuria, urinary retention. MUSCULOSKELETAL: denies weakness, joint pain, or bony pain SKIN: Denies rash, skin lesions, or other NEUROLOGIC: Denies weakness, headache, numbness, change in speech, confusion, seizures, incoordination. PSYCHIATRIC: No concerning psychosocial issues. 12 point review of systems is negative except for those stated above Patient History Medical History (Updated 01/24/23 @ 20:20 by Toni Adamson DO) Colonic polyp Depression Diverticulosis GERD (gastroesophageal reflux disease) Gout Hearing impaired Hernia HTN (hypertension) Hyperlipidemia Hypothyroid Influenza A (~01/06/19) Osteoarthritis Pituitary adenoma (~2013) Pulmonary nodule Scoliosis Spinal stenosis Surgical History History of colonoscopy History of lumbar laminectomy History of total left hip arthroplasty (~2013) Hx of hernia repair (~2016) Hx of tonsillectomy Social History household members: none Smoking Status: Former smoker alcohol intake: current substance use type: does not use Smoking Status: Former smoker alcohol intake frequency: holidays/special occasions only Substance Use Type: does not use Exam Narrative Exam Narrative: GENERAL: [72] year old patient appears stated age. Well-developed patient, in mild distress. HEAD: Atraumatic. Normocephalic. EYES: Pupils equal round and reactive. Extraocular motions intact. No scleral icterus. No injection or drainage. ENT: Dry mucous membranes, Nose without bleeding, purulent drainage. Throat without erythema, tonsillar hypertrophy or exudate. Airway patent. NECK: Trachea midline. Non tender CARDIOVASCULAR: Regular rate and rhythm without murmurs, gallops, or rubs. RESPIRATORY: Clear to auscultation. Breath sounds equal bilaterally. No wheezes, rales, or rhonchi. GASTROINTESTINAL: Abdomen soft, non-tender, nondistended. EXTREMITIES: No edema or joint tenderness. BACK: Nontender without deformity or crepitance. No flank tenderness. NEURO: AOx3. SKIN: Poor skin turgor No rash or erythema of visible areas Initial Vital Signs Initial Vital Signs: Vital Signs Temperature 97.7 F 01/24/23 18:22 Pulse Rate 91 H 01/24/23 18:22 Respiratory Rate 16 01/24/23 18:22 Blood Pressure 105/73 01/24/23 18:22 Pulse Oximetry 96 01/24/23 18:22 Oxygen Delivery Method Room Air 01/24/23 18:22 Course Orders Ordered: Discontinued Medications Aspirin (Aspirin 81 Mg Chew Tab) 324 mg PO NOW ONE Stop: 01/24/23 18:29 Last Admin: 01/24/23 19:21 Dose: Not Given Documented By: ALEC Sodium Chloride (Normal Saline 0.9%) 1,000 mls @ 1,000 mls/hr IV BOLUS ONE Stop: 01/24/23 20:07 Last Admin: 01/24/23 19:21 Dose: 1,000 mls/hr Documented By: ALEC Potassium Chloride (Potassium Chloride 20 Meq/15 Ml Udc) 40 meq PO NOW ONE Stop: 01/24/23 19:34 Last Admin: 01/24/23 19:55 Dose: 40 meq Documented By: TRINY Vital Signs Vital signs: Vital Signs - 8 hr 01/24/23 18:22 Temperature 97.7 F Pulse Rate 91 H Respiratory Rate 16 Blood Pressure 105/73 Pulse Oximetry 96 Oxygen Delivery Method Room Air Medical Decision Making Lab Data 01/24/23 18:50 01/24/23 18:50 Labs: Lab Results 01/24/23 01/24/23 01/24/23 Range/Units 18:50 18:50 18:50 WBC 5.4 (4.5-11.0) X10^3/uL RBC 3.63 L (4.5-5.9) X10^6/uL Hgb 10.0 L (13.5-17.5) g/dL Hct 30.3 L (41-53) % MCV 83.4 (80-100) fL MCH 27.5 (26-34) PG MCHC 33.0 (30-36) % RDW 15.5 H (11.6-14.8) % Plt Count 228 (150-400) X10^3/uL Neut % (Auto) 63.6 (50-75) % Lymph % (Auto) 26.6 (25-40) % [place] % (Auto) 6.7 (3-14) % Eos % (Auto) 2.4 (2-4) % Baso % (Auto) 0.7 (0-2) % Neut # (Auto) 3400 (7033-9080) /uL Lymph # (Auto) 1400 (1095-4120) /uL [place] # (Auto) 400 (0-900) /uL Eos # (Auto) 100 (0-450) /uL Baso # (Auto) 0 (0-100) /uL PT 11.9 (10.1-12.7) SECONDS INR 1.0 (0.9-1.3) APTT 30 (26-36) SECONDS Sodium 136 L (137-145) mmol/L Potassium 3.2 L (3.4-5.1) mmol/L Chloride 98 (98-107) mmol/L Carbon Dioxide 29 (22-32) mmol/L BUN 17 (9-20) mg/dL Creatinine 1.22 (0.66-1.25) mg/dL Estimated GFR > 60 (>60) mL/min BUN/Creatinine Ratio 13.9 (6-22) Glucose 156 H (80-110) mg/dL Calcium 10.0 (8.4-10.2) mg/dL Magnesium 1.8 (1.6-2.3) mg/dL Total Bilirubin 0.5 (0.2-1.3) mg/dL AST 22 (17-59) IU/L ALT 19 (<50) IU/L Alkaline Phosphatase 92 (38-126) U/L Total Creatine Kinase 52 L (55-170) U/L CK-MB (CK-2) TNP CK-MB (CK-2) Rel Index TNP Troponin I < 0.012 (0.01-0.034) ng/mL Total Protein 6.9 (6.3-8.2) g/dL Albumin 3.9 (3.5-5.0) g/dL Globulin 3.0 (1.7-4.1) g/dL Albumin/Globulin Ratio 1.3 (1.0-2.8) Lipase 233 (23-300) U/L SARS-CoV-2 (PCR) (Negative) 01/24/23 Range/Units 18:50 WBC (4.5-11.0) X10^3/uL RBC (4.5-5.9) X10^6/uL Hgb (13.5-17.5) g/dL Hct (41-53) % MCV (80-100) fL MCH (26-34) PG MCHC (30-36) % RDW (11.6-14.8) % Plt Count (150-400) X10^3/uL Neut % (Auto) (50-75) % Lymph % (Auto) (25-40) % [place] % (Auto) (3-14) % Eos % (Auto) (2-4) % Baso % (Auto) (0-2) % Neut # (Auto) (5677-7109) /uL Lymph # (Auto) (7960-8992) /uL [place] # (Auto) (0-900) /uL Eos # (Auto) (0-450) /uL Baso # (Auto) (0-100) /uL PT (10.1-12.7) SECONDS INR (0.9-1.3) APTT (26-36) SECONDS Sodium (137-145) mmol/L Potassium (3.4-5.1) mmol/L Chloride (98-107) mmol/L Carbon Dioxide (22-32) mmol/L BUN (9-20) mg/dL Creatinine (0.66-1.25) mg/dL Estimated GFR (>60) mL/min BUN/Creatinine Ratio (6-22) Glucose (80-110) mg/dL Calcium (8.4-10.2) mg/dL Magnesium (1.6-2.3) mg/dL Total Bilirubin (0.2-1.3) mg/dL AST (17-59) IU/L ALT (<50) IU/L Alkaline Phosphatase (38-126) U/L Total Creatine Kinase (55-170) U/L CK-MB (CK-2) CK-MB (CK-2) Rel Index Troponin I (0.01-0.034) ng/mL Total Protein (6.3-8.2) g/dL Albumin (3.5-5.0) g/dL Globulin (1.7-4.1) g/dL Albumin/Globulin Ratio (1.0-2.8) Lipase (23-300) U/L SARS-CoV-2 (PCR) Negative (Negative) MDM Narrative Medical decision making narrative: CC: 72M dizzy with low BP Complicating co-morbidities: Age, hypertension Data collected from: Patient Medical records reviewed: Prior notes reviewed in our EMR Differential considered, but not limited to: Dehydration, sepsis, renal failure, medications versus other Exam documented above, pertinent findings include: Patient with dry mucous membranes and poor skin turgor, heart rate regular, lungs clear with nonlabored breathing, abdomen soft Lab Test results independently reviewed as above. Pertinent findings: No leukocytosis or left shift, minimal decrease in H/H. Hypokalemia. Independently reviewed EKG as above Imaging studies independently reviewed: small pleural effusion Treatments: ASA, saline, Potassium Re-evaluations: patient feeling significant improvement after above stated therapies Discussion: Patient feeling much better after fluids. Potassium replaced. No evidence of sepsis or infection. History and exam are reassuring. Labs, imaging, reassuring. Disposition: see below, along with detailed discharge instructions that have been reviewed with patient as well as indications for ED re-evaluation and additional outpatient follow up Discharge Plan Departure Patient Disposition: Home Clinical Impression: Acute dehydration, Acute hypotension, Acute hypokalemia Instructions: DI for Dizziness-Nonvertigo Activity Restrictions/Additional Instructions: *You have been diagnosed with [low blood pressure and dizziness likely due to dehydration. Your labs, history and physical exam are reassuring as is your response to therapies.] *What to do: *Please continue to take your regular medications as directed. [ ] New medication prescriptions sent to your pharmacy: [ ] [ ] New medication written as a paper prescription [ ] No new medications given *Please follow up with your primary care provider in 2-3 days, call for an appointment. Let them know you were seen in the Emergency Department and that we ask that you be seen in follow up. We will electronically transmit a record of today's note if your PCP is in our system *If you do not have a primary care provider please contact the [facility] Resource line at [phone]. They will ask some questions about your medical history and help get you set up with a doctor in the community. *Return to Emergency Department if you should have any new, worsening or concerning symptoms, such as [fever greater than 101 F, shaking chills, worsening pain, persistent vomiting or other bothersome symptoms] Prescriptions: New potassium chloride 20 mEq tablet extended release 20 meq PO DAILY Qty: 20 0RF No Action indomethacin 50 mg capsule 50 mg PO TID Qty: 10 0RF Rx Instructions: administer with food or milk hydrocodone-acetaminophen 5-325 mg tablet 1 tab PO BEDTIME PRN (Reason: pain) Qty: 10 0RF cyclobenzaprine 10 mg Tablet 10 mg PO BEDTIME albuterol sulfate 2.5 mg /3 mL (0.083 %) Solution For Nebulization 2.5 mg INHALATION Q4-6H PRN (Reason: Shortness Of Breath) trazodone 50 mg Tablet 50 mg PO BEDTIME amlodipine 10 mg Tablet 10 mg PO DAILY gabapentin 300 mg Capsule 600 mg PO TID Rx Instructions: 600mg bid, 300mg bedtime allopurinol 300 mg Tablet 300 mg PO DAILY hydrochlorothiazide 25 mg Tablet 25 mg PO DAILY albuterol sulfate 90 mcg/actuation Hfa Aerosol Inhaler 2 puff INHALATION Q4-6H PRN (Reason: Shortness Of Breath) prazosin 2 mg Capsule 2 mg PO BID mometasone 220 mcg/ actuation (60) Aerosol Powdr Breath Activated 2 inh INHALATION QAM PRN (Reason: Shortness Of Breath) omeprazole 20 mg Tablet,Delayed Release (Dr/Ec) 20 mg PO DAILY levothyroxine 75 mcg Capsule 75 mcg PO DAILY olodaterol 2.5 mcg/actuation Mist 2 inh INHALATION DAILY PRN (Reason: Shortness Of Breath) testosterone cypionate 200 mg/mL Kit 100 mg IM Q2W oxycodone 5 mg Tablet 5 mg PO Q3HR PRN (Reason: Pain, Moderate (4-6)) Qty: 40 0RF ondansetron 4 mg tablet,disintegrating 4 mg PO Q8HR PRN (Reason: nausea and vomiting) Qty: 10 0RF prednisone 5 mg tablets,dose pack See Rx Instructions .ROUTE .COMPLEX Qty: 48 0RF Rx Instructions: orally per package directions Referrals: Nils Lott ARNP [Primary Care Provider] - Stand Alone Forms: Patient Portal/API
[2023-01-24 19:15] LABS: Prothrombin Time 11.9 SECONDS (10.1-12.7)
[2023-01-24 19:18] LABS: PTT Partial Thromboplastin Tim 30 SECONDS (26-36)
[2023-01-24 19:21] LABS: Alanine Aminotransferase 19 IU/L (<50); Albumin 3.9 g/dL (3.5-5.0); Albumin Globulin Ratio 1.3 (1.0-2.8); Alkaline Phosphatase 92 U/L (38-126); Aspartate Aminotransferase 22 IU/L (17-59); BUN Creatinine Ratio 13.9 (6-22); Bilirubin Total 0.5 mg/dL (0.2-1.3); Blood Urea Nitrogen 17 mg/dL (9-20); Carbon Dioxide 29 mmol/L (22-32); Chloride 98 mmol/L (98-107); Creatine Kinase 52 U/L (55-170); Estimated Glomerular Filt Rate > 60 mL/min (>60); Glucose 156 mg/dL (80-110); HEMOLYSIS < 15 (0-50); Lipase 233 U/L (23-300); Magnesium 1.8 mg/dL (1.6-2.3); Potassium 3.2 mmol/L (3.4-5.1); Sodium 136 mmol/L (137-145); Total Protein 6.9 g/dL (6.3-8.2)
[2023-01-24] MEDS: SODIUM CHLORIDE 0.9% 1,000 ML 1000 ML IV (19:21)
[2023-01-24 19:24] LABS: COVID19 -Nasal RAPID Negative (Negative)
[2023-01-24 19:33] LABS: Troponin I < 0.012 ng/mL (0.01-0.034)
[2023-01-24] MEDS: POTASSIUM CHLORIDE 20 MEQ/15 ML UDC 40 MEQ PO (19:55)
== END 2023-01-24 20:48 | disposition home or self-care (01) ==
PROVIDERS: Emergency Provider Emergency Medicine; Family Provider Nurse Practitioner Family; PCP Nurse Practitioner Family
DX: E86.0 Dehydration (principal); E87.6 Hypokalemia; I95.9 Hypotension, unspecified; R07.9 Chest pain, unspecified; Z20.822 Contact with and (suspected) exposure to COVID-19
CPT/HCPCS: 36415; 71045; 80053; 82550; 83690; 83735; 84484; 85025; 85610; 85730; 87635; 93005; 96360; 96361; 99284; C9803

== ENCOUNTER 2023-03-10 08:07 | Emergency (ER) | payer OTHER, SELFPAY ==
[2019-08-14 18:00] VITALS: BMI 35.7
[2023-03-10] VITALS (17 sets, daily range): BP systolic 131–167; BP diastolic 74–103; PULSE 69–102; RESP 18; TEMP 36.7–37; O2SAT 93–97; BMI 36.0
[2023-03-10 08:54] LABS: Add Manual Diff / Slide Review NO; Basophils Absolute Auto 100 /uL (0-100); Basophils Percent Auto 1.4 % (0-2); Eosinophils Absolute Auto 100 /uL (0-450); Eosinophils Percent Auto 1.8 % (2-4); Hematocrit 34.4 % (41-53); Hemoglobin 11.4 g/dL (13.5-17.5); Lymphocytes Absolute Auto 1200 /uL (1100-4500); Lymphocytes Percent Auto 18.3 % (25-40); Mean Corpuscular HGB Conc 33.2 % (30-36); Mean Corpuscular Hemoglobin 26.8 PG (26-34); Mean Corpuscular Volume 80.8 fL (80-100); Monocytes Absolute Auto 400 /uL (0-900); Monocytes Percent Auto 5.9 % (3-14); Neutrophils Absolute Auto 4800 /uL (1500-7000); Neutrophils Percent Auto 72.6 % (50-75); Platelet Count 207 X10^3/uL (150-400); Red Blood Cell Count 4.25 X10^6/uL (4.5-5.9); Red Cell Distribution Width 17.8 % (11.6-14.8); White Blood Cell Count 6.7 X10^3/uL (4.5-11.0)
[2023-03-10] MEDS: ONDANSETRON 4 MG/2 ML INJ IV (08:56)
[2023-03-10 09:04] LABS: Alanine Aminotransferase 21 IU/L (<50); Albumin 4.3 g/dL (3.5-5.0); Albumin Globulin Ratio 1.3 (1.0-2.8); Alkaline Phosphatase 91 U/L (38-126); Aspartate Aminotransferase 24 IU/L (17-59); BUN Creatinine Ratio 13.2 (6-22); Bilirubin Total 0.6 mg/dL (0.2-1.3); Blood Urea Nitrogen 12 mg/dL (9-20); Calcium 10.2 mg/dL (8.4-10.2); Carbon Dioxide 28 mmol/L (22-32); Chloride 102 mmol/L (98-107); Creatine Kinase 99 U/L (55-170); Estimated Glomerular Filt Rate > 60 mL/min (>60); Globulin 3.3 g/dL (1.7-4.1); Glucose 108 mg/dL (80-110); HEMOLYSIS < 15 (0-50); Lipase 56 U/L (23-300); Potassium 3.4 mmol/L (3.4-5.1); Sodium 140 mmol/L (137-145); Total Protein 7.6 g/dL (6.3-8.2)
[2023-03-10 09:15] LABS: Troponin I < 0.012 ng/mL (0.01-0.034)
[2023-03-10] MEDS: SODIUM CHLORIDE 0.9% 1,000 ML 1000 ML IV (09:47)
--- NOTE | 2023-03-10 10:11 | ED.NAVMDI ---
HPI - Nausea/Vomiting/Diarrhea General Chief complaint: Nausea/Vomiting/Diarrhea Stated complaint: V T-1 can't keep water down Time Seen by Provider: 03/10/23 08:47 Source: patient Mode of arrival: Ambulatory History of Present Illness HPI Narrative: This is a 72-year-old male with history of hypertension, hypothyroidism, leukemia/lymphoma which is under surveillance but not requiring treatment and chronic back pain. Patient states yesterday at about 1 he had some chicken so launch macro wan times that were frozen in some chiquita and about 3 or 4 hours later started having nausea and vomiting and emesis which is continued throughout tonight and into today. Patient states that it has been mostly clear watery liquid and occasionally small bits of food. He states he was drinking water in between to try to stay hydrated overnight. He has not had any objective fevers but has felt chilled. Patient states some persistent nausea when he drinks but not when he is resting. He states he had a bowel movement yesterday that was formed and solid. He denies any black or bloody stools. No other diarrhea constipation. He states he put out a urinal about 3/4 size overnight and was able to urinate a small amount this morning. No dysuria, urgency or frequency. He notes that he was not able to take his medications and his chronic back pain from his lumbar fusion in December has flared up a little. Patient denies any syncope. No chest pain or shortness of breath. He states he took his blood pressure medications yesterday morning, he tried to take his medication last night but through a backup or his medication this morning. 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 He states he is allergic to Benadryl gives him a rash. Former tobacco, occasional alcohol, no illicit. Related Data Home Medications Medication Instructions Recorded Confirmed allopurinol 300 mg tablet 300 mg PO DAILY 08/09/19 03/10/23 amlodipine 10 mg tablet 10 mg PO DAILY 08/09/19 03/10/23 gabapentin 300 mg capsule 600 mg PO TID 08/09/19 03/10/23 hydrochlorothiazide 25 mg tablet 25 mg PO DAILY 08/09/19 03/10/23 levothyroxine 75 mcg capsule 75 mcg PO DAILY 08/09/19 03/10/23 omeprazole 20 mg tablet,delayed 20 mg PO DAILY 08/09/19 03/10/23 release prazosin 2 mg capsule 2 mg PO BID 08/09/19 03/10/23 indomethacin 50 mg capsule 50 mg PO DAILY 03/10/23 03/10/23 Previous Rx's Medication Instructions Recorded oxycodone 5 mg tablet 5 mg PO Q3HR PRN Pain, Moderate 08/15/19 (4-6) #40 tabs hydrocodone 5 mg-acetaminophen 325 1 tab PO BEDTIME PRN pain #10 tabs 07/29/22 mg tablet potassium chloride 20 mEq 20 meq PO DAILY #20 tabs 01/24/23 tablet,extended release ondansetron 4 mg disintegrating 4 mg PO Q6H PRN nausea and 03/10/23 tablet vomiting #7 tabs Allergies Allergy/AdvReac Type Severity Reaction Status Date / Time clindamycin Allergy Severe Rash Verified 03/10/23 08:29 diphenhydramine Allergy Intermediate Hives Verified 03/10/23 08:29 lisinopril AdvReac Severe Cough Verified 03/10/23 08:29 Review of Systems Review of Systems ROS Unobtainable: All systems reviewed & are unremarkable except as noted in HPI and below Patient History Medical History (Updated 03/10/23 @ 11:50 by Eda Paz DO) Colonic polyp Depression Diverticulosis GERD (gastroesophageal reflux disease) Gout Hearing impaired Hernia HTN (hypertension) Hyperlipidemia Hypothyroid Influenza A (~01/06/19) Osteoarthritis Pituitary adenoma (~2013) Pulmonary nodule Scoliosis Spinal stenosis Surgical History History of colonoscopy History of lumbar laminectomy History of total left hip arthroplasty (~2013) Hx of hernia repair (~2015) Hx of tonsillectomy Social History household members: none Smoking Status: Former smoker alcohol intake: current substance use type: does not use Smoking Status: Former smoker alcohol intake frequency: holidays/special occasions only Substance Use Type: does not use Exam Narrative Exam Narrative: GENERAL: Alert and oriented x three, well-nourished male in mild distress. HEENT: Head normocephalic, atraumatic, EOMI, pupils reactive, face symmetric, moist mucous membranes NECK: Supple, full range of motion CARDIOVASCULAR: Regular rate and rhythm without murmurs, rubs or gallops. RESPIRATORY: Breath sounds equal bilaterally, no wheezes rales or rhonchi. ABDOMEN: Soft, very mild tenderness in the right upper quadrant. Normoactive bowel sounds all 4 quadrants. No guarding or rebound, rigidity, no mass, nondistended. : No CVA tenderness EXTREMITIES: Normal range of motion, no clubbing or edema. Neurovascularly intact NEUROLOGICAL: Cranial nerves II through XII grossly intact. Moving all extremities SKIN: Warm, dry, no petechiae, no rashes or lesions. Initial Vital Signs Initial Vital Signs: Vital Signs Temperature 98.6 F 03/10/23 08:27 Pulse Rate 102 H 03/10/23 08:27 Respiratory Rate 18 03/10/23 08:27 Blood Pressure 154/74 H 03/10/23 08:27 Pulse Oximetry 97 03/10/23 08:27 Oxygen Delivery Method Room Air 03/10/23 08:27 Course Orders Ordered: ED Orders 03/10/23 10:32 CT abdomen pelvis w con Stat 03/10/23 10:38 Respiratory Panel (Film Array) Stat Discontinued Medications Sodium Chloride (Normal Saline 0.9%) 1,000 mls @ 1,000 mls/hr IV BOLUS ONE Stop: 03/10/23 10:31 Last Infusion: 03/10/23 11:07 Dose: 0 mls/hr Documented By: Admin: 03/10/23 09:47 Dose: 1,000 mls/hr Documented By: IMAN Ondansetron HCl (Ondansetron 4 Mg/2 Ml Inj) 4 mg IV NOW PRN PRN Reason: Nausea And Vomiting Last Admin: 03/10/23 08:56 Dose: 4 mg Documented By: IMAN Vital Signs Vital signs: Vital Signs - 8 hr 03/10/23 10:00 03/10/23 10:30 03/10/23 10:50 Temperature Pulse Rate 70 77 Blood Pressure 167/81 H Pulse Oximetry 94 95 03/10/23 10:50 03/10/23 10:55 03/10/23 11:00 Temperature 98.1 F Pulse Rate 96 H 95 H 91 H Blood Pressure Pulse Oximetry 95 96 96 03/10/23 11:01 03/10/23 11:17 03/10/23 11:17 Temperature Pulse Rate 91 H 97 H Blood Pressure 131/103 H Pulse Oximetry 96 95 03/10/23 11:22 03/10/23 11:22 03/10/23 11:30 Temperature Pulse Rate 89 Blood Pressure 157/78 H 156/86 H Pulse Oximetry 96 03/10/23 11:30 03/10/23 11:45 03/10/23 11:45 Temperature Pulse Rate 90 87 Blood Pressure 163/90 H Pulse Oximetry 93 94 03/10/23 11:59 03/10/23 12:00 03/10/23 12:00 Temperature Pulse Rate 91 H 90 Blood Pressure 162/93 H Pulse Oximetry 94 94 03/10/23 12:18 03/10/23 12:18 03/10/23 12:30 Temperature Pulse Rate 100 H Blood Pressure 148/79 H 153/85 H Pulse Oximetry 95 03/10/23 12:30 Temperature Pulse Rate 91 H Blood Pressure Pulse Oximetry 96 MDM - Nausea/Vomiting/Diarrhea Lab Data 03/10/23 08:25 03/10/23 08:25 Labs: Lab Results 03/10/23 03/10/23 03/10/23 Range/Units 08:25 08:25 10:38 WBC 6.7 (4.5-11.0) X10^3/uL RBC 4.25 L (4.5-5.9) X10^6/uL Hgb 11.4 L (13.5-17.5) g/dL Hct 34.4 L (41-53) % MCV 80.8 (80-100) fL MCH 26.8 (26-34) PG MCHC 33.2 (30-36) % RDW 17.8 H (11.6-14.8) % Plt Count 207 (150-400) X10^3/uL Neut % (Auto) 72.6 (50-75) % Lymph % (Auto) 18.3 L (25-40) % [place] % (Auto) 5.9 (3-14) % Eos % (Auto) 1.8 L (2-4) % Baso % (Auto) 1.4 (0-2) % Neut # (Auto) 4800 (4747-9994) /uL Lymph # (Auto) 1200 (4356-0227) /uL [place] # (Auto) 400 (0-900) /uL Eos # (Auto) 100 (0-450) /uL Baso # (Auto) 100 (0-100) /uL Sodium 140 (137-145) mmol/L Potassium 3.4 (3.4-5.1) mmol/L Chloride 102 (98-107) mmol/L Carbon Dioxide 28 (22-32) mmol/L BUN 12 (9-20) mg/dL Creatinine 0.91 (0.66-1.25) mg/dL Estimated GFR > 60 (>60) mL/min BUN/Creatinine Ratio 13.2 (6-22) Glucose 108 (80-110) mg/dL Calcium 10.2 (8.4-10.2) mg/dL Total Bilirubin 0.6 (0.2-1.3) mg/dL AST 24 (17-59) IU/L ALT 21 (<50) IU/L Alkaline Phosphatase 91 (38-126) U/L Total Creatine Kinase 99 (55-170) U/L CK-MB (CK-2) TNP CK-MB (CK-2) Rel Index TNP Troponin I < 0.012 (0.01-0.034) ng/mL Total Protein 7.6 (6.3-8.2) g/dL Albumin 4.3 (3.5-5.0) g/dL Globulin 3.3 (1.7-4.1) g/dL Albumin/Globulin Ratio 1.3 (1.0-2.8) Lipase 56 (23-300) U/L Chlamy pneumoniae PCR Not detected (Not Detect) Adenovirus (PCR) Not detected (Not Detect) B. pertussis DNA (PCR) Not detected (Not Detecte) B.parapertussis DNA PCR Not detected (Not Detecte) Coronavirus OC43 (PCR) Not detected (Not Detect) Coronavirus HKU1 (PCR) Not detected (Not Detect) Coronavirus 229E (PCR) Not detected (Not Detect) SARS-CoV-2 (PCR) Not detected (Not Detecte) Coronavirus NL63 (PCR) Not detected (Not Detect) Human Metapneumovir PCR Not detected (Not Detect) Influenza Type A (PCR) Not detected (Not Detect) Influenza Type B (PCR) Not detected (Not Detect) M. pneumoniae (PCR) Not detected (Not Detect) Parainfluenza 1 (PCR) Not detected (Not Detect) Parainfluenza 2 (PCR) Not detected (Not Detect) Parainfluenza 3 (PCR) Not detected (Not Detect) Parainfluenza 4 (PCR) Not detected (Not Detect) RSV (PCR) Not detected (Not Detect) Entero/Rhino (PCR) Not detected (Not Detect) Urine Dip Bedside Urine Glucose Negative Bedside Urine Bilirubin - Negative Bedside Urine Ketone - Negative Urine Specific [place] 1.010 Bedside Urine Occult Blood - Negative Bedside Urine pH 7.5 Bedside Urine Protein +/- 15 Bedside Urine Urobilinogen +/- 1mg Bedside Urine Nitrite - Negative Bedside Urine Leukocytes - Negative Esterase Imaging Data CT scan - abdomen/pelvis: Radiologist's Impression: [address] [address] [address] Scan Report Signed Patient: Weston Gomez MR#: [id number] : 1950 Acct:[id number] Age/Sex: 72 / M Date of Service: 03/10/23 Loc: ED Accession Number: [id number] ?? Procedure: CT abdomen pelvis w con Ordering Provider: Eda Paz D.O. PROCEDURE:? CT ABDOMEN PELVIS W CON ? INDICATIONS:? vomiting x 18 hours, no pain, hx gallstones,leuk/lymphoma ? TECHNIQUE:? After the administration of intravenous contrast, axial sections acquired from the lung bases to the pubic symphysis.? Coronal and sagittal reformats were performed.? For radiation dose reduction, the following was used:? automated exposure control, adjustment of mA and/or kV according to patient size.? ? COMPARISON:? [facility], CT, CT CHEST ABD PEL W CON, 04/20/2022, 12:44.? [facility], CT, CT ABDOMEN PELVIS WITH CONTRAST, 12/07/2019, 10:11. ? FINDINGS:? Image quality:? Excellent.? ? Lung bases:? A Tamiko fissural density in the right lung is unchanged on image 1 of series 2, possibly representing a fissural lymph node. Heart:? No significant findings. ? ABDOMEN: Liver:? Unremarkable.? ? Gallbladder:? There are numerous tiny layering stones and gravel in the gallbladder.? No gallbladder wall thickening.? ? Biliary ducts:? Unremarkable.? ? Pancreas:? Unremarkable.? ? Spleen:? Unremarkable.? ? Adrenal Glands:? Unremarkable.? ? Kidneys and Ureters:? There are multiple bilateral small nonobstructing renal stones.? No hydronephrosis.? Ureters are unremarkable. ? Stomach and Bowel:? Mild diverticulosis without evidence of diverticulitis.? No dilated loops or loops with wall thickening.? Peritoneum:? No abnormal intraperitoneal fluid.? No free air.? ? Ventral Wall: ? No hernias.? Abdominal Nodes:? There is a stable aortocaval lymph node measuring 2.0 x 1.9 cm on current image 38/2.? Other shotty retroperitoneal lymph nodes are also stable.? This includes a distal right external iliac lymph node measuring 2.3 x 1.1 cm on current image 77/2. Vessels:? Aorta and inferior vena cava are normal in size.? ? PELVIS: Pelvic Organs:? Unremarkable.? ? Bladder:? Unremarkable.? ? Pelvic Nodes: No enlarged lymph nodes.? Miscellaneous: No hernias are seen.? There is a small amount of right posterior lateral subcutaneous/abdominal wall fluid which is consistent with postsurgical change, status post interval lumbar fusion. ? Bones:? Total left hip arthroplasty.? Interval posterior lateral sarai and pedicle screw fixation of L2 through L5 with resultant metallic artifact.? Old T12 compression. ? ? IMPRESSION:? ? 1. Cholelithiasis.? Innumerable small stones and gallbladder gravel.? No gallbladder wall thickening or other signs of acute inflammation. ? 2. Bilateral nonobstructing renal stones. ? 3. Stable lymph nodes, including an aortocaval lymph node measuring 1.9 x 2.0 cm. ? 4. A small amount of fluid in the right lower quadrant abdominal wall/subcutaneous tissues is likely postsurgical in nature. ? 5. No evidence of acute abdominal process.? ? ? Dictated by: Deepak Couch M.D. on 03/10/2023 at 11:21 ? ? Approved by: Deepak Couch M.D. on 03/10/2023 at 11:38?? ECG Data Attestation: I personally reviewed and interpreted this ECG as follows: MDM Narrative Medical decision making narrative: This is a 72-year-old male who presents with complaint of persistent vomiting that started a couple hours after eating some frozen food. Patient states no diarrhea, he is had some subjective chills. He denies any other symptoms currently. He notes his blood pressure is little bit high but also notes he was unable to keep his normal blood pressure medications down. Patient's labs showed no elevated white count, does have a low lymphocyte count, no leftward shift, hemoglobin is 11 which appears consistent with priors from 2019, normal platelets. CMP shows normal electrolytes, BUN and kidney function, glucose is 108, negative troponin. CT abdomen pelvis-shows cholelithiasis, no gallbladder wall thickening, patient has some bilateral nonobstructing renal stones, stable lymph nodes with no increase in size appears stable. Patient has a small amount of right posterolateral subcutaneous/abdominal wall fluid consistent with prior surgery. Patient is not tender in this area on examination no clear signs of abscess. Discussed with patient after patient received fluids, Zofran he is able to tolerate his home medications. Plan for watchful waiting, return precautions. Patient was given short-term script of Zofran with plan to slowly advance his diet from clears to solids tomorrow. Discharge Plan Departure Patient Disposition: Home Clinical Impression: Vomiting, Cholelithiasis Instructions: DI for Vomiting -- Adult Activity Restrictions/Additional Instructions: Please follow-up with your physician recheck. You do have gallstones but no other clear signs of infection on your workup today. You do have lymph nodes which are enlarged and present which appears stable compared to prior imaging. There is a small amount of fluid in the right lower abdomen likely secondary to your surgery in December. You do have gallstones on your imaging today. Please take Zofran 1 tablet every 6 hours as needed for nausea. You may slowly increase oral fluids over the next 12-24 hours if tolerating you can then start adding solids back into your diet. Prescription sent to [facility] in [place]. Please return for fevers, new or worsening chest pain, shortness of breath, lightheadedness or passing out, persistent vomiting, black or bloody stools or other new or concerning changes. Prescriptions: New ondansetron 4 mg tablet,disintegrating 4 mg PO Q6H PRN (Reason: nausea and vomiting) Qty: 7 0RF No Action hydrocodone-acetaminophen 5-325 mg tablet 1 tab PO BEDTIME PRN (Reason: pain) Qty: 10 0RF amlodipine 10 mg Tablet 10 mg PO DAILY gabapentin 300 mg Capsule 600 mg PO TID Rx Instructions: 600mg bid, 300mg bedtime allopurinol 300 mg Tablet 300 mg PO DAILY hydrochlorothiazide 25 mg Tablet 25 mg PO DAILY prazosin 2 mg Capsule 2 mg PO BID omeprazole 20 mg Tablet,Delayed Release (Dr/Ec) 20 mg PO DAILY levothyroxine 75 mcg Capsule 75 mcg PO DAILY oxycodone 5 mg Tablet 5 mg PO Q3HR PRN (Reason: Pain, Moderate (4-6)) Qty: 40 0RF potassium chloride 20 mEq tablet extended release 20 meq PO DAILY Qty: 20 0RF indomethacin 50 mg capsule 50 mg PO DAILY Rx Instructions: administer with food or milk Referrals: Nils Lott ARNP [Primary Care Provider] - Stand Alone Forms: Patient Portal/API
--- NOTE | 2023-03-10 10:32 | DI.CT.S_ITS ---
PROCEDURE: CT ABDOMEN PELVIS W CON INDICATIONS: vomiting x 18 hours, no pain, hx gallstones,leuk/lymphoma TECHNIQUE: After the administration of intravenous contrast, axial sections acquired from the lung bases to the pubic symphysis. Coronal and sagittal reformats were performed. For radiation dose reduction, the following was used: automated exposure control, adjustment of mA and/or kV according to patient size. COMPARISON: [facility], CT, CT CHEST ABD PEL W CON, 04/20/2022, 12:44. [facility], CT, CT ABDOMEN PELVIS WITH CONTRAST, 12/07/2019, 10:11. FINDINGS: Image quality: Excellent. Lung bases: A Tamiko fissural density in the right lung is unchanged on image 1 of series 2, possibly representing a fissural lymph node. Heart: No significant findings. ABDOMEN: Liver: Unremarkable. Gallbladder: There are numerous tiny layering stones and gravel in the gallbladder. No gallbladder wall thickening. Biliary ducts: Unremarkable. Pancreas: Unremarkable. Spleen: Unremarkable. Adrenal Glands: Unremarkable. Kidneys and Ureters: There are multiple bilateral small nonobstructing renal stones. No hydronephrosis. Ureters are unremarkable. Stomach and Bowel: Mild diverticulosis without evidence of diverticulitis. No dilated loops or loops with wall thickening. Peritoneum: No abnormal intraperitoneal fluid. No free air. Ventral Wall: No hernias. Abdominal Nodes: There is a stable aortocaval lymph node measuring 2.0 x 1.9 cm on current image 38/2. Other shotty retroperitoneal lymph nodes are also stable. This includes a distal right external iliac lymph node measuring 2.3 x 1.1 cm on current image 77/2. Vessels: Aorta and inferior vena cava are normal in size. PELVIS: Pelvic Organs: Unremarkable. Bladder: Unremarkable. Pelvic Nodes: No enlarged lymph nodes. Miscellaneous: No hernias are seen. There is a small amount of right posterior lateral subcutaneous/abdominal wall fluid which is consistent with postsurgical change, status post interval lumbar fusion. Bones: Total left hip arthroplasty. Interval posterior lateral sarai and pedicle screw fixation of L2 through L5 with resultant metallic artifact. Old T12 compression. IMPRESSION: 1. Cholelithiasis. Innumerable small stones and gallbladder gravel. No gallbladder wall thickening or other signs of acute inflammation. 2. Bilateral nonobstructing renal stones. 3. Stable lymph nodes, including an aortocaval lymph node measuring 1.9 x 2.0 cm. 4. A small amount of fluid in the right lower quadrant abdominal wall/subcutaneous tissues is likely postsurgical in nature. 5. No evidence of acute abdominal process. Dictated by: Deepak Couch M.D. on 03/10/2023 at 11:21 Approved by: Deepak Couch M.D. on 03/10/2023 at 11:38
[2023-03-10 11:34] LABS: Adenovirus Not Detected (Not Detect); B. parapertussis Not Detected (Not Detecte); Bordetella pertussis Not Detected (Not Detecte); Chlamydophila pneumoniae Not Detected (Not Detect); Coronavirus 229E Not Detected (Not Detect); Coronavirus HKU1 Not Detected (Not Detect); Coronavirus NL 63 Not Detected (Not Detect); Coronavirus OC43 Not Detected (Not Detect); Human Metapneumovirus Not Detected (Not Detect); Human Rhinovirus/Enterovirus Not Detected (Not Detect); Influenza A Not Detected (Not Detect); Influenza B Not Detected (Not Detect); Mycoplasma pneumoniae Not Detected (Not Detect); Parainfluenza Virus 1 Not Detected (Not Detect); Parainfluenza Virus 2 Not Detected (Not Detect); Parainfluenza Virus 3 Not Detected (Not Detect); Parainfluenza Virus 4 Not Detected (Not Detect); Respiratory Syncytial Virus Not Detected (Not Detect); SARS- CoV-2 Not Detected (Not Detecte)
== END 2023-03-10 12:58 | disposition home or self-care (01) ==
PROVIDERS: Emergency Provider Emergency Medicine; Family Provider Nurse Practitioner Family; PCP Nurse Practitioner Family
DX: K80.20 Calculus of gallbladder without cholecystitis without obstruction (principal); R11.2 Nausea with vomiting, unspecified; Z20.822 Contact with and (suspected) exposure to COVID-19
CPT/HCPCS: 36415; 74177; 80053; 81003; 82550; 83690; 84484; 85025; 87633; 96361; 96374; 99284; J2405; Q9967

== ENCOUNTER → 2023-03-22 15:50 | Outpatient (CLI) | payer OTHER, SELFPAY ==
[2019-08-14 18:00] VITALS: BMI 35.7
--- NOTE | 2023-03-22 | DI.RAD.S_ITS ---
PROCEDURE: XR LUMBAR SPINE 2-3V INDICATIONS: BACK PAIN TECHNIQUE: 3 views of the lumbar spine were acquired. COMPARISON: [facility], CT, CT LUMBAR SPINE WO CON, 10/19/2022, 12:20. FINDINGS: Bones: 5 [id number] vertebrae are present. Postsurgical changes compatible with L2-L5 PLIF. Orthopedic hardware is in expected position. Orthopedic hardware is intact. There is normal bony alignment. Convex left lumbar spine scoliosis. T12 compression fracture stable compared to prior CT scan obtained October 19, 2022. No acute compression fractures. No suspicious bony lesions. Severe L1-L2 and L5-S1 degenerative disc changes. Moderate L3-L4, L4-L5 and L5-S1 facet arthropathy. Mild L1-L2 and L2-L3 facet arthropathy. Partially visualized left hip arthroplasty. Soft tissues: Overlying bowel gas pattern is normal. No suspicious soft tissue calcifications. IMPRESSION: L2-L5 PLIF. Multilevel degenerative disc disease. Multilevel facet arthropathy. Chronic T12 compression fracture. No acute compression fracture identified. Convex left scoliosis. Dictated by: Summer Aguilar MD, PhD on 03/22/2023 at 16:51 Approved by: Summer Aguilar MD, PhD on 03/22/2023 at 16:54
== END ==
PROVIDERS: Family Provider Nurse Practitioner Family; PCP Nurse Practitioner Family; Referring Provider Neurological Surgery; Visit Provider Neurological Surgery
DX: M47.816 Spondylosis without myelopathy or radiculopathy, lumbar region (principal); M47.817 Spondylosis without myelopathy or radiculopathy, lumbosacral region; M41.9 Scoliosis, unspecified; M48.54XS Collapsed vertebra, not elsewhere classified, thoracic region, sequela of fracture; M54.50 Low back pain, unspecified; Z98.1 Arthrodesis status
CPT/HCPCS: 72100

== ENCOUNTER → 2023-04-28 12:54 | Outpatient (CLI) | payer OTHER, SELFPAY ==
[2019-08-14 18:00] VITALS: BMI 35.7
--- NOTE | 2023-04-28 | DI.CT.S_ITS ---
PROCEDURE: CT CHEST ABD PEL W CON INDICATIONS: Chronic lymphocytic leukemia of B-cell type TECHNIQUE: After the administration of oral and intravenous contrast, axial sections acquired from the supraclavicular neck to the pubic symphysis. Coronal and sagittal reformats were performed. For radiation dose reduction, the following was used: automated exposure control, adjustment of mA and/or kV according to patient size. COMPARISON: [facility], CT, CT ABDOMEN PELVIS W CON, 03/10/2023, 10:42. [facility], CT, CT CHEST ABD PEL W CON, 04/20/2022, 12:44. FINDINGS: CHEST: Lower Neck: No enlarged lymph nodes. Axillae: No enlarged lymph nodes. Lungs: Similar irregular left perihilar soft tissue/adenopathy. Possible postsurgical changes of the left upper lobe as before. No pleural effusion. Few perifissural lymph nodes also similar to before, likely intrapulmonary lymph nodes. Heart: No pericardial effusion. Thoracic Vessels: The aorta and pulmonary arteries demonstrate normal size. Mediastinum and Jazmine: 1.3 centimeter lower paratracheal lymph node (12/11), unchanged when remeasured similarly. Esophagus: No wall thickening. ABDOMEN: Liver: Unremarkable. Gallbladder: Tiny stones and sludge present as before. Biliary ducts: Unremarkable. Pancreas: Unremarkable. Spleen: No splenomegaly. Adrenal Glands: Unremarkable. Kidneys and Ureters: No hydronephrosis. Nonobstructing renal stones present bilaterally. Stomach and Bowel: No bowel obstruction. Mild predominantly sigmoid colonic diverticulosis without evidence of acute diverticulitis. Peritoneum: No abnormal intraperitoneal fluid. No free air. Abdominal Nodes: Retroperitoneal lymphadenopathy present as before. For example a 2.3 x 1.8 centimeter aortocaval lymph node () previously 2.2 x 1.7 centimeters not significantly changed. Vessels: Aorta and inferior vena cava are normal in size. PELVIS: Pelvic Organs: Unremarkable. Bladder: Unremarkable. Pelvic Nodes: Prominent and mildly enlarged iliac chain lymph nodes present as before, not significantly changed, for example a right external iliac chain lateral group lymph node measuring 1.2 centimeters () previously 1.1 centimeters remeasured. Bones: Multilevel degenerative change of the visualized spine. Lumbar spine fusion changes, left shoulder and left hip arthroplasties. IMPRESSION: No significant change in lymphadenopathy within the chest, abdomen, or pelvis. Dictated by: Issac Lin M.D. on 04/29/2023 at 9:26 Approved by: Issac Lin M.D. on 04/29/2023 at 10:04
[2023-04-28 13:56] LABS: Estimated Glomerular Filt Rate > 60 mL/min (>60)
== END ==
PROVIDERS: Specialist; Family Provider Nurse Practitioner Family; PCP Nurse Practitioner Family; Referring Provider Internal Medicine Hematology & Oncology; Visit Provider Internal Medicine Hematology & Oncology
DX: C88.4 Extranodal marginal zone B-cell lymphoma of mucosa-associated lymphoid tissue [MALT-lymphoma] (principal); C91.10 Chronic lymphocytic leukemia of B-cell type not having achieved remission; R59.1 Generalized enlarged lymph nodes
CPT/HCPCS: 36415; 71260; 74177; 82565; Q9967

== ENCOUNTER → 2023-12-12 16:03 | Outpatient (CLI) | payer OTHER, SELFPAY ==
[2019-08-14 18:00] VITALS: BMI 35.7
--- NOTE | 2023-12-12 | DI.MRI.S_ITS ---
PROCEDURE: MR BRAIN (PITUITARY) WWO CON INDICATIONS: Benign neoplasm of pituitary gland TECHNIQUE: Noncontrast sagittal and axial FLAIR, axial gradient echo, axial diffusion and ADC through the brain. Thin-slice sagittal and coronal T1 spin echo, coronal T2 fast spin echo through the pituitary. After the administration contrast, optional dynamic coronal T1 spin echo, thin-slice coronal and sagittal T1 spin echo images through the pituitary fossa; axial and coronal and sagittal T1 spin echo with fat saturation through the brain. COMPARISON: Outside Facility, , MRI BRAIN (PIT) W/WO CONTRAST, 10/20/2015, 10:12. [facility], , MRI HEAD W/WO CONTRAST, 03/18/2017, 11:33. [facility], , MR HEAD/BRAIN WO/W CON, 02/21/2019, 13:59. FINDINGS: Image quality: Excellent. Pituitary Gland: The volume of pituitary tissue is within normal limits, which is largely seen along the left aspect of the pituitary fossa. On postcontrast imaging, no benjie enhancing masses are seen. The pituitary stalk and infundibulum have an unremarkable appearance. A normal appearing pituitary bright spot is seen posteriorly on the precontrast sagittal T1-weighted images. The optic chiasm and the ventral forebrain have an unremarkable appearance. CSF Spaces: Ventricles are normal in size and shape. Basal cisterns are patent. No extra-axial fluid collections. Brain: No intracranial bleeds or mass effects. No abnormal intracranial enhancement. [place]-white matter interface is intact. Diffusion weighted images demonstrate no acute ischemic insults. Brainstem is normal. Normal intravascular flow voids are present. Skull and face: Calvarial marrow is normal in signal. Orbits appear normal. Sinuses: Prior trans-sphenoidal pituitary surgery can be seen. Sinuses and mastoids are clear. IMPRESSION: Prior trans-sphenoidal resection change can be seen. The remaining pituitary tissue is seen largely along the left aspect of the pituitary fossa and is unchanged compared to 2019. No recurrent masses are seen. Dictated by: Fidel Wills M.D. on 12/12/2023 at 16:36 Approved by: Fidel Wills M.D. on 12/12/2023 at 16:39
--- NOTE | 2023-12-12 | DI.RAD.S_ITS ---
PROCEDURE: XR LUMBAR SPINE 2-3V INDICATIONS: LOW BACK PAIN TECHNIQUE: 3 views of the lumbar spine were acquired. COMPARISON: [facility], CR, XR LUMBAR SPINE 2-3V, 03/22/2023, 16:02. FINDINGS: Bones: 5 [id number] vertebrae are present. There is levoscoliosis. There is mild compression fracture of T12, unchanged. No suspicious bony lesions. There are postsurgical changes with discectomies, posterior decompression and posterior fusion at L2-L5 with disc prostheses. Surgical hardware appear intact. Moderate to severe degenerative disease at T12-L1, L1-L2 and L5-S1. Moderate to severe facet arthropathy at L4-L5 and L5-S1. Osteopenia. Soft tissues: Overlying bowel gas pattern is normal. No suspicious soft tissue calcifications. IMPRESSION: 1. Stable postsurgical changes with discectomies, disc prostheses, laminectomy and posterior fusion at L2-L5. 2. Moderate to severe degenerative disc disease and facet arthropathy. 3. Stable chronic compression fracture of T12. 4. Levoscoliosis. 5. Osteopenia. 6. Because of osteopenia and extensive degenerative and postsurgical changes, visualization of osseous structures are suboptimal. Consider CT or MRI for further evaluation if clinical symptoms persist. Dictated by: Mayco Lopez M.D. on 12/13/2023 at 10:07 Approved by: Mayco Lopez M.D. on 12/13/2023 at 10:20
== END ==
PROVIDERS: Family Provider Nurse Practitioner Family; PCP Nurse Practitioner Family; Referring Provider Neurological Surgery; Visit Provider Neurological Surgery
DX: D35.2 Benign neoplasm of pituitary gland (principal); M51.36 Other intervertebral disc degeneration, lumbar region; M51.37 Other intervertebral disc degeneration, lumbosacral region; M51.35 Other intervertebral disc degeneration, thoracolumbar region; M47.816 Spondylosis without myelopathy or radiculopathy, lumbar region; M47.817 Spondylosis without myelopathy or radiculopathy, lumbosacral region; M41.9 Scoliosis, unspecified; M85.88 Other specified disorders of bone density and structure, other site; M48.54XS Collapsed vertebra, not elsewhere classified, thoracic region, sequela of fracture; Z98.1 Arthrodesis status
CPT/HCPCS: 70553; 72100

== ENCOUNTER → 2024-01-03 14:56 | Outpatient (CLI) | payer OTHER, SELFPAY ==
[2019-08-14 18:00] VITALS: BMI 35.7
--- NOTE | 2024-01-03 14:57 | DI.CT.S_ITS ---
PROCEDURE: CT LUMBAR SPINE WO CON INDICATIONS: Scoliosis, unspecified TECHNIQUE: Noncontrast 3 mm thick sections acquired from the T12 level to the sacrum. Sagittal and coronal reformats were constructed. For radiation dose reduction, the following was used: automated exposure control. COMPARISON: [facility], CT, CT LUMBAR SPINE WO CON, 10/19/2022, 12:20. FINDINGS: Image quality: Suboptimal evaluation due to metallic artifact. Bones: Convex left scoliosis, [place] angle of 30 degrees, centered at L2. Posterior and interbody surgical fusion of L2 through L5, without hardware complication. Decreased bone mineralization and similar compression deformity of the T12 vertebral body. T12-L1: Moderate disc height loss. L1-L2: Severe disc height loss. Disc osteophyte complex. L2-L3: Moderate disc height loss. Disc osteophyte complex. Mild facet hypertrophy. L3-L4: Moderate disc height loss, disc osteophyte complex, right greater than left facet hypertrophy. Moderate spinal canal narrowing. L4-L5: Bilateral facet hypertrophy and arthrosis. Disc osteophyte complex. L5-S1: Left greater than right facet arthrosis with disc osteophyte complex. Soft tissues: No retroperitoneal masses or hematomas. Visualized aorta is normal in caliber. A pair of punctate nonobstructing right-sided nephrolithiasis. IMPRESSION: Interval surgical fusion of L2 through S1, without hardware complication. Stable multilevel degenerative disc disease and facet arthrosis, with moderate spinal canal narrowing at L3-4. Dictated by: Rocael Garcia M.D. on 01/03/2024 at 16:40 Approved by: Rocael Garcia M.D. on 01/03/2024 at 16:45
--- NOTE | 2024-01-03 14:57 | DI.MRI.S_ITS ---
PROCEDURE: MR LUMBAR SPINE WO/W CON INDICATIONS: Scoliosis, unspecified TECHNIQUE: Noncontrast sagittal T1 spin echo and T2 fast spin echo, sagittal STIR, axial T1 and T2 fast spin echo through the lumbar spine. In cases with scoliosis, additional coronal T2 fast spin echo may be performed. After the administration of contrast, sagittal and axial T1 spin echo with fat saturation through the lumbar spine. COMPARISON: [facility], , L-SPINE W&WO CONTRAST, 11/28/2017, 11:07. FINDINGS: Image quality: Excellent. Alignment and curvature: Levo scoliotic curvature of the lumbar spine. Straightening of the normal lumbar lordosis. Transitional vertebral body anatomy with lumbarization of the S1 vertebral body. Marrow: Postsurgical changes from L2 through L5 posterior spinal fixation and discectomy. Modic type 1 degenerative endplate changes at L4-5. Marrow is of normal overall signal. Chronic anterior wedging of the T12 vertebral body with 50% height loss anteriorly. No acute vertebral body compression fractures. No suspicious marrow enhancement. Spinal cord: Conus medullaris terminates at the L1 level. Visualized spinal cord demonstrates normal signal, without suspicious enhancement. Paraspinous soft tissues: No paravertebral masses or abnormal enhancement. T12-L1: Disc desiccation height loss. Mild bulge. Facet arthropathy. No significant central canal stenosis. Stable mild bilateral neural foraminal stenosis. L1-L2: Severe disc desiccation height loss. Facet arthropathy. No central canal stenosis. Moderate right and mild left neural foraminal stenosis is stable. L2-L3: Postoperative changes. No central canal stenosis. Facet arthropathy. Stable moderate right and no significant left neural foraminal stenosis. L3-L4: Postoperative changes. Facet arthropathy. Stable moderate central canal stenosis. Moderate right and no significant left neural foraminal stenosis is stable. L4-L5: Postoperative changes. Facet arthropathy. Stable moderate central canal stenosis. Moderate to severe bilateral neural foraminal stenosis is stable. L5-S1: Disc desiccation height loss. Mild posterior disc bulge with small central disc protrusion. Facet arthropathy and thickening of ligamentum flavum. Mild to moderate central canal stenosis is stable. Severe left neural foraminal stenosis. No significant right neural foraminal stenosis. IMPRESSION: Multilevel degenerative changes of the lumbar spine status post L2 through L5 posterior spinal fixation. Moderate central canal stenosis L3-L4 and L4-5. Severe left neural foraminal stenosis at L5-S1. Moderate to severe bilateral neural foraminal stenosis at L4-5. Dictated by: Jaspal Angeles M.D. on 01/03/2024 at 17:11 Approved by: Jaspal Angeles M.D. on 01/03/2024 at 17:18
== END ==
LOC: CT 14:56
PROVIDERS: Family Provider Nurse Practitioner Family; PCP Nurse Practitioner Family; Referring Provider Neurological Surgery; Visit Provider Neurological Surgery
DX: M51.36 Other intervertebral disc degeneration, lumbar region (principal); M47.816 Spondylosis without myelopathy or radiculopathy, lumbar region; M47.817 Spondylosis without myelopathy or radiculopathy, lumbosacral region; M48.061 Spinal stenosis, lumbar region without neurogenic claudication; M41.9 Scoliosis, unspecified; Z98.1 Arthrodesis status
CPT/HCPCS: 72131; 72158; A9579

== ENCOUNTER 2024-04-01 08:28 | Emergency (ER) | payer OTHER, SELFPAY ==
[2019-08-14 18:00] VITALS: BMI 35.7
[2024-04-01 08:31] VITALS: BP 137/80; PULSE 119; RESP 18; TEMP 36.7; O2SAT 96; BMI 34.7
--- NOTE | 2024-04-01 09:02 | ED.EXTPRO ---
HPI - Extremity Problem General Chief complaint: Extremity Problem,Nontraumatic Stated complaint: Rt wrist swollen, HX of gout Time Seen by Provider: 04/01/24 08:48 Source: patient Mode of arrival: Ambulatory History of Present Illness HPI Narrative: Patient is a 73-year-old male history of hypertension gout presents today with right wrist pain. He thinks it has a gout flare-up. He takes allopurinol daily. He took 3 tablets of colchicine last night and continues to have significant pain and swelling in his right wrist. No numbness or tingling. No fall or injury. He has historically been on prednisone which has helped with his pain. He reports he has also been on indomethacin. No fever or chills. Related Data Home Medications Medication Instructions Recorded Confirmed allopurinol 300 mg tablet 300 mg PO DAILY 08/09/19 03/10/23 amlodipine 10 mg tablet 10 mg PO DAILY 08/09/19 03/10/23 gabapentin 300 mg capsule 600 mg PO TID 08/09/19 03/10/23 hydrochlorothiazide 25 mg tablet 25 mg PO DAILY 08/09/19 03/10/23 levothyroxine 75 mcg capsule 75 mcg PO DAILY 08/09/19 03/10/23 omeprazole 20 mg tablet,delayed 20 mg PO DAILY 08/09/19 03/10/23 release prazosin 2 mg capsule 2 mg PO BID 08/09/19 03/10/23 indomethacin 50 mg capsule 50 mg PO DAILY 03/10/23 03/10/23 Previous Rx's Medication Instructions Recorded oxycodone 5 mg tablet 5 mg PO Q3HR PRN Pain, Moderate 08/15/19 (4-6) #40 tabs hydrocodone 5 mg-acetaminophen 325 1 tab PO BEDTIME PRN pain #10 tabs 07/29/22 mg tablet potassium chloride 20 mEq 20 meq PO DAILY #20 tabs 01/24/23 tablet,extended release ondansetron 4 mg disintegrating 4 mg PO Q6H PRN nausea and 03/10/23 tablet vomiting #7 tabs hydrocodone 5 mg-acetaminophen 325 1 tab PO Q6H PRN pain #10 tabs 04/01/24 mg tablet prednisone 10 mg tablet 10 mg PO DAILY #30 tabs 04/01/24 Allergies Allergy/AdvReac Type Severity Reaction Status Date / Time clindamycin Allergy Severe Rash Verified 04/01/24 08:37 diphenhydramine Allergy Intermediate Hives Verified 04/01/24 08:37 lisinopril AdvReac Severe Cough Verified 04/01/24 08:37 Patient History Medical History (Updated 04/01/24 @ 09:16 by Rosalinda Licona DO) Depression Gout Osteoarthritis Hypothyroid Colonic polyp Diverticulosis GERD (gastroesophageal reflux disease) Hernia HTN (hypertension) Spinal stenosis Scoliosis Hearing impaired Pituitary adenoma (~2013) Influenza A (~01/06/19) Pulmonary nodule Hyperlipidemia Surgical History History of lumbar laminectomy History of total left hip arthroplasty (~2013) Hx of tonsillectomy History of colonoscopy Hx of hernia repair (~2015) Social History household members: none Smoking Status: Former smoker alcohol intake: current substance use type: does not use Smoking Status: Former smoker alcohol intake frequency: holidays/special occasions only Substance Use Type: does not use Exam Initial Vital Signs Initial Vital Signs: Vital Signs Temperature 98.1 F 04/01/24 08:31 Pulse Rate 119 H 04/01/24 08:31 Respiratory Rate 18 04/01/24 08:31 Blood Pressure 137/80 04/01/24 08:31 Pulse Oximetry 96 04/01/24 08:31 Oxygen Delivery Method Room Air 04/01/24 08:31 GENERAL: Patient is 73-year-old male appears uncomfortable CARDIOVASCULAR: peripheral pulses in tact, cap refill <2 sec RESPIRATORY: No respiratory distress, speaks in full sentences without difficulty EXTREMITIES: Normal range of motion, no clubbing or edema. Neurovascularly intact Right wrist swollen minimal erythema distal radial pulse intact able to fingers. Quite tender to touch NEUROLOGICAL: Cranial nerves II through XII grossly intact. Normal gait and speech. SKIN: Warm, dry, no petechiae, no rashes or lesions. Course Orders Ordered: Discontinued Medications Prednisone (Prednisone 20 Mg Tablet) 40 mg PO NOW ONE Stop: 04/01/24 09:08 Last Admin: 04/01/24 09:24 Dose: 40 mg Documented By: HUNTER Vital Signs Vital signs: Vital Signs - 8 hr 04/01/24 08:31 04/01/24 09:33 Temperature 98.1 F Pulse Rate 119 H 96 H Respiratory Rate 18 17 Blood Pressure 137/80 135/83 Pulse Oximetry 96 96 Oxygen Delivery Method Room Air MDM - Extremity (Nontraumatic) MDM Narrative Medical decision making narrative: Patient is 73-year-old male presents today with right wrist pain. History of gout presents like a gout attack. He reports that prednisone has historically done really well for him. I would suggest a prednisone taper for 12 days. Low suspicion for cellulitis no history of injury. No need for imaging at this time. Discharge Plan Departure Patient Disposition: Home Clinical Impression: Gout Instructions: Gout Activity Restrictions/Additional Instructions: *You have been diagnosed with gout *What to do: At this time try prednisone taper *Continue to take medications as directed Prednisone 40 mg once a day for 3 days, 30 mg once a day for 3 days, 20 mg once a day for 3 days, 10 mg once a day for 3 days [place] 1 tablet every 6 hours only if needed for severe pain Resume allopurinol once you are done with prednisone *Follow up with your primary care provider in 2-3 days or call [phone] *Return to ER if you should have increasing pain redness swelling or any new, worsening or concerning symptoms CONTROLLED SUBSTANCE DISCHARGE (Narcotoic/benzodiazepine/Flexeril/Phenergan) 1. You have been prescribed narcotic medications, it does have acetaminophen/Tylenol/paracetamol in it, DO NOT TAKE MORE THAN 4,00mg in 24 hours of Tylenol. TRAMADOL DOES NOT CONTAIN TYLENOL 2. Please understand that we cannot provide further refills of narcotics, benzodiazepines or controlled substances through the ED and her pain management will need to be through your provider. 3. While on these medications you cannot drive or operate heavy machinery. 4. You cannot sign legal documents or perform any duties such as this. 5. As long as you're taking opiate pain medications he should also be taking a stool softener such as Colace, Dulcolax, MiraLAX or prune juice, to help avoid constipation. Prescriptions: New prednisone 10 mg tablet 10 mg PO DAILY Qty: 30 0RF Rx Instructions: day 1-3: 40 mg once a day day 4-6: 30 mg once a day day 7-9: 20 mg once a day day 10-12: 10 mg once a day hydrocodone-acetaminophen 5-325 mg tablet 1 tab PO Q6H PRN (Reason: pain) Qty: 10 0RF No Action hydrocodone-acetaminophen 5-325 mg tablet 1 tab PO BEDTIME PRN (Reason: pain) Qty: 10 0RF amlodipine 10 mg Tablet 10 mg PO DAILY gabapentin 300 mg Capsule 600 mg PO TID Rx Instructions: 600mg bid, 300mg bedtime allopurinol 300 mg Tablet 300 mg PO DAILY hydrochlorothiazide 25 mg Tablet 25 mg PO DAILY prazosin 2 mg Capsule 2 mg PO BID omeprazole 20 mg Tablet,Delayed Release (Dr/Ec) 20 mg PO DAILY levothyroxine 75 mcg Capsule 75 mcg PO DAILY oxycodone 5 mg Tablet 5 mg PO Q3HR PRN (Reason: Pain, Moderate (4-6)) Qty: 40 0RF potassium chloride 20 mEq tablet extended release 20 meq PO DAILY Qty: 20 0RF indomethacin 50 mg capsule 50 mg PO DAILY Rx Instructions: administer with food or milk ondansetron 4 mg tablet,disintegrating 4 mg PO Q6H PRN (Reason: nausea and vomiting) Qty: 7 0RF Referrals: Nils Lott ARNP [Primary Care Provider] - Stand Alone Forms: Patient Portal/API
[2024-04-01] MEDS: predniSONE 20 MG TABLET 40 MG PO (09:24)
[2024-04-01 09:33] VITALS: BP 135/83; PULSE 96; RESP 17; O2SAT 96
== END 2024-04-01 09:34 | disposition home or self-care (01) ==
LOC: ED 09:20
PROVIDERS: Emergency Provider Emergency Medicine; Family Provider Nurse Practitioner Family; PCP Nurse Practitioner Family
DX: M10.9 Gout, unspecified (principal)
CPT/HCPCS: 99283

== ENCOUNTER 2024-04-03 16:11 | Emergency (ER) | payer OTHER, SELFPAY ==
[2019-08-14 18:00] VITALS: BMI 35.7
[2024-04-03 16:13] VITALS: BP 143/77; PULSE 84; RESP 18; TEMP 37; O2SAT 97; BMI 33.6
[2024-04-03 17:52] VITALS: BP 110/64; PULSE 65; RESP 16; O2SAT 95
--- NOTE | 2024-04-03 18:34 | ED.EXTPRO ---
HPI - Extremity Problem <Johnna Yo PA-C - Last Filed: 04/03/24 18:40> General Chief complaint: Extremity Problem,Nontraumatic Stated complaint: RT wrist pain Time Seen by Provider: 04/03/24 16:18 Source: patient Mode of arrival: Ambulatory History of Present Illness HPI Narrative: 73-year-old male with past medical history gout presents to the ED with continued pain from a gout flare. Patient was seen in the ED 2 days ago, diagnosed with a gout flare, started on prednisone and given some Percocet for pain control. Patient states that he is out of his Percocet and that he continues to have pain. He does endorse that his wrist is improving with the prednisone. Patient is seeking pain control for the next few days until the flare is under control. Patient states he is unable to get an [facility] until [facility]. Patient denies any new symptoms including fever, chills, nausea, vomiting, numbness, tingling, weakness. No trauma. Related Data Home Medications Medication Instructions Recorded Confirmed allopurinol 300 mg tablet 300 mg PO DAILY 08/09/19 03/10/23 amlodipine 10 mg tablet 10 mg PO DAILY 08/09/19 03/10/23 gabapentin 300 mg capsule 600 mg PO TID 08/09/19 03/10/23 hydrochlorothiazide 25 mg tablet 25 mg PO DAILY 08/09/19 03/10/23 levothyroxine 75 mcg capsule 75 mcg PO DAILY 08/09/19 03/10/23 omeprazole 20 mg tablet,delayed 20 mg PO DAILY 08/09/19 03/10/23 release prazosin 2 mg capsule 2 mg PO BID 08/09/19 03/10/23 indomethacin 50 mg capsule 50 mg PO DAILY 03/10/23 03/10/23 Previous Rx's Medication Instructions Recorded oxycodone 5 mg tablet 5 mg PO Q3HR PRN Pain, Moderate 08/15/19 (4-6) #40 tabs hydrocodone 5 mg-acetaminophen 325 1 tab PO BEDTIME PRN pain #10 tabs 07/29/22 mg tablet potassium chloride 20 mEq 20 meq PO DAILY #20 tabs 01/24/23 tablet,extended release ondansetron 4 mg disintegrating 4 mg PO Q6H PRN nausea and 03/10/23 tablet vomiting #7 tabs hydrocodone 5 mg-acetaminophen 325 1 tab PO Q6H PRN pain #10 tabs 04/01/24 mg tablet prednisone 10 mg tablet 10 mg PO DAILY #30 tabs 04/01/24 oxycodone-acetaminophen 5 mg-325 1 tab PO Q8H PRN pain 3 days #9 04/03/24 mg tablet (Percocet) tabs Allergies Allergy/AdvReac Type Severity Reaction Status Date / Time clindamycin Allergy Severe Rash Verified 04/01/24 08:37 diphenhydramine Allergy Intermediate Hives Verified 04/01/24 08:37 lisinopril AdvReac Severe Cough Verified 04/01/24 08:37 Review of Systems <Johnna Yo PA-C - Last Filed: 04/03/24 18:40> Constitutional Constitutional: Denies chills, Denies fatigue, Denies fever(s), Denies frequent falls, Denies lethargy and Denies weakness Eyes Eyes: Denies change in vision, Denies eye discharge, Denies irritation and Denies loss of vision ENT Ears, Nose, Mouth, and Throat: Denies change in voice, Denies dizziness, Denies neck pain, Denies sore throat and Denies throat swelling Cardiovascular Cardiovascular: Denies chest pain, Denies irregular heart rhythm, Denies lightheadedness, Denies palpitations, Denies dyspnea, Denies dyspnea on exertion and Denies orthopnea Respiratory Respiratory: Denies cough, Denies dyspnea, Denies dyspnea on exertion and Denies wheezing Gastrointestinal Gastrointestinal: Denies abdominal pain, Denies change in bowel habits, Denies diarrhea, Denies nausea and Denies vomiting Musculoskeletal Musculoskeletal: Denies neck pain and Denies numbness Comments: Right wrist pain, redness Integumentary/Breasts Skin/Breast: Denies pruritus, Denies erythema, Denies rash and Denies wounds Neurologic Neurologic: Denies behavioral changes, Denies confusion, Denies dizziness, Denies frequent falls, Denies loss of vision, Denies numbness and Denies weakness Psychiatric Psychiatric: Denies anxiety, Denies behavioral changes, Denies confusion, Denies depression, Denies homicidal ideation and Denies suicidal ideation Endocrine Endocrine: Denies fatigue, Denies flushing and Denies palpitations Hematologic/Lymphatic Hematologic/Lymphatic: Denies easy bruising Allergic/Immunologic Allergic/Immunologic: Denies urticaria, Denies throat swelling and Denies wheezing Patient History <Johnna Yo PA-C - Last Filed: 04/03/24 18:40> Medical History (Updated 04/03/24 @ 17:50 by Johnna Yo PA-C) Depression Gout Osteoarthritis Hypothyroid Colonic polyp Diverticulosis GERD (gastroesophageal reflux disease) Hernia HTN (hypertension) Spinal stenosis Scoliosis Hearing impaired Pituitary adenoma (~2013) Influenza A (~01/06/19) Pulmonary nodule Hyperlipidemia Surgical History History of lumbar laminectomy History of total left hip arthroplasty (~2013) Hx of tonsillectomy History of colonoscopy Hx of hernia repair (~2015) Social History household members: none Smoking Status: Former smoker alcohol intake: current substance use type: does not use Smoking Status: Former smoker alcohol intake frequency: holidays/special occasions only Substance Use Type: does not use Exam <Johnna Yo PA-C - Last Filed: 04/03/24 18:40> Narrative Exam Narrative: Const General:?cooperative, healthy appearing and comfortable [facility] [place] Head:?normal to inspection Ears:?hearing grossly normal bilaterally Nose:?external nose normal Face and sinus:?normal facial exam and sinuses nontender Mouth:?oral mucosae normal Throat:?posterior oropharynx normal Eyes General:?appearance normal, both eyes and all related structures Neck Neck:?normal visual inspection and no lymphadenopathy noted Resp Effort & Inspection:?normal respiratory effort Auscultation:?clear to auscultation bilaterally Cardio Rate:?regular rate Rhythm:?regular rhythm Musculoskeletal Right wrist appears mildly swollen, erythematous, tender to touch. There is full range of motion. Strength and sensation is intact. Neurovascularly intact. Neuro General:?patient alert, patient awake and patient oriented x3 Initial Vital Signs Initial Vital Signs: Vital Signs Temperature 98.6 F 04/03/24 16:13 Pulse Rate 84 04/03/24 16:13 Respiratory Rate 18 04/03/24 16:13 Blood Pressure 143/77 H 04/03/24 16:13 Pulse Oximetry 97 04/03/24 16:13 Oxygen Delivery Method Room Air 04/03/24 16:13 <Eda Paz DO - Last Filed: 04/05/24 07:19> Initial Vital Signs Initial Vital Signs: Vital Signs Temperature 98.6 F 04/03/24 16:13 Pulse Rate 84 04/03/24 16:13 Respiratory Rate 18 04/03/24 16:13 Blood Pressure 143/77 H 04/03/24 16:13 Pulse Oximetry 97 04/03/24 16:13 Oxygen Delivery Method Room Air 04/03/24 16:13 Course <Johnna Yo PA-C - Last Filed: 04/03/24 18:40> Vital Signs Vital signs: Vital Signs - 8 hr 04/03/24 16:13 04/03/24 17:52 Temperature 98.6 F Pulse Rate 84 65 Respiratory Rate 18 16 Blood Pressure 143/77 H 110/64 Pulse Oximetry 97 95 Oxygen Delivery Method Room Air Room Air <Eda Paz DO - Last Filed: 04/05/24 07:19> Vital Signs Vital signs: Vital Signs - 8 hr 04/03/24 16:13 04/03/24 17:52 Temperature 98.6 F Pulse Rate 84 65 Respiratory Rate 18 16 Blood Pressure 143/77 H 110/64 Pulse Oximetry 97 95 Oxygen Delivery Method Room Air Room Air MDM - Extremity (Nontraumatic) <Johnna Yo PA-C - Last Filed: 04/03/24 18:40> MDM Narrative Medical decision making narrative: 73-year-old male with past medical history gout presents to the ED with continued pain from a gout flare. Patient's right wrist appears to be improving, however is still somewhat erythematous and tender to touch. There is full range of motion. And patient is neurovascularly intact. Will prescribe pain medications for the next 2-3 days. Did advise patient to seek staff counsel with his PCP as soon as possible. ED return precautions discussed with patient. Patient verbalized understanding. Medical records reviewed: Yes Discharge Plan Departure Patient Disposition: Home Clinical Impression: Gout Qualifiers: Gout site: wrist Gout etiology: unspecified cause Chronicity: acute Laterality: right Qualified Code(s): M10.9 - Gout, unspecified Instructions: DI for Gout Activity Restrictions/Additional Instructions: You were evaluated in the ED today for wrist pain. It appears that your wrist is improving well with the prednisone. You are being prescribed pain medication for the couple of days. Please follow-up with your PCP as soon as possible. Return to the ED if you have worsening symptoms. Prescriptions: New oxycodone-acetaminophen [Percocet] 5-325 mg tablet 1 tab PO Q8H PRN (Reason: pain) 3 Days Qty: 9 0RF No Action hydrocodone-acetaminophen 5-325 mg tablet 1 tab PO BEDTIME PRN (Reason: pain) Qty: 10 0RF prednisone 10 mg tablet 10 mg PO DAILY Qty: 30 0RF Rx Instructions: day 1-3: 40 mg once a day day 4-6: 30 mg once a day day 7-9: 20 mg once a day day 10-12: 10 mg once a day hydrocodone-acetaminophen 5-325 mg tablet 1 tab PO Q6H PRN (Reason: pain) Qty: 10 0RF amlodipine 10 mg Tablet 10 mg PO DAILY gabapentin 300 mg Capsule 600 mg PO TID Rx Instructions: 600mg bid, 300mg bedtime allopurinol 300 mg Tablet 300 mg PO DAILY hydrochlorothiazide 25 mg Tablet 25 mg PO DAILY prazosin 2 mg Capsule 2 mg PO BID omeprazole 20 mg Tablet,Delayed Release (Dr/Ec) 20 mg PO DAILY levothyroxine 75 mcg Capsule 75 mcg PO DAILY oxycodone 5 mg Tablet 5 mg PO Q3HR PRN (Reason: Pain, Moderate (4-6)) Qty: 40 0RF potassium chloride 20 mEq tablet extended release 20 meq PO DAILY Qty: 20 0RF indomethacin 50 mg capsule 50 mg PO DAILY Rx Instructions: administer with food or milk ondansetron 4 mg tablet,disintegrating 4 mg PO Q6H PRN (Reason: nausea and vomiting) Qty: 7 0RF Referrals: Nils Lott ARNP [Primary Care Provider] - Stand Alone Forms: Patient Portal/API ED Sign-out <Eda Paz DO - Last Filed: 04/05/24 07:19> Cosign ED Attending Sherif Attestation: I was immediately available in the department for consultation.
== END 2024-04-03 17:54 | disposition home or self-care (01) ==
PROVIDERS: Emergency Provider Student in an Organized Health Care Education/Training Program; Family Provider Nurse Practitioner Family; PCP Nurse Practitioner Family
DX: M10.9 Gout, unspecified (principal)
CPT/HCPCS: 99281

== ENCOUNTER 2024-06-13 07:25 | Emergency (ER) | payer OTHER, SELFPAY ==
[2019-08-14 18:00] VITALS: BMI 35.7
[2024-06-13 07:39] VITALS: BP 138/94; PULSE 106; O2SAT 96
--- NOTE | 2024-06-13 07:41 | ED.GENADULT ---
HPI - General Adult General Chief complaint: Extremity Problem,Nontraumatic Stated complaint: R ankle gout Time Seen by Provider: 06/13/24 07:40 History of Present Illness HPI narrative: Patient is a 74-year-old male with past medical history of hypertension, gout, hyperlipidemia comes into the ED from home for evaluation of right foot pain. States that he has been walking a lot over the past several days, however he also states that he has a history of gout, did take colchicine and allopurinol as prescribed this morning, however he states that due to persistent symptoms decided come into the ED for further evaluation treatment. He is able to stand bear weight ambulate unassisted however slowed secondary to pain. Denies any trauma or falls. He denies any other systemic symptoms such as headache visual disturbances chest pain shortness breath fever chills nausea vomiting abdominal pain or any other GI/ symptoms at this time. States that this does feel similar to his history of gout. Related Data Home Medications Medication Instructions Recorded Confirmed allopurinol 300 mg tablet 300 mg PO DAILY 08/09/19 03/10/23 amlodipine 10 mg tablet 10 mg PO DAILY 08/09/19 03/10/23 gabapentin 300 mg capsule 600 mg PO TID 08/09/19 03/10/23 hydrochlorothiazide 25 mg tablet 25 mg PO DAILY 08/09/19 03/10/23 levothyroxine 75 mcg capsule 75 mcg PO DAILY 08/09/19 03/10/23 omeprazole 20 mg tablet,delayed 20 mg PO DAILY 08/09/19 03/10/23 release prazosin 2 mg capsule 2 mg PO BID 08/09/19 03/10/23 indomethacin 50 mg capsule 50 mg PO DAILY 03/10/23 03/10/23 Previous Rx's Medication Instructions Recorded oxycodone 5 mg tablet 5 mg PO Q3HR PRN Pain, Moderate 08/15/19 (4-6) #40 tabs hydrocodone 5 mg-acetaminophen 325 1 tab PO BEDTIME PRN pain #10 tabs 07/29/22 mg tablet potassium chloride 20 mEq 20 meq PO DAILY #20 tabs 01/24/23 tablet,extended release ondansetron 4 mg disintegrating 4 mg PO Q6H PRN nausea and 03/10/23 tablet vomiting #7 tabs hydrocodone 5 mg-acetaminophen 325 1 tab PO Q6H PRN pain #10 tabs 04/01/24 mg tablet prednisone 10 mg tablet 10 mg PO DAILY #30 tabs 04/01/24 naproxen 500 mg tablet (Naprosyn) 500 mg PO BID 5 days #10 tabs 06/13/24 prednisone 20 mg tablet 20 mg PO BID 5 days #10 tabs 06/13/24 Allergies Allergy/AdvReac Type Severity Reaction Status Date / Time clindamycin Allergy Severe Rash Verified 04/01/24 08:37 diphenhydramine Allergy Intermediate Hives Verified 04/01/24 08:37 lisinopril AdvReac Severe Cough Verified 04/01/24 08:37 Review of Systems Review of Systems Narrative: HEENT: Denies headache, eye drainage, eye irritation, head trauma, sore throat, voice change Cardiovascular: Denies any chest pain, palpitations, shortness of breath, tachycardia Respiratory: Denies any shortness of breath, cough, wheeze, stridor GI/: Denies any abdominal pain, nausea, vomiting, diarrhea, bright red blood per rectum, melanotic stools, urinary frequency, urinary retention, dysuria, hematuria MSK: Denies any muscle pains, swelling, positive for right foot pain Skin: Denies any rashes, lesions, discoloration Neuro: Denies any headache, lightheadedness, dizziness, fainting, weakness Psych: Denies SI/HI Patient History Medical History (Updated 06/13/24 @ 09:12 by Weston Cruz DO) Depression Gout Osteoarthritis Hypothyroid Colonic polyp Diverticulosis GERD (gastroesophageal reflux disease) Hernia HTN (hypertension) Spinal stenosis Scoliosis Hearing impaired Pituitary adenoma (~2013) Influenza A (~01/06/19) Pulmonary nodule Hyperlipidemia Surgical History History of lumbar laminectomy History of total left hip arthroplasty (~2013) Hx of tonsillectomy History of colonoscopy Hx of hernia repair (~2015) Social History household members: none Smoking Status: Former smoker alcohol intake: current substance use type: does not use Smoking Status: Former smoker alcohol intake frequency: holidays/special occasions only Substance Use Type: does not use Exam Narrative Exam Narrative: General: Cooperative, comfortable, well-developed, not in acute distress HEENT: Normocephalic, atraumatic, PERRLA, normal sclera, eyelids normal, Neck: Active full range of motion, atraumatic Chest: Normal to inspection, negative crepitus, no overlying erythema ecchymosis Respiratory: Normal respiratory effort, not in acute respiratory distress, clear to auscultation bilaterally negative cough, wheeze, tachypnea, rhonchi, rales Cardiology: Regular rate rhythm negative gallop, murmur, rubs GI/: Normal to inspection, soft, nonrigid, no tenderness to palpation, exam deferred MSK: Patient neurovascularly intact bilateral upper and lower extremities, there is minor tenderness to palpation over the right anterior aspect of the foot, but no overlying edema, no micro motion tenderness to palpation, no crepitus compartments soft Skin: No rashes lesions noted Neuro: Alert awake oriented x3, moves all 4 extremities spontaneously, cranial nerves intact, able to answer all questions appropriately follows commands appropriately Psych: Cooperative, negative suicidal or homicidal ideations Initial Vital Signs Initial Vital Signs: Vital Signs Pulse Rate 106 H 06/13/24 07:39 Blood Pressure 138/94 H 06/13/24 07:39 Pulse Oximetry 96 06/13/24 07:39 Course Orders Ordered: ED Orders 06/13/24 07:48 XR foot RT min 3V Stat Discontinued Medications Naproxen (Naproxen 250 Mg Tablet) 500 mg PO NOW ONE Stop: 06/13/24 07:49 Last Admin: 06/13/24 08:00 Dose: 500 mg Documented By: VINAYAK Vital Signs Vital signs: Vital Signs - 8 hr 06/13/24 07:39 06/13/24 07:45 Temperature 98.7 F Pulse Rate 106 H 102 H Respiratory Rate 18 Blood Pressure 138/94 H 138/94 H Pulse Oximetry 96 96 Oxygen Delivery Method Room Air Medical Decision Making Differential Diagnosis Differential Diagnosis: Sprain, muscle contusion, gout MDM Narrative Medical decision making narrative: Patient is a 74-year-old male presenting with right foot pain similar to history of gout, states that he had no trauma, on physical exam patient without any signs or symptoms of cellulitis no micro motion tenderness concerning for septic arthritis, is able to stand bear weight ambulate unassisted, symptoms more likely associated with acute gouty flare-up, patient will be treated with NSAIDs and steroids and instructed follow up with primary care. X-ray was negative here in the emergency department Discharge Plan Departure Patient Disposition: Home Clinical Impression: Gout Qualifiers: Gout site: foot Gout etiology: unspecified cause Chronicity: acute Laterality: right Qualified Code(s): M10.9 - Gout, unspecified Prescriptions: New prednisone 20 mg tablet 20 mg PO BID 5 Days Qty: 10 0RF naproxen [Naprosyn] 500 mg tablet 500 mg PO BID 5 Days Qty: 10 0RF No Action hydrocodone-acetaminophen 5-325 mg tablet 1 tab PO BEDTIME PRN (Reason: pain) Qty: 10 0RF prednisone 10 mg tablet 10 mg PO DAILY Qty: 30 0RF Rx Instructions: day 1-3: 40 mg once a day day 4-6: 30 mg once a day day 7-9: 20 mg once a day day 10-12: 10 mg once a day hydrocodone-acetaminophen 5-325 mg tablet 1 tab PO Q6H PRN (Reason: pain) Qty: 10 0RF amlodipine 10 mg Tablet 10 mg PO DAILY gabapentin 300 mg Capsule 600 mg PO TID Rx Instructions: 600mg bid, 300mg bedtime allopurinol 300 mg Tablet 300 mg PO DAILY hydrochlorothiazide 25 mg Tablet 25 mg PO DAILY prazosin 2 mg Capsule 2 mg PO BID omeprazole 20 mg Tablet,Delayed Release (Dr/Ec) 20 mg PO DAILY levothyroxine 75 mcg Capsule 75 mcg PO DAILY oxycodone 5 mg Tablet 5 mg PO Q3HR PRN (Reason: Pain, Moderate (4-6)) Qty: 40 0RF potassium chloride 20 mEq tablet extended release 20 meq PO DAILY Qty: 20 0RF indomethacin 50 mg capsule 50 mg PO DAILY Rx Instructions: administer with food or milk ondansetron 4 mg tablet,disintegrating 4 mg PO Q6H PRN (Reason: nausea and vomiting) Qty: 7 0RF Referrals: Nils Lott ARNP [Primary Care Provider] - Stand Alone Forms: Patient Portal/API
[2024-06-13 07:45] VITALS: BP 138/94; PULSE 102; RESP 18; TEMP 37.1; O2SAT 96; BMI 32.8
--- NOTE | 2024-06-13 07:48 | DI.RAD.S_ITS ---
PROCEDURE: XR FOOT RT MIN 3V INDICATIONS: Pain TECHNIQUE: 3 views of the foot were acquired. COMPARISON: None. FINDINGS: Bones: No fractures or dislocations. No suspicious bony lesions. Soft tissues: No tibiotalar joint effusion. Achilles tendon appears normal. IMPRESSION: No acute bony abnormality. Dictated by: Deepak Couch M.D. on 06/13/2024 at 8:46 Approved by: Deepak Couch M.D. on 06/13/2024 at 8:47
[2024-06-13 08:00] VITALS: PULSE 99; O2SAT 95
[2024-06-13] MEDS: NAPROXEN 250 MG TABLET 500 MG PO (08:00)
[2024-06-13 08:01] VITALS: BP 131/72; PULSE 99; O2SAT 96
[2024-06-13 08:30] VITALS: BP 139/84; PULSE 77; O2SAT 98
[2024-06-13 09:00] VITALS: BP 150/82; PULSE 78; O2SAT 96
== END 2024-06-13 09:23 | disposition home or self-care (01) ==
PROVIDERS: Emergency Provider Student in an Organized Health Care Education/Training Program; Family Provider Nurse Practitioner Family; PCP Nurse Practitioner Family
DX: M10.9 Gout, unspecified (principal)
CPT/HCPCS: 73630; 99283

== ENCOUNTER 2024-06-29 10:13 | Emergency (ER) | payer OTHER, SELFPAY ==
[2019-08-14 18:00] VITALS: BMI 35.7
[2024-06-29 10:25] VITALS: BP 123/83; PULSE 77; RESP 16; TEMP 36.2; O2SAT 96; BMI 32.8
--- NOTE | 2024-06-29 12:06 | ED_ITS ---
HPI - Extremity Problem <Scooter CJ George - Last Filed: 06/29/24 12:13> General Chief complaint: Extremity Problem,Nontraumatic Stated complaint: attack of gout on right hand Time Seen by Provider: 06/29/24 11:23 History of Present Illness HPI Narrative: 74-year-old male, former smoker with history of gout, presents to the emergency department with worsening right hand pain. Patient states that the MCP joint of the right middle finger has had increased redness, warmth and swelling over last couple of days. Patient does have colchicine at home, used that as directed, but has not noticed any improvement. Patient was seen in the emergency department a couple of weeks ago for a gout flare of his right ankle that was resolved with naproxen and prednisone. Patient is unsure of why he keeps getting these gout flares as he has cut out all meet and alcohol from his diet. Patient reports that this feels identical to his previous gout flares. Related Data Home Medications Medication Instructions Recorded Confirmed allopurinol 300 mg tablet 300 mg PO DAILY 08/09/19 03/10/23 amlodipine 10 mg tablet 10 mg PO DAILY 08/09/19 03/10/23 gabapentin 300 mg capsule 600 mg PO TID 08/09/19 03/10/23 hydrochlorothiazide 25 mg tablet 25 mg PO DAILY 08/09/19 03/10/23 levothyroxine 75 mcg capsule 75 mcg PO DAILY 08/09/19 03/10/23 omeprazole 20 mg tablet,delayed 20 mg PO DAILY 08/09/19 03/10/23 release prazosin 2 mg capsule 2 mg PO BID 08/09/19 03/10/23 indomethacin 50 mg capsule 50 mg PO DAILY 03/10/23 03/10/23 Previous Rx's Medication Instructions Recorded oxycodone 5 mg tablet 5 mg PO Q3HR PRN Pain, Moderate 08/15/19 (4-6) #40 tabs hydrocodone 5 mg-acetaminophen 325 1 tab PO BEDTIME PRN pain #10 tabs 07/29/22 mg tablet potassium chloride 20 mEq 20 meq PO DAILY #20 tabs 01/24/23 tablet,extended release ondansetron 4 mg disintegrating 4 mg PO Q6H PRN nausea and 03/10/23 tablet vomiting #7 tabs hydrocodone 5 mg-acetaminophen 325 1 tab PO Q6H PRN pain #10 tabs 04/01/24 mg tablet prednisone 10 mg tablet 10 mg PO DAILY #30 tabs 04/01/24 naproxen 500 mg tablet 500 mg PO BID Gout flare 5 days 06/29/24 #10 tabs prednisone 20 mg tablet 20 mg PO BID Gout flare 5 days #10 06/29/24 tabs Allergies Allergy/AdvReac Type Severity Reaction Status Date / Time clindamycin Allergy Severe Rash Verified 04/01/24 08:37 diphenhydramine Allergy Intermediate Hives Verified 04/01/24 08:37 lisinopril AdvReac Severe Cough Verified 04/01/24 08:37 Review of Systems <CJ Ybarra - Last Filed: 06/29/24 12:13> Review of Systems Narrative: Narrative: See HPI. GENERAL: Denies chills, fatigue, fever, sweats. HEENT: Denies sinus pain, ear pain, sore throat, difficulty swallowing, dizziness. RESPIRATORY: Denies dyspnea, cough, wheezing, sputum. CARDIOVASCULAR: Denies chest pain, palpitations, edema. GASTROINTESTINAL: Denies nausea, vomiting, abdominal pain, diarrhea, constipation. : Denies dysuria, frequency, incontinence, hematuria, urinary retention, flank pain. MSK: Denies weakness. Endorses right hand pain. SKIN: Denies rash, skin lesions, or pruritis. NEUROLOGIC: Denies weakness, dizziness, headache, numbness, confusion. PSYCHIATRIC: No concerning psychosocial issues. Patient History <CJ Ybarra - Last Filed: 06/29/24 12:13> Medical History Depression Gout Osteoarthritis Hypothyroid Colonic polyp Diverticulosis GERD (gastroesophageal reflux disease) Hernia HTN (hypertension) Spinal stenosis Scoliosis Hearing impaired Pituitary adenoma (~2013) Influenza A (~01/06/19) Pulmonary nodule Hyperlipidemia Surgical History History of lumbar laminectomy History of total left hip arthroplasty (~2013) Hx of tonsillectomy History of colonoscopy Hx of hernia repair (~2015) Social History household members: none Smoking Status: Former smoker alcohol intake: current substance use type: does not use Smoking Status: Former smoker alcohol intake frequency: holidays/special occasions only Substance Use Type: does not use Exam <CJ Ybarra - Last Filed: 06/29/24 12:13> Narrative Exam Narrative: Exam Narrative: GENERAL: This is a well-nourished, well-developed patient, in no acute distress HEAD: Atraumatic. Normocephalic. ENT: Nose without bleeding, purulent drainage. Airway patent. RESPIRATORY: Respiratory rate and effort are normal. MSK: Moves all extremities. Normal range of motion, no clubbing or edema. Neurovascularly intact. NEURO: A&O x 3. SKIN: Warm, dry, no rashes or lesions noted. HAND: There is redness, warmth and swelling, but no bruising or asymmetry. There is no tenderness to general palpation. Sensation grossly intact. Radial pulse intact. There is no snuff-box tenderness. Patient is able to pronate and supinate without pain. Range of motion is full and without pain. Bulb Grader is strong and equivalent. Inter-digital strength is intact. Initial Vital Signs Initial Vital Signs: Vital Signs Temperature 97.1 F L 06/29/24 10:25 Pulse Rate 77 06/29/24 10:25 Respiratory Rate 16 06/29/24 10:25 Blood Pressure 123/83 06/29/24 10:25 Pulse Oximetry 96 06/29/24 10:25 Oxygen Delivery Method Room Air 06/29/24 10:25 Reviewed <Bull Mott MD - Last Filed: 06/29/24 20:51> Initial Vital Signs Initial Vital Signs: Vital Signs Temperature 97.1 F L 06/29/24 10:25 Pulse Rate 77 06/29/24 10:25 Respiratory Rate 16 06/29/24 10:25 Blood Pressure 123/83 06/29/24 10:25 Pulse Oximetry 96 06/29/24 10:25 Oxygen Delivery Method Room Air 06/29/24 10:25 Course <CJ Ybarra - Last Filed: 06/29/24 12:13> Vital Signs Vital signs: Vital Signs - 8 hr 06/29/24 10:25 Temperature 97.1 F L Pulse Rate 77 Respiratory Rate 16 Blood Pressure 123/83 Pulse Oximetry 96 Oxygen Delivery Method Room Air <Bull Mott MD - Last Filed: 06/29/24 20:51> Vital Signs Vital signs: Vital Signs - 8 hr 06/29/24 10:25 Temperature 97.1 F L Pulse Rate 77 Respiratory Rate 16 Blood Pressure 123/83 Pulse Oximetry 96 Oxygen Delivery Method Room Air MDM - Extremity (Nontraumatic) <CJ Ybarra - Last Filed: 06/29/24 12:13> Differential Diagnosis Differential diagnosis: Likely gout MDM Narrative Medical decision making narrative: 74-year-old male with a gout flare of his right hand. Assessment was encouraging and clinical findings were suggestive of a gout flare. Patient has had these in the past and feels identical. Patient is adamant that there was no trauma to the area and declined a x-ray at this time. Because patient had good results with prednisone and naproxen last time, will represcribe a five-day course of each. Discussed plan of care and worsening symptoms that would n ecessitate a return visit. Patient verbalized understanding and was agreeable with course of action. Discharge Plan Departure Patient Disposition: Home Clinical Impression: Gout Qualifiers: Gout site: hand Gout etiology: unspecified cause Chronicity: unspecified Laterality: right Qualified Code(s): M10.9 - Gout, unspecified Instructions: DI for Gout Activity Restrictions/Additional Instructions: *You have been diagnosed with a gout flare. I am sorry to hear that you are having another gout flare. Since you had good success last time with the predni sone and naproxen, we will represcribe those medications. As discovered in the ER, a cool compress or ice to the affected area may help. As we discussed, if symptoms do not improve, and/or worsen, follow up in the walk-in clinic or return to the emergency department for possible re-evaluation for cellulitis. *What to do: *Please continue to take your regular medications as directed. [ x] New medication prescriptions sent to your pharmacy: [[facility]] [ ] New medication written as a paper prescription [ ] No new medications given *Please follow up with your primary care provider in 2-3 days, call for an appointment. Let them know you were seen in the Emergency Department and that we ask that you be seen in follow up. We will electronically transmit a record of today's note if your PCP is in our system *If you do not have a primary care provider please contact the [facility] Resource line at [phone]. They will ask some questions about your medical history and help get you set up with a doctor in the community. ? Return to ER if you should have any new, worsening or concerning symptoms, such as worsening pain, severe headache, confusion, chest pain, difficulty breathing, fever greater than 101 F, shaking chills, persistent vomiting to the point that you cannot drink fluids, or other new or worsening symptoms. Prescriptions: New prednisone 20 mg tablet 20 mg PO BID 5 Days Qty: 10 0RF naproxen 500 mg tablet 500 mg PO BID 5 Days Qty: 10 0RF No Action hydrocodone-acetaminophen 5-325 mg tablet 1 tab PO BEDTIME PRN (Reason: pain) Qty: 10 0RF prednisone 10 mg tablet 10 mg PO DAILY Qty: 30 0RF Rx Instructions: day 1-3: 40 mg once a day day 4-6: 30 mg once a day day 7-9: 20 mg once a day day 10-12: 10 mg once a day hydrocodone-acetaminophen 5-325 mg tablet 1 tab PO Q6H PRN (Reason: pain) Qty: 10 0RF amlodipine 10 mg Tablet 10 mg PO DAILY gabapentin 300 mg Capsule 600 mg PO TID Rx Instructions: 600mg bid, 300mg bedtime allopurinol 300 mg Tablet 300 mg PO DAILY hydrochlorothiazide 25 mg Tablet 25 mg PO DAILY prazosin 2 mg Capsule 2 mg PO BID omeprazole 20 mg Tablet,Delayed Release (Dr/Ec) 20 mg PO DAILY levothyroxine 75 mcg Capsule 75 mcg PO DAILY oxycodone 5 mg Tablet 5 mg PO Q3HR PRN (Reason: Pain, Moderate (4-6)) Qty: 40 0RF potassium chloride 20 mEq tablet extended release 20 meq PO DAILY Qty: 20 0RF indomethacin 50 mg capsule 50 mg PO DAILY Rx Instructions: administer with food or milk ondansetron 4 mg tablet,disintegrating 4 mg PO Q6H PRN (Reason: nausea and vomiting) Qty: 7 0RF Referrals: Issac Marrufo ARNP [Primary Care Provider] - Stand Alone Forms: Patient Portal/API ED Sign-out <Bull Mott MD - Last Filed: 06/29/24 20:51> Cosign ED Attending Abdifatahature Attestation: I was immediately available in the department for consultation. This documen tation has been reviewed. Supervised by Bull Mott MD
[2024-06-29 12:16] VITALS: BP 124/81; PULSE 63; RESP 19; TEMP 36.5; O2SAT 97
== END 2024-06-29 12:16 | disposition home or self-care (01) ==
PROVIDERS: Emergency Provider Registered Nurse; Family Provider Nurse Practitioner Family; PCP Nurse Practitioner Family
DX: M10.9 Gout, unspecified (principal)
CPT/HCPCS: 99281; 99283

== ENCOUNTER → 2024-07-06 14:00 | Outpatient (CLI) | payer OTHER, SELFPAY ==
[2019-08-14 18:00] VITALS: BMI 35.7
[2024-07-06 16:33] LABS: Alanine Aminotransferase 19 IU/L (<50); Albumin 3.5 g/dL (3.5-5.0); Albumin Globulin Ratio 1.5 (1.0-2.8); Alkaline Phosphatase 59 U/L (38-126); Aspartate Aminotransferase 21 IU/L (17-59); Bilirubin Total 0.6 mg/dL (0.2-1.3); Bilirubin Unconjugated 0.3 mg/dL (0.0-1.1); Globulin 2.4 g/dL (1.7-4.1); HEMOLYSIS 50 (0-50); Total Protein 5.9 g/dL (6.3-8.2)
== END ==
PROVIDERS: Family Provider Nurse Practitioner Family; PCP Nurse Practitioner Family; Referring Provider Podiatrist; Visit Provider Podiatrist
DX: B35.1 Tinea unguium (principal)
CPT/HCPCS: 36415; 80076

== ENCOUNTER → 2024-09-11 15:42 | Outpatient (CLI) | payer OTHER, SELFPAY ==
[2019-08-14 18:00] VITALS: BMI 35.7
--- NOTE | 2024-09-11 15:43 | DI.MRI.S_ITS ---
PROCEDURE: MR LUMBAR SPINE WO CON INDICATIONS: intervertebral disc degeneration TECHNIQUE: Noncontrast sagittal T1 spin echo and T2 fast echo, sagittal STIR, and T2 fast spin echo through the lumbar spine. In cases with scoliosis, additional coronal T2 fast spin echo may be performed. COMPARISON: [facility], MR, MR LUMBAR SPINE WO/W CON, 01/03/2024, 15:55. [facility], MR, MR LUMBAR SPINE WO CON, 08/28/2022, 13:42. FINDINGS: Image quality: Excellent In keeping with prior nomenclature, there is a partially lumbarized S1. The last well-formed disc space is considered as L5-S1. Posterior fusion instrumentation with interbody spacer at L2-L5. Moderate levoscoliosis of the lumbar spine, centered at L1-2. Grade 1 anterolisthesis of L5 on S1. Multiple small Schmorl's nodes of the lower thoracic spine. Mild anterior compression deformity of T12, without marrow edema, chronic. Mild fibrovascular end plate change at T12-L1. Conus terminates at the level of L1, and is unremarkable. Right neural foraminal stenosis: None. Left neural foraminal stenosis: Mild at L4-5, moderate at L5-S1. Axial images: T12-L1: Mild bilateral facet arthropathy. Disc bulge. No central canal stenosis. L1-2: No central canal stenosis. L2-3: No central canal stenosis. L3-4: No central canal stenosis. L4-5: Disc bulge. Mild bilateral facet arthropathy. Mild central canal stenosis. L5-S1: Mild bilateral facet arthropathy. Mild disc bulge. No central canal stenosis. Visualized sacrum is intact. Bridging osteophyte of the left sacroiliac joint. No abdominal aortic aneurysm. Retroperitoneal lymphadenopathy, previously better visualized on CT chest, abdomen pelvis on 04/27/2024. Punctate left renal cyst. IMPRESSION: 1. Postprocedure changes as described above. 2. Multilevel degenerative changes of the lumbar spine, most pronounced at L5-S1, where there is moderate left neural foraminal stenosis., grossly unchanged. 3. Mild central canal stenosis at L4-5, unchanged. Dictated by: Swathi Hackett M.D. on 09/11/2024 at 17:39 Approved by: Swathi Hackett M.D. on 09/11/2024 at 17:50
== END ==
PROVIDERS: Family Provider Nurse Practitioner Family; PCP Nurse Practitioner Family; Referring Provider Neurological Surgery; Visit Provider Neurological Surgery
DX: M51.379 Other intervertebral disc degeneration, lumbosacral region without mention of lumbar back pain or lower extremity pain (principal); M51.369 Other intervertebral disc degeneration, lumbar region without mention of lumbar back pain or lower extremity pain; M47.817 Spondylosis without myelopathy or radiculopathy, lumbosacral region; M47.816 Spondylosis without myelopathy or radiculopathy, lumbar region; M48.07 Spinal stenosis, lumbosacral region; M48.061 Spinal stenosis, lumbar region without neurogenic claudication; Z98.1 Arthrodesis status
CPT/HCPCS: 72148

== ENCOUNTER → 2024-09-13 13:48 | Outpatient (CLI) | payer OTHER, SELFPAY ==
[2019-08-14 18:00] VITALS: BMI 35.7
[2024-09-18 16:36] LABS: Ca oxalate monohydr 100 % (.); Size 5x4 mm (.)
== END ==
PROVIDERS: Family Provider Nurse Practitioner Family; PCP Nurse Practitioner Family; Visit Provider Urology
DX: Z87.442 Personal history of urinary calculi (principal)
CPT/HCPCS: 82365

== ENCOUNTER → 2024-10-01 13:41 | Outpatient (CLI) | payer OTHER, SELFPAY ==
[2019-08-14 18:00] VITALS: BMI 35.7
--- NOTE | 2024-10-01 13:43 | DI.CT.S_ITS ---
PROCEDURE: CT ABDOMEN PELVIS WO/W CON INDICATIONS: Evaluate kidney stones and renal lesion TECHNIQUE: Optional 5 mm thick noncontrast images acquired from the diaphragm to the symphysis pubis. After the administration of intravenous contrast, 5 mm thick images acquired from the diaphragm to the symphysis pubis after a 10-minute delay. 2 mm thick coronal and sagittal reformats were then performed of the kidneys and ureters. For radiation dose reduction, the following was used: automated exposure control, adjustment of mA and/or kV according to patient size. COMPARISON: [facility], CT, CT CHEST ABDOMEN PELVIS WITH CONTRAST, 04/27/2024, 14:22. FINDINGS: Image quality: Diagnostic. Kidneys and Ureters: Both kidneys are normal size. There are two nonobstructing stones in the right intrarenal collecting system mid to lower pole. The larger measures 5 mm. Hounsfield units approximately 400. No left intrarenal calculi. Symmetric enhancement. No solid enhancing mass. No hydronephrosis. There is a 3 mm calcification in the proximal left ureter which is nonobstructive. No right ureteral calcifications or hydroureter. Bladder: Bladder wall thickness is normal. No calcified bladder stones. There is mixing artifact postcontrast. No definite intraluminal filling defects. OTHER: Lower chest: Clear lung bases. Small hiatal hernia. Liver: No solid mass. Gallbladder: Numerous dependently layering, granular gallstones and hyperdense bile. Biliary ducts: No biliary dilation. Pancreas: Normal size and morphology without visible ductal dilatation or inflammation. Spleen: Size is within normal limits. Adrenal Glands: No adrenal nodules. Stomach and Bowel: Stomach and small bowel loops are normal caliber. Normal appendix. Scattered, mild colonic diverticula. Peritoneum: No abnormal intraperitoneal fluid. No free air. Ventral Wall: No hernia. Abdominal Nodes: Numerous retroperitoneal lymph nodes, the largest aortocaval node measures 2.0 cm short axis. Additionally, there is portacaval adenopathy. No mesenteric adenopathy. Vessels: The abdominal aorta, IVC, and portal vein are of normal caliber. Mild abdominal aortic atherosclerotic calcification. PELVIS: Pelvic Organs: Mild prostatomegaly with coarse calcification. Pelvic Nodes: Bilateral pelvic adenopathy including common iliac, pelvic sidewall, and external iliac chain nodes. Mildly prominent inguinal lymph nodes. Miscellaneous: Surgical changes of probable prior hernia repair. Bones: Left hip arthroplasty. Multilevel surgical hardware in the lumbar spine. Moderate levoscoliosis. Compression deformity of T11. IMPRESSION: Nonobstructing proximal left ureteral calculus is 3 mm. Nonobstructing intrarenal calculi on the right. Retroperitoneal and pelvic adenopathy of unrelated etiology. Extent and size of lymph nodes are not significantly changed since 04/27/24. Cholelithiasis. Dictated by: Yadi Cardenas M.D. on 10/02/2024 at 11:28 Approved by: Yadi Cardenas M.D. on 10/02/2024 at 11:40
[2024-10-01 14:05] LABS: Estimated Glomerular Filt Rate > 60 mL/min (>60)
== END ==
PROVIDERS: Radiology Diagnostic Radiology; Family Provider Nurse Practitioner Family; PCP Nurse Practitioner Family; Referring Provider Urology; Visit Provider Urology
DX: N20.0 Calculus of kidney (principal); N28.9 Disorder of kidney and ureter, unspecified; N20.1 Calculus of ureter; R59.0 Localized enlarged lymph nodes; K80.20 Calculus of gallbladder without cholecystitis without obstruction; K57.90 Diverticulosis of intestine, part unspecified, without perforation or abscess without bleeding; K44.9 Diaphragmatic hernia without obstruction or gangrene; N40.0 Benign prostatic hyperplasia without lower urinary tract symptoms; I70.0 Atherosclerosis of aorta; M41.9 Scoliosis, unspecified; Z96.642 Presence of left artificial hip joint
CPT/HCPCS: 36415; 74178; 82565; Q9967

== ENCOUNTER → 2024-10-04 16:12 | Outpatient (CLI) | payer OTHER, SELFPAY ==
[2019-08-14 18:00] VITALS: BMI 35.7
--- NOTE | 2024-10-04 16:14 | DI.RAD.S_ITS ---
PROCEDURE: XR KUB INDICATIONS: Evaluate right-sided stones TECHNIQUE: One view of the abdomen acquired. COMPARISON: [facility], CT, CT ABDOMEN PELVIS WO/W CON, 10/01/2024, 14:44. FINDINGS: Surgical changes and devices: L2-L5 pedicle screw fixation. Intervertebral body spacers. Clips in the pelvis. Left hip arthroplasty. Bowel: Bowel gas pattern is normal. Soft tissues: Small kidney stone in the proximal left ureter is in seen. Right kidney stones are not well seen. No suspicious abdominal calcifications. Visualized solid organ contours appear normal in size. Bones: No suspicious bony lesions. Scoliosis. IMPRESSION: 1. Left ureter small kidney stone appears unchanged in the short-term interval. 2. Right kidney previously seen small stones x2 are not well evaluated due to their small size and overlapping bowel. Follow-up CT KUB may be helpful further Dictated by: Cecilio Beltran M.D. on 10/04/2024 at 20:17 Approved by: Cecilio Beltran M.D. on 10/04/2024 at 20:22
== END ==
PROVIDERS: Family Provider Nurse Practitioner Family; PCP Nurse Practitioner Family; Referring Provider Urology; Visit Provider Urology
DX: N20.2 Calculus of kidney with calculus of ureter (principal); Z86.018 Personal history of other benign neoplasm; Z86.39 Personal history of other endocrine, nutritional and metabolic disease; E83.52 Hypercalcemia; Z85.72 Personal history of non-Hodgkin lymphomas; Z85.6 Personal history of leukemia
CPT/HCPCS: 74018; 99214

== ENCOUNTER → 2024-11-19 10:43 | Outpatient (CLI) | payer OTHER, SELFPAY ==
[2019-08-14 18:00] VITALS: BMI 35.7
--- NOTE | 2024-11-19 10:45 | DI.RAD.S_ITS ---
PROCEDURE: XR KUB INDICATIONS: kidney stones TECHNIQUE: One view of the abdomen acquired. COMPARISON: [facility], CT, CT ABDOMEN PELVIS WO/W CON, 10/01/2024, 14:44. [facility], CR, XR KUB, 10/04/2024, 16:21. FINDINGS: Surgical changes and devices: None. Bowel: Bowel gas pattern is normal. Soft tissues: No suspicious abdominal calcifications. Visualized solid organ contours appear normal in size. Bones: Convex left scoliosis, with surgical fusion of the lumbar spine. Left hip arthroplasty. IMPRESSION: Resolved left-sided urolithiasis. Dictated by: Rocael Garcia M.D. on 11/19/2024 at 14:42 Approved by: Rocael Garcia M.D. on 11/19/2024 at 14:43
== END ==
PROVIDERS: Family Provider Nurse Practitioner Family; PCP Nurse Practitioner Family; Referring Provider Urology; Visit Provider Urology
DX: N20.0 Calculus of kidney (principal)
CPT/HCPCS: 74018

== ENCOUNTER → 2024-11-20 13:19 | Outpatient (CLI) | payer OTHER, SELFPAY ==
[2019-08-14 18:00] VITALS: BMI 35.7
[2024-11-20 14:07] LABS: Calcium 10.8 mg/dL (8.4-10.2); Phosphorous 3.4 mg/dL (2.3-3.7); Uric Acid 2.8 mg/dL (3.5-8.5)
[2024-11-22 09:39] LABS: Calcium 10.4 mg/dL (8.6-10.2); Parathyroid Hormone, Intact 52 pg/mL (15-65)
== END ==
PROVIDERS: Family Provider Nurse Practitioner Family; PCP Nurse Practitioner Family; Referring Provider Urology; Visit Provider Urology
DX: N20.2 Calculus of kidney with calculus of ureter (principal); E83.52 Hypercalcemia
CPT/HCPCS: 36415; 81002; 82310; 83970; 84100; 84550; 99213

== ENCOUNTER → 2024-11-30 09:37 | Outpatient (CLI) | payer OTHER, SELFPAY ==
[2019-08-14 18:00] VITALS: BMI 35.7
[2024-12-01 10:08] LABS: Calcium 10.6 mg/dL (8.6-10.2); Parathyroid Hormone, Intact 62 pg/mL (15-65)
== END ==
PROVIDERS: Family Provider Nurse Practitioner Family; PCP Nurse Practitioner Family; Referring Provider Urology; Visit Provider Urology
DX: N20.0 Calculus of kidney (principal); N20.1 Calculus of ureter
CPT/HCPCS: 36415; 82310; 83970

== ENCOUNTER 2024-12-22 12:59 | Emergency (ER) | payer OTHER, SELFPAY ==
[2019-08-14 18:00] VITALS: BMI 35.7
[2024-12-22 13:16] VITALS: BP 141/85; PULSE 84; RESP 20; TEMP 36.6; O2SAT 97; BMI 34.4
--- NOTE | 2024-12-22 17:22 | ED.EAR ---
HPI - Ear Problem General Chief complaint: Ear Stated complaint: Right Ear ache Time Seen by Provider: 12/22/24 13:53 Source: patient Mode of arrival: Ambulatory History of Present Illness HPI Narrative: 74yo male wears bilateral hearing aides, complains of non traumatraumatic right ear pain, no drainage. No fevers. No headache. No ear canal instrumentation,no retained foreign body suspected. Related Data Home Medications Medication Instructions Recorded Confirmed allopurinol 300 mg tablet 300 mg PO DAILY 08/09/19 11/20/24 amlodipine 10 mg tablet 10 mg PO DAILY 08/09/19 11/20/24 gabapentin 300 mg capsule 600 mg PO TID 08/09/19 11/20/24 levothyroxine 75 mcg capsule 75 mcg PO DAILY 08/09/19 11/20/24 omeprazole 20 mg tablet,delayed 20 mg PO DAILY 08/09/19 11/20/24 release cholecalciferol (vitamin D3) 10 10 mcg PO DAILY 09/13/24 11/20/24 mcg (400 unit) capsule semaglutide (weight loss) 2.4 2.4 mg SUBCUT QWEEK 09/13/24 11/20/24 mg/0.75 mL subcutaneous pen injector Previous Rx's Medication Instructions Recorded potassium chloride 20 mEq 20 meq PO DAILY #20 tabs 01/24/23 tablet,extended release tamsulosin 0.4 mg capsule 0.8 mg (2 x 0.4 mg) PO DAILY #60 10/09/24 caps amoxicillin 875 mg tablet 875 mg PO BID dental infection 10 12/22/24 days #20 tabs Allergies Allergy/AdvReac Type Severity Reaction Status Date / Time clindamycin Allergy Severe Rash Verified 11/20/24 13:03 diphenhydramine Allergy Intermediate Hives Verified 11/20/24 13:03 lisinopril AdvReac Severe Cough Verified 11/20/24 13:03 Patient History Medical History (Updated 12/22/24 @ 17:33 by Bull Mott MD) Left ureteral calculus Right kidney stone Hypercalcemia History of pituitary adenoma History of hypogonadism History of lymphoma History of leukemia History of gout Lesion of left [place] kidney Kidney stones Hx of renal calculi History of arthritis Depression Gout Osteoarthritis Hypothyroid Colonic polyp Diverticulosis GERD (gastroesophageal reflux disease) Hernia HTN (hypertension) Spinal stenosis Scoliosis Hearing impaired Pituitary adenoma (~2013) Influenza A (~01/06/19) Pulmonary nodule Hyperlipidemia Surgical History History of left shoulder replacement History of lumbar laminectomy History of total left hip arthroplasty (~2013) Hx of tonsillectomy History of colonoscopy Hx of hernia repair (~2015) Family History Father Cancer Diabetes mellitus Brother Eczema UTI (urinary tract infection) Kidney stones Sister Hyperlipidemia Hypertension Thyroid disorder Social History marital status: household members: none Smoking Status: Former smoker alcohol intake: former substance use type: does not use caffeine: Yes Type(s) of exercise: walking frequency: 3-4 times per week duration: 60-90 minutes/day Smoking Status: Former smoker alcohol intake frequency: holidays/special occasions only Exam Narrative Exam Narrative: GENERAL: Well-developed patient, in mild distress. HEAD: Atraumatic. Normocephalic. EYES: Pupils equal round and reactive. Extraocular motions intact. No scleral icterus. No injection or drainage. ENT: Nose without bleeding, purulent drainage. Right TM with dullness and inferior bulging, EAC clear. Left TM and EAC normal. Throat without erythema, tonsillar hypertrophy or exudate. Airway patent. NECK: Trachea midline. Non tender CARDIOVASCULAR: Regular rate and rhythm without murmurs, gallops, or rubs. RESPIRATORY: Clear to auscultation. Breath sounds equal bilaterally. No wheezes, rales, or rhonchi. GASTROINTESTINAL: Abdomen soft, non-tender, nondistended. EXTREMITIES: No edema or joint tenderness. BACK: Nontender without deformity or crepitance. No flank tenderness. NEURO: AOx3. Motor functions grossly nonfocal SKIN: No rash or erythema of visible areas Initial Vital Signs Initial Vital Signs: Vital Signs Temperature 97.9 F 12/22/24 13:16 Pulse Rate 84 12/22/24 13:16 Respiratory Rate 20 12/22/24 13:16 Blood Pressure 141/85 H 12/22/24 13:16 Pulse Oximetry 97 12/22/24 13:16 Oxygen Delivery Method Room Air 12/22/24 13:16 Course Orders Ordered: Discontinued Medications Amoxicillin (Amoxicillin 250 Mg Capsule) 1,000 mg PO NOW ONE Stop: 12/22/24 17:30 Last Admin: 12/22/24 17:36 Dose: 1,000 mg Documented By: RB Vital Signs Vital signs: Vital Signs - 8 hr 12/22/24 17:43 Temperature 98.1 F Pulse Rate 80 Respiratory Rate 18 Blood Pressure 131/70 Pulse Oximetry 99 Oxygen Delivery Method Room Air Medical Decision Making MDM Narrative Medical decision making narrative: Right ear pain, acute right supperative OM on exam, trial of oral AmoxiAmoxicillin. First dose given, then Rx further oral course sent to his pharmacy. Discharge Plan Departure Patient Disposition: Home Clinical Impression: Acute right otitis media Activity Restrictions/Additional Instructions: Right-sided nontraumatic ear pain without drainage, history of hearing aids, no fluid from either ear. Right eardrum with some dullness and inferior bulging, possible early/developing otitis media. First dose of antibiotic amoxicillin prescribed for in the emergency department, prescription sent to your pharmacy for further antibiotic course. Take antibiotics as directed. Recheck ear exam if not improving in the next few days with your regular doctor. Take Tylenol as needed for fever or pain control. Return earlier to this/nearest emergency department for any change worsening symptoms or any concerns prior. Thank you for allowing our team to evaluate you today. Prescriptions: New amoxicillin 875 mg tablet 875 mg PO BID 10 Days Qty: 20 0RF No Action amlodipine 10 mg Tablet 10 mg PO DAILY gabapentin 300 mg Capsule 600 mg PO TID Rx Instructions: 600mg bid, 300mg bedtime allopurinol 300 mg Tablet 300 mg PO DAILY omeprazole 20 mg Tablet,Delayed Release (Dr/Ec) 20 mg PO DAILY levothyroxine 75 mcg Capsule 75 mcg PO DAILY potassium chloride 20 mEq tablet extended release 20 meq PO DAILY Qty: 20 0RF semaglutide (weight loss) 2.4 mg/0.75 mL pen injector 2.4 mg SUBCUT QWEEK cholecalciferol (vitamin D3) 10 mcg (400 unit) capsule 10 mcg PO DAILY tamsulosin 0.4 mg capsule 0.8 mg PO DAILY Qty: 60 12RF Referrals: Issac Marrufo ARNP [Primary Care Provider] - Stand Alone Forms: Patient Portal/API/Survey
[2024-12-22] MEDS: AMOXICILLIN 250 MG CAPSULE 1000 MG PO (17:36)
[2024-12-22 17:43] VITALS: BP 131/70; PULSE 80; RESP 18; TEMP 36.7; O2SAT 99
== END 2024-12-22 17:44 | disposition home or self-care (01) ==
PROVIDERS: Emergency Provider Emergency Medicine; Family Provider Nurse Practitioner Family; PCP Nurse Practitioner Family
DX: H66.001 Acute suppurative otitis media without spontaneous rupture of ear drum, right ear (principal); Z87.891 Personal history of nicotine dependence
CPT/HCPCS: 99283

== ENCOUNTER → 2025-01-30 12:33 | Outpatient (CLI) | payer OTHER, SELFPAY ==
[2019-08-14 18:00] VITALS: BMI 35.7
[2025-01-30 15:48] LABS: Vitamin D 25 Hydroxy (D3) 45.5 ng/mL (30.0-100.0)
== END ==
PROVIDERS: Family Provider Nurse Practitioner Family; PCP Nurse Practitioner Family; Referring Provider Urology; Visit Provider Urology
DX: E83.52 Hypercalcemia (principal)
CPT/HCPCS: 36415; 82306

== ENCOUNTER → 2025-06-28 16:41 | Outpatient (CLI) | payer OTHER, SELFPAY ==
[2019-08-14 18:00] VITALS: BMI 35.7
--- NOTE | 2025-06-28 16:43 | DI.MRI.S_ITS ---
PROCEDURE: MR THORACIC SPINE WO CON INDICATIONS: postlaminectomy syndrome TECHNIQUE: Noncontrast sagittal T1 spine echo and T2 fast spin echo, sagittal STIR, and T2 fast spin echo through the thoracic spine. COMPARISON: None. FINDINGS: Image quality: There is artifact associated with the metallic hardware. Alignment and Curvature: S shaped scoliotic curvature is seen, with a mild dextroconvex thoracic component and a [id number] levoconvex thoracolumbar component partially seen. Accentuated thoracic kyphosis is seen. Bone Marrow: Marrow is of normal overall signal. No acute vertebral body compression fractures. Several levels of remote compression deformity can be seen, which are overall worst at the T12 level, where there is 40-50% loss of height centrally. Spinal Cord: Visualized spinal cord is normal in size and signal. Paraspinous Soft Tissues: No paravertebral masses. Miscellaneous: A few levels of [id number] neural foraminal narrowing can be seen within the mid to lower masses spine. No significant central canal narrowing can be seen. Lumbar spine fixation hardware is partially seen. IMPRESSION: No acute abnormality of the thoracic spine can be seen. A few levels of [id number] neural foraminal narrowing can be seen within the mid to lower thoracic spine. There is S shaped scoliosis. There is mildly accentuated thoracic kyphosis. Dictated by: Fidel Wills M.D. on 06/28/2025 at 17:07 Approved by: Fidel Wills M.D. on 06/28/2025 at 17:11
== END ==
LOC: MRI 16:42
PROVIDERS: Family Provider Nurse Practitioner Family; PCP Nurse Practitioner Family; Referring Provider Anesthesiology Pain Medicine; Visit Provider Anesthesiology Pain Medicine
DX: M96.1 Postlaminectomy syndrome, not elsewhere classified (principal); M48.04 Spinal stenosis, thoracic region; M41.84 Other forms of scoliosis, thoracic region; Z98.1 Arthrodesis status
CPT/HCPCS: 72146

== ENCOUNTER 2025-08-26 09:33 | Emergency (ER) | payer OTHER, SELFPAY ==
[2019-08-14 18:00] VITALS: BMI 35.7
[2025-08-26 09:51] VITALS: BP 166/97; PULSE 72; RESP 20; TEMP 36.6; O2SAT 96; BMI 36.0
--- NOTE | 2025-08-26 11:38 | DI.US.S_ITS ---
PROCEDURE: US PERIPH VENOUS LOW EXTREM RT
[2025-08-26 12:48] LABS: Add Manual Diff / Slide Review NO; Hematocrit 38.1 % (41-53); Hemoglobin 12.9 g/dL (13.5-17.5); Lymphocytes Absolute Auto 1800 /uL (1100-4500); Mean Corpuscular HGB Conc 33.7 % (30-36); Mean Corpuscular Hemoglobin 29.4 PG (26-34); Mean Corpuscular Volume 87.1 fL (80-100); Platelet Count 146 X10^3/uL (150-400)
--- NOTE | 2025-08-26 12:51 | ED_ITS ---
HPI - Extremity Problem
--- NOTE | 2025-08-26 12:51 | ED.EXTPRO ---
HPI - Extremity Problem <Johnna Yo PA-C - Last Filed: 08/26/25 18:39> General Chief complaint: Extremity Problem,Nontraumatic Stated complaint: Burning in right leg. 3 weeks Time Seen by Provider: 08/26/25 11:15 Source: patient Mode of arrival: Ambulatory History of Present Illness HPI Narrative: 75-year-old male with past medical history bursitis of the right hip, leukemia, lymphoma, hypercalcemia, pituitary adenoma, hypogonadism, BPH with LUTS presents to the ED with right-sided hip and groin pain that has been worsening over the past couple months. Patient states that he has a known bursitis of the right hip and feels that it is might be an exacerbation of it. Patient denies any trauma. No numbness, tingling, weakness. No prior history of DVT, PE. No chest pain, shortness of breath, fever, chills, nausea, vomiting, abdominal pain, lightheadedness, dizziness, syncope. Related Data Home Medications ?Medication ?Instructions ?Recorded ?Confirmed allopurinol 300 mg tablet 300 mg PO DAILY 08/09/19 05/02/25 amlodipine 10 mg tablet 10 mg PO DAILY 08/09/19 05/02/25 levothyroxine 75 mcg capsule 75 mcg PO DAILY 08/09/19 05/02/25 omeprazole 20 mg tablet,delayed 20 mg PO DAILY 08/09/19 05/02/25 release cholecalciferol (vitamin D3) 10 10 mcg PO DAILY 09/13/24 05/02/25 mcg (400 unit) capsule semaglutide (weight loss) 2.4 2.4 mg SUBCUT QWEEK 09/13/24 05/02/25 mg/0.75 mL subcutaneous pen injector pregabalin 100 mg capsule 100 mg PO BID 01/31/25 05/02/25 Previous Rx's ?Medication ?Instructions ?Recorded potassium chloride 20 mEq 20 meq PO DAILY #20 tabs 01/24/23 tablet,extended release Allergies Allergy/AdvReac Type Severity Reaction Status Date / Time clindamycin Allergy Severe Rash Verified 01/31/25 13:30 diphenhydramine Allergy Intermediate Hives Verified 01/31/25 13:30 lisinopril AdvReac Severe Cough Verified 01/31/25 13:30 Review of Systems <Johnna Yo PA-C - Last Filed: 08/26/25 18:39> Constitutional Constitutional: Denies chills, Denies fatigue, Denies fever(s), Denies frequent falls, Denies lethargy and Denies weakness Eyes Eyes: Denies change in vision, Denies eye discharge, Denies irritation and Denies loss of vision ENT Ears, Nose, Mouth, and Throat: Denies change in voice, Denies dizziness, Denies neck pain, Denies sore throat and Denies throat swelling Cardiovascular Cardiovascular: Denies chest pain, Denies irregular heart rhythm, Denies lightheadedness, Denies palpitations, Denies dyspnea, Denies dyspnea on exertion and Denies orthopnea Respiratory Respiratory: Denies cough, Denies dyspnea, Denies dyspnea on exertion and Denies wheezing Gastrointestinal Gastrointestinal: Denies abdominal pain, Denies change in bowel habits, Denies diarrhea, Denies nausea and Denies vomiting Musculoskeletal Musculoskeletal: Denies neck pain and Denies numbness Comments: Right groin, upper thigh pain Integumentary/Breasts Skin/Breast: Denies pruritus, Denies erythema, Denies rash and Denies wounds Neurologic Neurologic: Denies behavioral changes, Denies confusion, Denies dizziness, Denies frequent falls, Denies loss of vision, Denies numbness and Denies weakness Psychiatric Psychiatric: Denies anxiety, Denies behavioral changes, Denies confusion, Denies depression, Denies homicidal ideation and Denies suicidal ideation Endocrine Endocrine: Denies fatigue, Denies flushing and Denies palpitations Hematologic/Lymphatic Hematologic/Lymphatic: Denies easy bruising Allergic/Immunologic Allergic/Immunologic: Denies urticaria, Denies throat swelling and Denies wheezing Patient History <Johnna Yo PA-C - Last Filed: 08/26/25 18:39> Medical History Decreased urine output Hypercalciuria Left ureteral calculus Right kidney stone Hypercalcemia History of pituitary adenoma History of hypogonadism History of lymphoma History of leukemia History of gout Lesion of left [place] kidney Kidney stones Hx of renal calculi History of arthritis Depression Gout Osteoarthritis Hypothyroid Colonic polyp Diverticulosis GERD (gastroesophageal reflux disease) Hernia HTN (hypertension) Spinal stenosis Scoliosis Hearing impaired Pituitary adenoma (~2013) Influenza A (~01/06/19) Pulmonary nodule Hyperlipidemia Surgical History History of left shoulder replacement History of lumbar laminectomy History of total left hip arthroplasty (~2013) Hx of tonsillectomy History of colonoscopy Hx of hernia repair (~2015) Family History Father Cancer Diabetes mellitus Brother Eczema UTI (urinary tract infection) Kidney stones Sister Hyperlipidemia Hypertension Thyroid disorder Social History marital status: household members: none alcohol intake: former substance use type: does not use caffeine: Yes Type(s) of exercise: walking frequency: 3-4 times per week duration: 60-90 minutes/day alcohol intake frequency: holidays/special occasions only Exam <Johnna Yo PA-C - Last Filed: 08/26/25 18:39> Narrative Exam Narrative: Const General:?cooperative, healthy appearing and comfortable HENAR Head:?normal to inspection Ears:?hearing grossly normal bilaterally Nose:?external nose normal Face and sinus:?normal facial exam and sinuses nontender Mouth:?oral mucosae normal Throat:?posterior oropharynx normal Eyes General:?appearance normal, both eyes and all related structures Neck Neck:?normal visual inspection and no lymphadenopathy noted Resp Effort & Inspection:?normal respiratory effort Auscultation:?clear to auscultation bilaterally Cardio Rate:?regular rate Rhythm:?regular rhythm Musculoskeletal No bruising, deformities noted on exam. There is mild tenderness to palpation of the upper thigh and groin. Full range of motion. Strength and sensation intact. Neurovascularly intact. Neuro General:?patient alert, patient awake and patient oriented x3 Initial Vital Signs Initial Vital Signs: Vital Signs Temperature 97.8 F 08/26/25 09:51 Pulse Rate 72 08/26/25 09:51 Respiratory Rate 20 08/26/25 09:51 Blood Pressure 166/97 H 08/26/25 09:51 Pulse Oximetry 96 08/26/25 09:51 Oxygen Delivery Method Room Air 08/26/25 09:51 <Eda Paz DO - Last Filed: 08/27/25 15:36> Initial Vital Signs Initial Vital Signs: Vital Signs Temperature 97.8 F 08/26/25 09:51 Pulse Rate 72 08/26/25 09:51 Respiratory Rate 20 08/26/25 09:51 Blood Pressure 166/97 H 08/26/25 09:51 Pulse Oximetry 96 08/26/25 09:51 Oxygen Delivery Method Room Air 08/26/25 09:51 Course <Johnna Yo PA-C - Last Filed: 08/26/25 18:39> Orders Ordered: ED Orders 08/26/25 11:38 US periph venous low extrem rt Stat 08/26/25 12:30 CBC Auto Diff [Complete Blood Count AUTO DIFF] Stat CMP [Comprehensive Metabolic Panel] Stat Lipase Stat MG [Magnesium] Stat PHOS [Phosphorous] Stat PT [Prothrombin Time INR] Stat PTT [PTT Partial Thromboplastin Dusty] Stat 08/26/25 13:31 XR hip w pel RT 2V Stat Vital Signs Vital signs: Vital Signs - 8 hr 08/26/25 09:51 Temperature 97.8 F Pulse Rate 72 Respiratory Rate 20 Blood Pressure 166/97 H Pulse Oximetry 96 Oxygen Delivery Method Room Air <Eda Paz DO - Last Filed: 08/27/25 15:36> Orders Ordered: ED Orders 08/26/25 11:38 US periph venous low extrem rt Stat 08/26/25 12:30 CBC Auto Diff [Complete Blood Count AUTO DIFF] Stat CMP [Comprehensive Metabolic Panel] Stat Lipase Stat MG [Magnesium] Stat PHOS [Phosphorous] Stat PT [Prothrombin Time INR] Stat PTT [PTT Partial Thromboplastin Dusty] Stat 08/26/25 13:31 XR hip w pel RT 2V Stat Vital Signs Vital signs: Vital Signs - 8 hr 08/26/25 09:51 Temperature 97.8 F Pulse Rate 72 Respiratory Rate 20 Blood Pressure 166/97 H Pulse Oximetry 96 Oxygen Delivery Method Room Air MDM - Extremity (Nontraumatic) <CHARLIE Sanderson Last Filed: 08/26/25 18:39> Lab Data 08/26/25 12:30 08/26/25 12:30 Labs: Lab Results 08/26/25 Range/Units 12:30 WBC 6.3 (4.5-11.0) X10^3/uL RBC 4.38 L (4.5-5.9) X10^6/uL Hgb 12.9 L (13.5-17.5) g/dL Hct 38.1 L (41-53) % MCV 87.1 (80-100) fL MCH 29.4 (26-34) PG MCHC 33.7 (30-36) % RDW 16.1 H (11.6-14.8) % Plt Count 146 L (150-400) X10^3/uL Neut % (Auto) 58.3 (50-75) % Lymph % (Auto) 28.0 (25-40) % Larue % (Auto) 8.8 (3-14) % Eos % (Auto) 4.0 (2-4) % Baso % (Auto) 0.9 (0-2) % Neut # (Auto) 3700 (2393-9637) /uL Lymph # (Auto) 1800 (1191-9285) /uL Larue # (Auto) 500 (0-900) /uL Eos # (Auto) 200 (0-450) /uL Baso # (Auto) 100 (0-100) /uL PT 10.0 (9.4-12.5) SECONDS INR 0.9 (0.9-1.3) APTT 27 (25.1-36.5) SECONDS Sodium 137 (137-145) mmol/L Potassium 4.2 (3.4-5.1) mmol/L Chloride 105 (98-107) mmol/L Carbon Dioxide 26 (22-32) mmol/L BUN 15 (9-20) mg/dL Creatinine 0.99 (0.66-1.25) mg/dL Estimated GFR > 60 (>60) mL/min BUN/Creatinine Ratio 15.2 (6-22) Glucose 98 (70-99) mg/dL Calcium 10.4 H (8.4-10.2) mg/dL Phosphorus 3.8 H (2.3-3.7) mg/dL Magnesium 2.0 (1.6-2.3) mg/dL Total Bilirubin 0.5 (0.2-1.3) mg/dL AST 34 (17-59) IU/L ALT 20 (<50) IU/L Alkaline Phosphatase 68 (38-126) U/L Total Protein 7.3 (6.3-8.2) g/dL Albumin 4.4 (3.5-5.0) g/dL Globulin 2.9 (1.7-4.1) g/dL Albumin/Globulin Ratio 1.5 (1.0-2.8) Lipase 168 (23-300) U/L MDM Narrative Medical decision making narrative: 75-year-old male with past medical history bursitis of the right hip, leukemia, lymphoma, hypercalcemia, pituitary adenoma, hypogonadism, BPH with LUTS presents to the ED with right-sided hip and groin pain that has been worsening over the past couple months. Concern for DVT versus musculoskeletal sprain/strain versus fracture/dislocation versus other. Will obtain ultrasound. Will obtain labs, given that patient is concerned about his hypercalcemia. Will consider x-ray. Ultrasound without DVT. Labs within normal limits. Calcium 10.4. X-ray was obtained which was also without acute findings. Discussed findings with patient. Patient's symptoms likely due to a musculoskeletal etiology, likely originating from the hip bursitis. Recommend follow-up with PCP, ortho as soon as possible. Recommend supportive care with Tylenol, ibuprofen, muscle relaxants. Patient already has some muscle relaxants from a prior injury. ED return precautions discussed with patient. Patient verbalized understanding. Medical records reviewed: Yes <Eda Paz, - Last Filed: 08/27/25 15:36> Lab Data Labs: Lab Results 08/26/25 Range/Units 12:30 WBC 6.3 (4.5-11.0) X10^3/uL RBC 4.38 L (4.5-5.9) X10^6/uL Hgb 12.9 L (13.5-17.5) g/dL Hct 38.1 L (41-53) % MCV 87.1 (80-100) fL MCH 29.4 (26-34) PG MCHC 33.7 (30-36) % RDW 16.1 H (11.6-14.8) % Plt Count 146 L (150-400) X10^3/uL Neut % (Auto) 58.3 (50-75) % Lymph % (Auto) 28.0 (25-40) % Larue % (Auto) 8.8 (3-14) % Eos % (Auto) 4.0 (2-4) % Baso % (Auto) 0.9 (0-2) % Neut # (Auto) 3700 (4136-7439) /uL Lymph # (Auto) 1800 (1217-5607) /uL Larue # (Auto) 500 (0-900) /uL Eos # (Auto) 200 (0-450) /uL Baso # (Auto) 100 (0-100) /uL PT 10.0 (9.4-12.5) SECONDS INR 0.9 (0.9-1.3) APTT 27 (25.1-36.5) SECONDS Sodium 137 (137-145) mmol/L Potassium 4.2 (3.4-5.1) mmol/L Chloride 105 (98-107) mmol/L Carbon Dioxide 26 (22-32) mmol/L BUN 15 (9-20) mg/dL Creatinine 0.99 (0.66-1.25) mg/dL Estimated GFR > 60 (>60) mL/min BUN/Creatinine Ratio 15.2 (6-22) Glucose 98 (70-99) mg/dL Calcium 10.4 H (8.4-10.2) mg/dL Phosphorus 3.8 H (2.3-3.7) mg/dL Magnesium 2.0 (1.6-2.3) mg/dL Total Bilirubin 0.5 (0.2-1.3) mg/dL AST 34 (17-59) IU/L ALT 20 (<50) IU/L Alkaline Phosphatase 68 (38-126) U/L Total Protein 7.3 (6.3-8.2) g/dL Albumin 4.4 (3.5-5.0) g/dL Globulin 2.9 (1.7-4.1) g/dL Albumin/Globulin Ratio 1.5 (1.0-2.8) Lipase 168 (23-300) U/L Discharge Plan Departure Patient Disposition: Home Clinical Impression: Groin pain Qualifiers: Laterality: right Qualified Code(s): R10.31 - Right lower quadrant pain Instructions: DI for Groin Strain Activity Restrictions/Additional Instructions: You were evaluated in the emergency department today for right-sided groin pain. The ultrasound did not show any blood clot clots/DVTs. The x-ray and labs were normal as well. The groin pain is most likely a musculoskeletal strain from the bursitis of the right hip. Please follow-up with your PCP/ortho specialist as soon as possible for further evaluation. In the meanwhile, you may take Tylenol, ibuprofen. You may also take the cyclobenzaprine that you already have for pain relief. Return to the emergency department if you have worsening symptoms, chest pain, shortness of breath. Prescriptions: No Action amlodipine 10 mg Tablet 10 mg PO DAILY allopurinol 300 mg Tablet 300 mg PO DAILY omeprazole 20 mg Tablet,Delayed Release (Dr/Ec) 20 mg PO DAILY levothyroxine 75 mcg Capsule 75 mcg PO DAILY potassium chloride 20 mEq tablet extended release 20 meq PO DAILY Qty: 20 0RF semaglutide (weight loss) 2.4 mg/0.75 mL pen injector 2.4 mg SUBCUT QWEEK cholecalciferol (vitamin D3) 10 mcg (400 unit) capsule 10 mcg PO DAILY pregabalin 100 mg capsule 100 mg PO BID Referrals: Issac Marrufo ARNP [Primary Care Provider, Nursing] Stand Alone Forms: Patient Portal/API ED Sign-out <Eda Paz DO - Last Filed: 08/27/25 15:36> Cosign ED Attending Cosignature Attestation: I was immediately available in the department for consultation.
[2025-08-26 12:57] LABS: INR 0.9 (0.9-1.3); Prothrombin Time 10.0 SECONDS (9.4-12.5)
[2025-08-26 13:00] LABS: PTT Partial Thromboplastin Tim 27 SECONDS (25.1-36.5)
[2025-08-26 13:06] LABS: Alanine Aminotransferase 20 IU/L (<50); Albumin 4.4 g/dL (3.5-5.0); Albumin Globulin Ratio 1.5 (1.0-2.8); Alkaline Phosphatase 68 U/L (38-126); Blood Urea Nitrogen 15 mg/dL (9-20); Calcium 10.4 mg/dL (8.4-10.2); Carbon Dioxide 26 mmol/L (22-32); Chloride 105 mmol/L (98-107); Estimated Glomerular Filt Rate > 60 mL/min (>60); Globulin 2.9 g/dL (1.7-4.1); Glucose 98 mg/dL (70-99); HEMOLYSIS < 15 (0-50); Lipase 168 U/L (23-300); Magnesium 2.0 mg/dL (1.6-2.3); Phosphorous 3.8 mg/dL (2.3-3.7); Potassium 4.2 mmol/L (3.4-5.1); Sodium 137 mmol/L (137-145); Total Protein 7.3 g/dL (6.3-8.2)
--- NOTE | 2025-08-26 13:31 | DI.RAD.S_ITS ---
PROCEDURE: XR HIP W PEL IF DONE RT 2V
--- NOTE | 2025-08-26 15:23 | PC.NURSE ---
patient reporting pain and swelling shooting down right leg and groin no apparent injury or deformity noted
== END 2025-08-26 15:12 | disposition home or self-care (01) ==
PROVIDERS: Emergency Provider Student in an Organized Health Care Education/Training Program; Family Provider Nurse Practitioner Family; PCP Nurse Practitioner Family
DX: R10.31 Right lower quadrant pain (principal)
CPT/HCPCS: 36415; 73502; 80053; 83690; 83735; 84100; 85025; 85610; 85730; 93971; 99283; 99284

== ENCOUNTER → 2025-10-10 12:38 | Outpatient (CLI) | payer OTHER, SELFPAY ==
[2019-08-14 18:00] VITALS: BMI 35.7
[2025-10-10 14:15] LABS: Appearance Urine UA CLEAR; Bilirubin Urine UA NEGATIVE (NEGATIVE); Color Urine UA YELLOW; Glucose Urine UA NEGATIVE (Negative); Ketones Urine UA TRACE (NEGATIVE); Leukocyte Esterase Urine UA NEGATIVE (NEGATIVE); Nitrite Urine UA NEGATIVE (Negative); Occult Blood Urine UA NEGATIVE (Negative); Protein Urine UA 1+ (Negative); Specific Gravity Urine UA 1.020 (1.000-1.035); Urobilinogen Urine UA 1.0 E.U./dL (0.2); pH Urine UA 6.0 (4.5-8.0)
[2025-10-10 14:22] LABS: Culture Indicated Urine Cult Not Indicated
== END ==
PROVIDERS: Family Provider Nurse Practitioner Family; PCP Nurse Practitioner Family; Referring Provider Urology; Visit Provider Urology
DX: R39.9 Unspecified symptoms and signs involving the genitourinary system (principal)
CPT/HCPCS: 81001